=== PATIENT | female | born 1970 | race Caucasian/White ===

== ENCOUNTER 2020-04-22 13:24 | Emergency (ER) | payer OTHER, SELFPAY ==
[2020-04-22 13:35] VITALS: BP 143/100; PULSE 86; RESP 16; TEMP 36.2; O2SAT 100
--- NOTE | 2020-04-22 13:54 | ECG_ITS ---
Measurements Intervals [place] Rate: 85 P: 34 UT: 135 QRS: 2 QRSD: 84 T: -4 QT: 379 QTc: 453 Interpretive Statements SINUS RHYTHM POSSIBLE LEFT ATRIAL ENLARGEMENT BORDERLINE ST-T WAVE ABNORMALITY- DIFFUSE LEADS BORDERLINE ECG Electronically Signed On 04-22-2020 15:18:04 CDT by Deandre Garcia D.O.
--- NOTE | 2020-04-22 13:56 | ED.CHESTPAIN ---
HPI - Chest Pain General Chief Complaint: Chest Pain Stated Complaint: hpb/r arm tingling/blurred vision Time Seen by Provider: 04/22/20 13:40 Source: patient and RN notes reviewed Mode of arrival: ambulatory Limitations: no limitations History of Present Illness HPI narrative: 50-year-old female who presents to express care with complaints of tightness and tingling in chest with heart racing for the past 4 days and intermittent blurry vision. She states that today she had sudden symptoms of migraine type head pain with tingling and numbness down her left arm, states she took goody powder. Patient does have a history of hypertension, asthma, and also states a long history of alcohol use and had been dry for 18 days but relapsed after drinking some wine.Patient denies any pain or visual disturbances at this time MD complaint: chest pain and other (tingling and numbness down left arm) Pertinent past history: other (hypertension, migraine, asthma) Onset (ago): day(s) (4) Timing of current episode: episodic and other (no pain or any tingling or numbness at present time) Prior episodes: Yes Pain location: left chest Pain radiation: left arm Quality: tightness Relieving factors: nothing Exacerbating factors: nothing Associated symptoms: palpitations Treatment prior to arrival: other (goody powder) Risk Factors Coronary artery disease risk factors: hypertension Thoracic aortic dissection risk factors: none Related Data Home Medications Medication Instructions Recorded Confirmed bupropion HCl 150 mg PO DAILY 04/22/20 04/22/20 bupropion HCl 300 mg PO DAILY 04/22/20 04/22/20 metoprolol succinate 50 mg PO DAILY 04/22/20 04/22/20 metoprolol succinate [Toprol XL] 100 mg PO DAILY 04/22/20 04/22/20 Allergies Allergy/AdvReac Type Severity Reaction Status Date / Time erythromycin base Allergy Mild Unknown Verified 04/22/20 15:26 Sulfa (Sulfonamide Allergy Mild Unknown Verified 04/22/20 15:26 Antibiotics) Review of Systems Review of Systems: Narrative: CONSTITUTIONAL: Denies fever, chills, or sweats. EYES: Denies visual changes, redness, or discharge. ENT: Denies rhinorrhea, congestion, sore throat, or otalgia. CARDIOVASCULAR: positive left chest pain, palpitations, no edema. RESPIRATORY: Denies cough or dyspnea. GASTROINTESTINAL: Denies abdominal pain, nausea, vomiting, or diarrhea. GENITOURINARY: Denies dysuria or hematuria. SKIN: Denies rash or itching. MUSCULOSKELETAL: Denies back pain, joint pain, or myalgia. NEUROLOGIC: intermittent headache, left arm numbness and tingling intermittent, or weakness. PSYCHIATRIC: Positiveanxiety or depression. All systems reviewed & are unremarkable except as noted in HPI and below PMFSH Past Medical History Medical History (Updated 04/24/20 @ 15:39 by Ashley Frederick NP) ADHD Alcohol use Asthma History of anxiety History of depression History of hypertension Migraines With left sided aura Scoliosis Social History Social History (Updated 04/23/20 @ 16:44 by Sabrina Stover PA-C) Social History: The patient was adopted and only aware of her grandmother having a CVA. Smoking packs per day: 1 Smoking cigarettes per day: 20.0 Years smoked: 18 Smoking pack-years: 18.00 Smoking status: Former smoker Tobacco type: cigarettes Alcohol intake: current Drinks per week: 24 Alcohol use details: She has been drinking for about 7 years. Most recently she has been drinking 1 bottle of wine per night for 3.5 weeks. Substance use: never Substance use type: does not use Living arrangements: with family Occupation/Education: occupation Gender identity (if verbalized by the patient): Female Spiritual care concerns: No Comments At time of signature, agree with nursing past medical, surgical, social and family history. There is no relevant family history pertinent to the presenting complaint Exam Narrative: Exam Narrative: GENERAL: well appearing, wel
--- NOTE | 2020-04-22 14:14 | PC.NURSE ---
[facility] called to transfer to [facility].
== END 2020-04-22 14:17 | disposition short-term general hospital (02) ==
LOC: EXPCOLL 13:28
PROVIDERS: Emergency Provider Registered Nurse; PCP Family Medicine
DX: R07.9 Chest pain, unspecified (principal); R51 Headache; Z87.891 Personal history of nicotine dependence; J45.909 Unspecified asthma, uncomplicated; F32.9 Major depressive disorder, single episode, unspecified; I10 Essential (primary) hypertension
CPT/HCPCS: 93005; 99215; G0463

== ENCOUNTER 2020-04-22 14:46 | Observation (INO) | payer OTHER, SELFPAY ==
[2020-04-22] VITALS (23 sets, daily range): BP systolic 119–207; BP diastolic 97–170; PULSE 78–101; RESP 16–24; TEMP 36.1–36.8; O2SAT 94–100; BMI 25.9; BMI 26.3
--- NOTE | ~2020-04-22 | XR_ITS ---
EXAMINATION: XR chest 2V DATE: 04/22/2020 16:10 INDICATION: Left upper back pain. Hypertension. TECHNIQUE: Frontal and lateral views of the chest were obtained. COMPARISON: Chest 2 views 01/18/2009 CT abdomen and pelvis 10/08/2013 FINDINGS: There are airspace opacities in left lower lung zone. No pleural effusion or pneumothorax. The heart size is normal. There is a moderate-sized hiatal hernia. IMPRESSION: 1. Airspace opacities in left lower lung zone, consistent with atelectasis versus pneumonia. 2. Moderate-sized hiatal hernia. Reviewed, dictated and finalized at location A. IMPRESSION: 1. Airspace opacities in left lower lung zone, consistent with atelectasis vers us pneumonia. 2. Moderate-sized hiatal hernia.
--- NOTE | ~2020-04-22 | CT_ITS ---
EXAMINATION: CT brain wo con DATE: 04/22/2020 16:08 INDICATION: Headache. Dizziness. TECHNIQUE: Computed tomography (CT) of the head was performed without intravenous contrast. The mA wa s adjusted according to patient size. Iterative reconstruction technique was employed. The dose-lengt h product was 605.33 mGy-cm. COMPARISON: None FINDINGS: There is no intracranial hemorrhage, acute infarction, or abnormal intracranial mass lesion . The ventricles are normal in size. The paranasal sinuses are clear. The orbits are normal. The mast oid air cells are normal. IMPRESSION: 1. Normal brain. Reviewed, dictated and finalized at location A. IMPRESSION: 1. Normal brain.
--- NOTE | 2020-04-22 15:01 | ECG_ITS ---
Measurements Intervals [place] Rate: 78 P: 51 IN: 139 QRS: 11 QRSD: 87 T: 1 QT: 397 QTc: 453 Interpretive Statements SINUS RHYTHM POSSIBLE LEFT ATRIAL ENLARGEMENT BORDERLINE ST-T WAVE ABNORMALITY- DIFFUSE LEADS BORDERLINE ECG Electronically Signed On 04-22-2020 15:20:33 CDT by Deandre Garcia D.O.
[2020-04-22] MEDS: ASPIRIN 81 MG CHEWABLE TABLET 324 MG PO (15:54)
--- NOTE | 2020-04-22 15:55 | ED.GENADULT ---
HPI - General Adult General Chief complaint: Unspecified Stated complaint: CP/BLURRED VISION Time Seen by Provider: 04/22/20 15:38 Source: patient Mode of arrival: EMS Limitations: no limitations History of Present Illness HPI narrative: This is a 50 year old female that presents to the ER for intermittent chest pain over the last 4 days. Describes it as tingling and substernal. Associated with palpitations and tingling in her left arm. Also reports headaches. Reports today she noted some blurry vision in the left eye which concerned her and prompted her to be seen. Reports she has been feeling dizzy. Denies fever, cough, shortness of breath, or current numbness or weakness. Related Data Home Medications Medication Instructions Recorded Confirmed bupropion HCl [Wellbutrin XL] 150 mg PO DAILY 04/22/20 04/22/20 metoprolol succinate [Toprol XL] 100 mg PO DAILY 04/22/20 04/22/20 Allergies Allergy/AdvReac Type Severity Reaction Status Date / Time erythromycin base Allergy Mild Unknown Verified 04/22/20 15:26 Sulfa (Sulfonamide Allergy Mild Unknown Verified 04/22/20 15:26 Antibiotics) Review of Systems Review of Systems: Narrative: CONSTITUTIONAL: Denies fever EYES: Reports visual changes CARDIOVASCULAR: Reports chest pain, palpitations. Denies edema. RESPIRATORY: Denies cough or dyspnea. NEUROLOGIC: Reports headache. Denies numbness, or weakness. All systems reviewed & are unremarkable except as noted in HPI and below PMFSH Past Medical History Medical History (Updated 04/22/20 @ 18:16 by Margy Whitt PA-C) History of anxiety History of depression History of hypertension Surgical History Surgical History (Updated 04/22/20 @ 16:02 by Margy Whitt PA-C) History of section History of hernia repair Social History Social History (Updated 04/22/20 @ 16:03 by Margy Whitt PA-C) Smoking status: Former smoker Alcohol intake: current Substance use: never Gender identity (if verbalized by the patient): Female Exam Narrative: Exam Narrative: GENERAL: Well-appearing, well-nourished, and in no acute distress. HEAD: Normocephalic, atraumatic. EYES: PERRLA and EOMI. ENT: Nares clear, no rhinorrhea or epistaxis. Mucous membranes moist. Oropharynx without tonsillar hypertrophy exudate or other lesions. Bilateral TMs pearly catherine non-bulging NECK: Supple. No adenopathy or masses. No carotid bruits or JVD CHEST: Clear to auscultation. No respiratory distress. No wheezes rales or rhonchi HEART: Regular rate and rhythm. No murmur heard. Normal peripheral pulses. EXTREMITIES: Normal range of motion. No edema. Strength equal in bilateral upper and lower extremities (5/5) SKIN: Warm, dry, no rash. NEURO: No focal deficits. Alert and oriented x3. Cranial nerves II through XII grossly intact. Normal [id number] PSYCH: Normal mood and affect Course Consultations Consultation #1: Spoke with hospitalist about patient and work-up who accepts admission Date: 04/22/20 Time: 18:17 Consultation #2: Spoke with plant taxonomy teacher, Dr. Ayers who reviewed EKG and will consult Date: 04/22/20 Time: 17:30 Vital Signs Vital signs: Vital Signs Temperature 98.3 F 04/22/20 14:52 Pulse Rate 86 04/22/20 14:52 Respiratory Rate 16 04/22/20 14:52 Blood Pressure 181/117 H 04/22/20 14:52 Pulse Oximetry 100 04/22/20 14:52 Temperature 98.3 F 04/22/20 14:52 Pulse Rate 80 04/22/20 17:51 Respiratory Rate 18 04/22/20 16:55 Blood Pressure 149/108 H 04/22/20 17:16 Pulse Oximetry 100 04/22/20 17:51 Medical Decision Making [facility] Narrative Medical decision making narrative: Patient presents to the emergency department with several complaints. Was reporting episodes of chest pain, dizziness, and tingling in the left arm, and headaches. She is afebrile and nontoxic-appearing. She is neurologically intact. Blood pressure elevated on arrival to 181/117. Given nitro and hydralazine with improve
[2020-04-22 16:38] LABS: Basophils Percent Auto 0.8 % (0.2-1.2); Eosinophils Absolute Auto 0.1 K/mm3 (0-0.3); Eosinophils Percent Auto 2.2 % (0-4.4); Hematocrit 43.8 % (37.0-47.0); Immature Granulocyte Absolute 0.01 K/mm3 (0.00-0.031); Immature Granulocyte Percent A 0.2 % (0-0.5); Lymphocytes Absolute Auto 1.15 K/mm3 (0.9-3.2); Lymphocytes Percent Auto 23.3 % (18.3-44.2); Mean Corpuscular HGB Conc 34.2 g/dl (32-36); Mean Corpuscular Hemoglobin 33.2 pg (26-34); Mean Corpuscular Volume 96.9 fl (80-100); Mean Platelet Volume 9.7 fl (7.4-10.4); Monocytes Absolute Auto 0.3 K/mm3 (0.1-0.6); Monocytes Percent Auto 5.3 % (2.6-8.5); Neutrophils Absolute Auto 3.4 K/mm3 (1.3-6.7); Neutrophils Percent Auto 68.2 % (45.5-73.1); Platelet Count Result 207 k/mm3 (150-375); Red Blood Count 4.52 M/mm3 (4.2-5.4); White Blood Count 4.9 K/mm3 (4.5-10.0)
[2020-04-22 16:41] LABS: Add Urine Microscopic? NO; Appearance Urine Clear (Clear); Bilirubin Urine Negative (Negative); Blood Urine Negative (Negative); Color Urine Yellow (Yellow); Glucose Urine UA Negative (Negative); Ketones Urine Negative (Negative); Leukocyte Esterase Ur Negative LEU/UL (Negative); Nitrate Urine Negative (Negative); Protein Urine Negative (Negative); Urobilinogen Urine Negative mg/dL (<2.0)
[2020-04-22] MEDS: NITROGLYCERIN SL 0.4 MG TABLET SUBLINGUAL ×2 (16:46→16:53)
--- NOTE | 2020-04-22 16:46 | PC.NURSE ---
Pt given ntg sublingual for chest pain, states I don't feel right becomes slightly anxious, c/o worsening chest pressure to the middle of her chest. Repeat EKG ordered.
[2020-04-22 16:48] LABS: Partial Thromboplastin Time 22.3 SECONDS (22.3-36.8); Prothrombin Time 12.8 Seconds (11.1-14.7)
--- NOTE | 2020-04-22 16:49 | ECG_ITS ---
Measurements Intervals [place] Rate: 92 P: 22 PA: 130 QRS: -2 QRSD: 89 T: -4 QT: 366 QTc: 455 Interpretive Statements SINUS RHYTHM BORDERLINE ST-T WAVE ABNORMALITY- ANT/INF LEADS BORDERLINE ECG Electronically Signed On 04-22-2020 16:55:50 CDT by Deandre Garcia D.O.
[2020-04-22 16:51] LABS: D Dimer 0.29 ug/mL (<0.48)
--- NOTE | 2020-04-22 16:53 | PC.NURSE ---
Repeat NTG given for chest pain 10/26. Pt becoming more anxious, is concerned about her ride and visitors.
[2020-04-22 16:54] LABS: Amphetamine Screen Urine Negative (Negative); Barbiturate Screen Urine Negative (Negative); Benzodiazepines Screen Urine Negative (Negative); Cannabinoid Screen Urine Negative (Negative); Cocaine Screen Urine Negative (Negative); Methadone Screen Urine Negative (Negative); Opiate Screen Urine Negative (Negative); Phencyclidine Screen Urine Negative (Negative)
--- NOTE | 2020-04-22 16:58 | PC.NURSE ---
Pt states thinks the pain is moving down now from her chest.
[2020-04-22 17:02] LABS: Anion Gap 10 mmol/L (8-16); Blood Urea Nitrogen 18 mg/dL (7-17); Calcium 9.7 mg/dL (8.4-10.2); Carbon Dioxide 26 mmol/L (22-30); Chloride 101 mmol/L (98-107); Estimated CRCL calculation 57 ml/min; Estimated Glomerular Filt Rate > 60; Glucose 106 mg/dL (65-105); Potassium 3.9 mmol/L (3.4-5.0); Sodium 137 mmol/L (137-145)
[2020-04-22 17:03] LABS: Alanine Aminotransferase 24 U/L (4-35); Albumin Level 4.8 g/dL (3.5-5.1); Alkaline Phosphatase 70 U/L (38-126); Aspartate Amino Transferase 29 U/L (14-36); Bilirubin,Total 0.6 mg/dL (0.2-1.3)
[2020-04-22 17:07] LABS: Ethanol < 10 mg/dL (<10)
[2020-04-22 17:14] LABS: Troponin I < 0.012 ng/mL (0.000-0.034)
[2020-04-22] MEDS: SODIUM CHLORIDE 0.9% IV 1,000 ML 999 ML IV CONT (17:48)
[2020-04-22] MEDS: hydrALAZINE HCL 20 MG/ML VIAL 10 MG IV PUSH (18:22)
--- NOTE | 2020-04-22 18:25 | PC.NURSE ---
Pt states that her midsternal chest pain is completely gone at present. States left sided chest pain continues and has been unchanged. States headache has also improved from the tylenol, but that it still remains behind her eyes a bit. Additional medication given IVP for high bp.
[2020-04-22 19:17] LABS: Troponin I < 0.012 ng/mL (0.000-0.034)
--- NOTE | 2020-04-22 20:07 | PC.NURSE ---
This patient, Daniela Pringle, was admitted to IMU Room 214-01 at 1938 on 04/22/20. Patient/family oriented to hospital policies and general routines including ID bracelet, bed and alarms, visiting hours, pain management, procedures, bathroom and other care routines, personal items, smoking policy, room service/diet, and visiting hours. Valuables list has been completed. Information on how to activate the Rapid Response Team has been discussed. Patient/Family are encouraged to report perceived risks to care and to ask questions if they do not understand what they are told or what they should do.
[2020-04-22 22:07] LABS: Troponin I < 0.012 ng/mL (0.000-0.034)
[2020-04-23] VITALS (23 sets, daily range): BP systolic 93–160; BP diastolic 60–111; PULSE 75–95; RESP 16–20; TEMP 35.9–36.6; O2SAT 97–100
--- NOTE | 2020-04-23 | ECHO_ITS ---
Patient Info Name: Daniela Pringle Age: 50 years : 1970 Gender: Female Ht: 64 in Wt: 153 lbs BSA: 1.79 m2 HR: 80 bpm BP: 159 / 106 mmHg Heart Rhythm: Sinus Rhythm Exam Date: 04/23/2020 2:30 PM Exam Location: [facility] Pulmonary Patient Status: Outpatient Admit Date: 04/22/2020 Staff Ordering Physician: Sabrina Stover PA-C Topographical Field Assistant: Santa Petty RDCS Attending Provider: Sabrina Stover PA-C Referring Physician: Ck JASSO; Exam Type: CA echo doppler color flow Study Info Complete two-dimensional, color flow and Doppler transthoracic echocardiogram is performed. Summary 1. Complete two-dimensional, color flow and Doppler transthoracic echocardiogram is performed. 2. Left ventricular chamber dimension is normal. 3. Left ventricular systolic function is normal, estimated at 65-70%. 4. There is mildly increased left ventricular wall thickness. 5. Left ventricular septal wall motion is normal. 6. The left ventricular diastolic function is normal. 7. Left atrial chamber dimension is mildly enlarged. 8. There is mild to moderate mitral valve regurgitation. 9. There is mild to moderate tricuspid valve regurgitation. 10. Mild pulmonary hypertension, estimated pulmonary arterial systolic pressure is 41 mmHg. 11. There is mild pulmonic regurgitation. Left Ventricle Left ventricular chamber dimension is normal. Left ventricular systolic function is normal, estimated at 65-70%. There is mildly increased left ventricular wall thickness. Left ventricular septal wall motion is normal. The left ventricular diastolic function is normal. Right Ventricle Right ventricular chamber dimension is normal. Right ventricular systolic function is normal. Left Atria Left atrial chamber dimension is mildly enlarged. Right Atria Right atrial chamber dimension is normal. Atrial Septum Intact interatrial septum visualized by color flow imaging. Aortic Valve The aortic valve is trileaflet. There is mild aortic valve sclerosis. There is no aortic valve stenosis. There is trace aortic valve regurgitation. Pulmonic Valve The pulmonic valve is normal. There is no pulmonic valve stenosis. There is mild pulmonic regurgitation. Mitral Valve The mitral valve has thickened leaflets. There is no mitral valve stenosis. There is mild to moderate mitral valve regurgitation. Tricuspid Valve The tricuspid valve leaflets are normal. There is no significant tricuspid valve stenosis. There is mild to moderate tricuspid valve regurgitation. Mild pulmonary hypertension, estimated pulmonary arterial systolic pressure is 41 mmHg. Pericardium/Pleural The pericardium appears normal. There is no pericardial effusion. Inferior Vena Cava Normal inferior vena cava with >50% collapse upon inspiration consistent with normal right atrial pressure, 5 mmHg. Aorta The aortic root size at the sinus of Valsalva is normal. The prox ascending aorta size is normal. Left Ventricular Outflow Tract Name Value Normal LVOT 2D LVOT Diameter 1.9 cm LVOT Doppler LVOT Peak Gradient 4 mmHg
[2020-04-23] MEDS: LORazepam 1 MG TABLET PO ×2 (00:06→13:56)
[2020-04-23] MEDS: ACETAMINOPHEN 325 MG TABLET 650 MG PO ×3 (00:07→21:52)
[2020-04-23] MEDS: METOPROLOL SUCCINATE EXT REL 100 MG TABCR PO (10:08)
[2020-04-23] MEDS: METOPROLOL SUCCINATE EXT REL 50 MG TABCR PO (10:09)
[2020-04-23] MEDS: buPROPion HCL XL (24 HR) 150 MG TABCR 300 MG PO (10:09)
[2020-04-23] MEDS: buPROPion HCL XL (24 HR) 150 MG TABCR PO (10:10)
--- NOTE | 2020-04-23 12:30 | PM.CNCAR ---
Assessment and Plan Assessment and plan (1) Lightheadedness: Code(s): R42 - Dizziness and giddiness Status: Acute Assessment and Plan: probably related to market hypertension (2) Alcohol use: Code(s): Z72.89 - Other problems related to lifestyle Status: Acute Assessment and Plan: Intermittently drinking up to 1 bottle wine per night (3) Hypertensive urgency: Code(s): I16.0 - Hypertensive urgency Status: Acute Assessment and Plan: likely the cause of her lightheadedness.continue metoprolol. Will add losartan. Up titrate had as needed (4) Chest pain: Qualifiers: Chest pain type: unspecified Qualified Code(s): R07.9 - Chest pain, unspecified Code(s): R07.9 - Chest pain, unspecified Status: Acute Assessment and Plan: Chest pain is atypical. She has various chest pain symptoms /syndrome including a chest tightness/squeezing that has been present for the past couple months. She also has a low a different type of left-sided chest tightness. And she had the 2 types of chest pain that occurred yesterday in the ER. none of these though are related to exertion. She also has same fluttering and some tingling in the left side of her chest also. Some of these sensations may be related to markedly elevated high blood pressure versus anxiety but cannot exclude angina especially given her abnormal EKG. Start her on aspirin 81 mg p.o. daily. Continue metoprolol. Will initiate losartan therapy 25 mg p.o. daily. EKG will be reordered today and a 2D echocardiogram Doppler was also ordered. She does need a stress test which likely will occur as an outpatient Depending on the results of the above workup. Will check a lipid panel (5) History of anxiety: Code(s): Z86.59 - Personal history of other mental and behavioral disorders Status: Acute (6) Abnormal EKG: Code(s): R94.31 - Abnormal electrocardiogram [ECG] [EKG] Status: Acute Assessment and Plan: will repeat EKG now. History of Present Illness History of Present Illness Consult date/time: 04/23/20 12:30 Requesting physician: Sabrina Stover PA-C Consult reason: chest pain Reason For Visit: Chest pain/hypertensive urgency Narrative: Date of service 04/23/2020 Reason for consultation chest pain History: Patient is a 50-year-old female who does not have known cardiac history. She does have a history of high blood pressure and depression. She came to the hospital because of some dizziness, high blood pressure and Blurry vision in her left eye. She states that her left eye felt as if she was having aura of a migraine which he sometimes has. while in the emergency department she did have an episode of some left-sided, under the breast, chest pain. She was then given nitroglycerin and had anterior chest pressure. She states that it felt as if something was pushing on her. That symptom lasted for about 15 minutes and had waxing waning discomfort that would occur last for about 10-15 seconds at a time. She then later to redevelop the tightness involving the left side and also had some fluttering and butterfly sensation. She does describe some occasional flutters in her chest. Additionally she has a different type of chest discomfort that occurs intermittently on the left side as well as a tightness that she thinks may be related to her back or musculoskeletal. It has been present for the past couple of months and she does say that it is a squeezing sensation but is not brought on with exertion and not associated with other symptoms. She denies any syncope, presyncope, paroxysmal nocturnal dyspnea, orthopnea, edema. Her blood pressure at home was as high is nearly 190 systolic. She currently has no chest pain. Troponins were negative. EKG showed some anteroseptal ST and T-wave abnormalities, consider ischemia Review of Systems Review of Systems: All syste
--- NOTE | 2020-04-23 12:43 | ECG_ITS ---
Measurements Intervals [place] Rate: 71 P: 45 [place]: 127 QRS: 24 QRSD: 90 T: 29 QT: 426 QTc: 465 Interpretive Statements SINUS RHYTHM POSSIBLE LEFT ATRIAL ENLARGEMENT ST-T WAVE ABNORMALITY IN ANTERIOR LEADS- CONSIDER ISCHEMIA ABNORMAL ECG Electronically Signed On 04-23-2020 15:18:33 CDT by Deandre Garica D.O.
[2020-04-23 13:43] LABS: Cholesterol 310 mg/dL (0-200); HDL Direct 72 mg/dL; Triglycerides 187 mg/dL (<150)
[2020-04-23 13:53] LABS: LDL Cholesterol Direct 207 mg/dL
[2020-04-23] MEDS: LOSARTAN POTASSIUM 25 MG TABLET PO (13:56)
[2020-04-23] MEDS: ASPIRIN 81 MG ENTERIC TABLET PO (14:18)
--- NOTE | 2020-04-23 16:34 | PM.IMHP ---
H&P: HPI History of Present Illness Date/Time: 04/23/20 16:34 Chief complaint: Chest pain/hypertensive urgency Narrative: Daniela Pringle is a 50 year old female with a history anxiety, ADHD, who presents to the emergency department after having an episode intermittent sharp, jabbing chest pain to her left chest wall. The patient states for the last few days she has been feeling ?strange?. She has been having the feeling of ?head pressure?, lightheadedness and palpitations with an occasional extra beat. This is worse with activity and or stressful situations. She has also been checking her blood pressure and his been more elevated than normal. Prior to arrival she was swimming and when to walk a hill into her kitchen and had a sudden episode of left-sided blurry vision along with lightheadedness. She took a dose of Excedrin powder with some improvement of her vision but she continued to have some lightheadedness and was having some chest discomfort so decided to come to the hospital to be evaluated. While she was in the ER she reported upper chest sternal pressure with associated lightheadedness. She also has occasional pressure to her bilateral ribs and some numbness and tingling at times. She denies any associated shortness of breath, cough, fevers, chills, nausea, vomiting, abdominal pain, diarrhea, fever, chills, sick contacts, urinary symptoms, leg swelling, calf pain, syncope, or any other symptoms at this time. She does not know her family history because she was adopted. She has never had a cardiac workup before. Code status: Full code PCP: Dr. Lo Review of Systems Review of Systems: All systems reviewed & are unremarkable except as noted in HPI and below PMFSH Past Medical History Medical History (Updated 04/23/20 @ 16:42 by Sabrina Stover PA-C) ADHD Alcohol use Asthma History of anxiety History of depression History of hypertension Migraines With left sided aura Scoliosis Surgical History Surgical History History of section History of hernia repair Hx of colonoscopy Family History Family History Grandparent Cerebrovascular accident Social History Social History (Updated 04/23/20 @ 16:44 by Sabrina Stover PA-C) Social History: The patient was adopted and only aware of her grandmother having a CVA. Smoking packs per day: 1 Smoking cigarettes per day: 20.0 Years smoked: 18 Smoking pack-years: 18.00 Smoking status: Former smoker Tobacco type: cigarettes Alcohol intake: current Drinks per week: 24 Alcohol use details: She has been drinking for about 7 years. Most recently she has been drinking 1 bottle of wine per night for 3.5 weeks. Substance use: never Substance use type: does not use Living arrangements: with family Occupation/Education: occupation Gender identity (if verbalized by the patient): Female Spiritual care concerns: No Meds Home Medications and Allergies Home Medications Medication Instructions Recorded Confirmed Type bupropion HCl 150 mg PO DAILY 04/22/20 04/22/20 History bupropion HCl 300 mg PO DAILY 04/22/20 04/22/20 History metoprolol succinate 50 mg PO DAILY 04/22/20 04/22/20 History metoprolol succinate [Toprol XL] 100 mg PO DAILY 04/22/20 04/22/20 History Allergies Allergy/AdvReac Type Severity Reaction Status Date / Time erythromycin base Allergy Mild Unknown Verified 04/22/20 15:26 Sulfa (Sulfonamide Allergy Mild Unknown Verified 04/22/20 15:26 Antibiotics) Vital Signs Vital Signs - 24 hr 04/22/20 16:46 04/22/20 16:55 04/22/20 17:09 Temperature Pulse Rate 80 91 95 Pulse Rate [Monitor] Respiratory Rate 18 Blood Pressure 179/129 H 147/117 H 138/107 H Pulse Oximetry 99 94 04/22/20 17:10 04/22/20 17:11 04/22/20 17:12 Temperature Pulse Rate 89 92 101 H Pul
[2020-04-23] MEDS: hydrALAZINE HCL 20 MG/ML VIAL 10 MG IV PUSH (20:54)
--- NOTE | 2020-04-23 22:34 | PC.NURSE ---
Pt put sound person light and stated I feel dizzy after I ate When RN went down to speak to pt, she stated she had eaten and gotten up to go to the bathroom and felt dizzy and pressure in her head. RN advised pt not to get up by herself any more without calling for help. BP was 113/77. Pt has been hypertensive and received 10mg hydralazine fitting the parameters with a diastolic of 104. Advised her that it's likely her body adjusting to a normal blood pressure and the medications. Will recheck BP.
[2020-04-24] VITALS (12 sets, daily range): BP systolic 105–140; BP diastolic 80–94; PULSE 72–90; RESP 16–20; TEMP 35.5–36.8; O2SAT 99
[2020-04-24] MEDS: ACETAMINOPHEN 325 MG TABLET 650 MG PO (04:35)
[2020-04-24] MEDS: LORazepam 1 MG TABLET PO (08:39)
[2020-04-24] MEDS: buPROPion HCL XL (24 HR) 150 MG TABCR 300 MG PO (08:40)
[2020-04-24] MEDS: buPROPion HCL XL (24 HR) 150 MG TABCR PO (08:40)
[2020-04-24] MEDS: METOPROLOL SUCCINATE EXT REL 100 MG TABCR PO (08:40)
[2020-04-24] MEDS: ASPIRIN 81 MG ENTERIC TABLET PO (08:41)
[2020-04-24] MEDS: METOPROLOL SUCCINATE EXT REL 50 MG TABCR PO (08:41)
[2020-04-24] MEDS: LOSARTAN POTASSIUM 25 MG TABLET PO (08:42)
--- NOTE | 2020-04-24 12:17 | PM.PNCARD ---
Progress Note: A&P Assessment and Plan (1) Lightheadedness: Code(s): R42 - Dizziness and giddiness Status: Acute Assessment and Plan: Resolved with blood pressure control (2) Alcohol use: Code(s): Z72.89 - Other problems related to lifestyle Status: Acute Assessment and Plan: Intermittently drinking up to 1 bottle wine per night (3) Hypertensive urgency: Code(s): I16.0 - Hypertensive urgency Status: Acute Assessment and Plan: likely the cause of her lightheadedness.continue metoprolol. blood pressure is improved. Continue losartan and metoprolol. Up titrate had as needed (4) Chest pain: Qualifiers: Chest pain type: unspecified Qualified Code(s): R07.9 - Chest pain, unspecified Code(s): R07.9 - Chest pain, unspecified Status: Acute Assessment and Plan: Chest pain is atypical. She has various chest pain symptoms /syndrome including a chest tightness/squeezing that has been present for the past couple months. She also has a low a different type of left-sided chest tightness. And she had the 2 types of chest pain that occurred yesterday in the ER. none of these though are related to exertion. She also has same fluttering and some tingling in the left side of her chest also. Some of these sensations may be related to markedly elevated high blood pressure versus anxiety but cannot exclude angina especially given her abnormal EKG. Continue aspirin, metoprolol, statin, losartan. She should be discharged on p.r.n. nitroglycerin 0.4 mg sublingual chest pain. Outpatient stress test will be scheduled. she will also be discharged on a PPI in the form of omeprazole 20 mg daily (5) History of anxiety: Code(s): Z86.59 - Personal history of other mental and behavioral disorders Status: Acute Assessment and Plan: Needs treatment (6) Abnormal EKG: Code(s): R94.31 - Abnormal electrocardiogram [ECG] [EKG] Status: Acute Assessment and Plan: abnormal and still concerning for anteroseptal ischemia (7) Hyperlipidemia: Code(s): E78.5 - Hyperlipidemia, unspecified Status: Acute Assessment and Plan: will start rosuvastatin 20 mg daily. I did talked about the risks of muscle aches, muscle tissue breakdown, liver dysfunction. She verbalizes understanding Subjective Date/time seen: 04/24/20 12:17 Interval history: 50-year-old mid for hypertension, chest pain and abnormal EKG. Date of service 04/24/2020: She currently has no chest pain, shortness of breath. Echocardiogram read yesterday with normal EF and no wall motion abnormalities. Blood pressure is better. Review of Systems Review of Systems: All systems reviewed & are unremarkable except as noted in HPI and below Constitutional: Constitutional: Denies fatigue, Denies headache(s) and Denies weakness Eyes: Eyes: Reports blurry vision ENT: Reports Normal hearing present, Denies headache(s) and Denies lip swelling Cardiovascular: Cardiovascular: Reports chest pain and Denies dyspnea Respiratory: Respiratory: Denies dyspnea Gastrointestinal: Gastrointestinal: Denies abdominal pain Genitourinary: Genitourinary: Denies hematuria Musculoskeletal: Musculoskeletal: Reports back pain Integumentary/Breasts: Skin/Breast: Denies dry skin Neurologic: Reports Normal hearing present, Denies headache(s) and Denies weakness Psychiatric: Psychiatric: Reports anxiety Endocrine: Endocrine: Denies fatigue Hematologic/Lymphatic: Hematologic/Lymphatic: Denies easy bleeding Allergic/Immunologic: Allergic/Immunologic: Denies GI upset with certain foods and Denies lip swelling Exam Narrative: Exam Narrative: patient is alert oriented. Pleasant but anxious Const: General: no acute distress HENMT: General nose exam: Normal nares present Eyes: Sclera: sclerae normal Neck: Neck: supple and no JVD Chest: Other: no
--- NOTE | 2020-04-24 13:29 | PM.DS ---
DS: Admitting Diagnosis Admitting Diagnosis Admitting Diagnosis: Chest pain/hypertensive urgency DS: Discharge Diagnosis Discharge Diagnosis (1) Chest pain: Qualifiers: Chest pain type: unspecified Qualified Code(s): R07.9 - Chest pain, unspecified Code(s): R07.9 - Chest pain, unspecified Status: Acute Assessment and Plan: Patient presented with atypical chest pain and was found to have an abnormal EKG was admitted for further telemetry, cardiac workup and cardiology evaluation. Troponins were negative x3. Normal chest x-ray. Echocardiogram showed Left ventricular chamber dimension is normal. Left ventricular systolic function is normal, estimated at 65-70%. There is mildly increased left ventricular wall thickness. Left ventricular septal wall motion is normal. The left ventricular diastolic function is normal. BP is improved after starting new medication. Cardiology would like to start the patient on Aspirin 81 mg, Statin, and discharge on Nitro SL PRN for chest pain. Continue Metoprolol. She will be scheduled for out patient stress test. Return to ER warnings given. Cardiology evaluated the patient and recommended starting 81 mg aspirin daily Continue monitoring the patient's chest pain in telemetry. Cardiology's input is greatly appreciated. (2) Abnormal EKG: Code(s): R94.31 - Abnormal electrocardiogram [ECG] [EKG] Status: Acute Assessment and Plan: EKG is abnormal showing possible atrial enlargement and ST T-wave abnormality in anterior leads. At this time troponins are normal. Cardiology would like stress test as an outpatient and will be discharged with nitroglycerin to take as needed for chest pain. She is not have any chest pain at this time (3) Hypertensive urgency: Code(s): I16.0 - Hypertensive urgency Status: Acute Assessment and Plan: Patient's blood pressure is been uncontrolled while she has been here 150 systolic and 100 diastolic. Continue losartan 25 mg (4) Alcohol use: Code(s): Z72.89 - Other problems related to lifestyle Status: Acute Assessment and Plan: Patient has been drinking 1 bottle 1 at night for the last 3-1/2 weeks. Last night her CIWA was 9 and she was given IV Ativan. Her CIWA today has been stable and most of her symptoms have been her underlying Anxiety which IV Ativan has helped. Educated patient to quit drinking alcohol to prevent further issues in the future. (5) Lightheadedness: Code(s): R42 - Dizziness and giddiness Status: Acute Assessment and Plan: Asymptomatic during hospitalization. Most likely secondary to uncontrolled high blood pressure. (6) History of anxiety: Code(s): Z86.59 - Personal history of other mental and behavioral disorders Status: Acute Assessment and Plan: Has a history of anxiety in the past. She states she had been on benzos and was weaned off over time after having withdrawal symptoms. She asked me about prescribing her something for anxiety and I suggested prescribing her BuSpar but she states she has taken in the past without any improvement. I told her this is something that she will need to talk to her primary care provider about and see what they would like to prescribe DS: Summary Hospital Course Reason for hospitalization: Daniela Pringle is a 50 year old female with a history anxiety, ADHD, who presents to the emergency department after having an episode intermittent sharp, jabbing chest pain to her left chest wall. The patient states for the last few days she has been feeling ?strange?. She has been having the feeling of ?head pressure?
== END 2020-04-24 15:10 | disposition home or self-care (01) ==
LOC: ANHED 18:16 → ANHIMU 18:46
PROVIDERS: Internal Medicine Cardiovascular Disease; Physician Assistant; Admitting Provider Family Medicine; Emergency Provider Emergency Medicine; PCP Family Medicine; Visit Provider Internal Medicine
DX: R07.9 Chest pain, unspecified (principal); R94.31 Abnormal electrocardiogram [ECG] [EKG]; I16.0 Hypertensive urgency; Z72.89 Other problems related to lifestyle; R42 Dizziness and giddiness; Z86.59 Personal history of other mental and behavioral disorders; Z87.891 Personal history of nicotine dependence; E78.5 Hyperlipidemia, unspecified
CPT/HCPCS: 36415; 70450; 71046; 80048; 80061; 80076; 80307; 81003; 84484; 85025; 85380; 85610; 85730; 93005; 93306; 96361; 96365; 96374; 96375; 99285; A9270; G0378; G0379; J0131; J0360; J7030

== ENCOUNTER 2020-11-01 10:07 | Outpatient (CLI) | payer OTHER, SELFPAY ==
--- NOTE | 2020-11-04 12:46 | WPDHOLTEREM ---
Holter/Event Monitor Holter/Event Monitor Date of procedure: 11/01/20 Procedure Type: 48 hour holter monitor Indications: Palpitations Conclusion: 1. 48 hour holter monitor on 11/01/20. 2. Underlying rhythm is sinus rhythm. HR range 66-125 bpm; average HR 88 bpm. 3. There are 47 premature supraventricular complexes. No supraventricular tachycardia. 4. No premature ventricular complexes. No ventricular tachycardia. 5. No sinoatrial or atrioventricular blocks. No significant pauses greater than 2 seconds. 6. Patient reports symptoms of heart racing, palpitations which demonstrate sinus rhythm, HR range 75-105 bpm.
== END 2020-11-01 10:08 | disposition home or self-care (01) ==
PROVIDERS: PCP Family Medicine; Visit Provider Family Medicine
DX: R00.2 Palpitations (principal)
CPT/HCPCS: 86706; 93225; 93226

== ENCOUNTER 2022-05-15 12:03 | Emergency (ER) | payer OTHER, SELFPAY ==
--- NOTE | ~2022-05-15 | US_ITS ---
EXAMINATION: US pelvic complete w TV DATE: 05/15/2022 15:28 INDICATION: Right adnexal cyst seen on CT Comparison:CT dated 05/15/2022 TECHNIQUE: Multiple transabdominal and endovaginal sonographic images of the pelvis performed. FINDINGS: The uterus measures 6.6 x 3.2 x 3 cm. The endometrial complex measures 7 mm. The right ovary measures 1.9 x 2 x 1.5 cm. There is a 1.5 cm hypoechoic mass of the right ovary, like ly complicated cyst. The left ovary is not visualized. There is no free fluid in the pelvis. There are no abnormal masses seen on either side. IMPRESSION: 1. Right ovarian hypoechoic mass measuring 1.5 cm, likely complicated cysts. Recommend follow-up ultr asound in 4-6 weeks. Reviewed, dictated and finalized at location B. IMPRESSION: 1. Right ovarian hypoechoic mass measuring 1.5 cm, likely complicated cysts. Re commend follow-up ultrasound in 4-6 weeks.
--- NOTE | ~2022-05-15 | CT_ITS ---
EXAMINATION: CT abdomen pelvis w con DATE: 05/15/2022 13:38 INDICATION: Right lower quadrant pain TECHNIQUE: Computed tomography (CT) of the abdomen and pelvis was performed with 100 cc Omnipaque 350 intravenous contrast. The dose-length product was 315.04 mGy-cm. Automated exposure control and iter ative reconstruction technique were employed. COMPARISON: CT dated 10/08/2013 FINDINGS: There is a large hiatal hernia. Heart size normal. No significant pleural or pericardial ef fusion. No significant pleural or pericardial effusion. No significant vascular abnormality. No lymph adenopathy. Normal appendix. There is a 1.9 cm cyst in the right adnexa, likely ovarian. Nonobstructi ve bowel gas pattern. The liver, spleen, pancreas, adrenal glands and left kidney are unremarkable. There is a small subcen timeter hypodensity in the right kidney, most likely benign. No free air or free fluid. Gallbladder i s present. Bladder is unremarkable. There is scoliosis. Moderate lumbar spondylosis. IMPRESSION: 1. Right adnexal cyst measuring 1.9 cm, likely ovarian. Reviewed, dictated and finalized at location B.
[2022-05-15 12:11] VITALS: BP 122/80; PULSE 107; RESP 18; TEMP 36.7; O2SAT 99
[2022-05-15 12:25] LABS: Basophils Absolute Auto 0.1 K/mm3 (0.0-0.1); Basophils Percent Auto 1.3 % (0.2-1.2); Eosinophils Percent Auto 0.8 % (0-4.4); Hemoglobin 13.3 g/dL (12.0-15.0); Immature Granulocyte Absolute 0.01 K/mm3 (0.00-0.031); Immature Granulocyte Percent A 0.2 % (0-0.5); Lymphocytes Absolute Auto 1.16 K/mm3 (0.9-3.2); Lymphocytes Percent Auto 24.3 % (18.3-44.2); Mean Corpuscular Hemoglobin 33.6 pg (26-34); Mean Platelet Volume 9.1 fl (7.4-10.4); Monocytes Absolute Auto 0.3 K/mm3 (0.1-0.6); Monocytes Percent Auto 7.1 % (2.6-8.5); Neutrophils Absolute Auto 3.2 K/mm3 (1.3-6.7); Neutrophils Percent Auto 66.3 % (45.5-73.1); Platelet Count Result 270 k/mm3 (150-375); Red Blood Count 3.96 M/mm3 (4.2-5.4); Red Cell Distribution Width 11.9 % (11.5-14.5); White Blood Count 4.8 K/mm3 (4.5-10.0)
[2022-05-15 12:38] LABS: Appearance Urine Cloudy (Clear); Bilirubin Urine 1+ (Negative); Blood Urine Negative (Negative); Color Urine Yellow (Yellow); Glucose Urine UA Negative (Negative); Ketones Urine Negative (Negative); Leukocyte Esterase Ur Negative LEU/UL (Negative); Nitrate Urine Negative (Negative); Protein Urine Negative (Negative); Urobilinogen Urine 0.2 mg/dL (<2.0); pH Urine 5.5 (5.0-9.0)
[2022-05-15 12:44] LABS: Bacteria Urine 4+ /hpf; Mucus Urine Few /lpf; Squamous Epithelial Cell Urine Many /hpf (Few); WBC Urine 16-20 /hpf
[2022-05-15 12:45] LABS: Add Urine Microscopic? YES
[2022-05-15 12:47] LABS: Alanine Aminotransferase 74 U/L (6-35); Albumin Level 4.8 g/dL (3.5-5.1); Alkaline Phosphatase 108 U/L (38-126); Anion Gap 16 mmol/L (8-16); Aspartate Amino Transferase 103 U/L (14-36); Bilirubin,Total 1.6 mg/dL (0.2-1.3); Blood Urea Nitrogen 22 mg/dL (7-17); Calcium 10.7 mg/dL (8.4-10.2); Carbon Dioxide 18 mmol/L (22-30); Chloride 101 mmol/L (98-107); Estimated CRCL calculation 37 ml/min; Estimated Glomerular Filt Rate 40; Glucose 139 mg/dL (65-110); Lipase 599 U/L (23-300); Potassium 4.7 mmol/L (3.4-5.0); Sodium 135 mmol/L (137-145)
[2022-05-15 13:01] VITALS: BP 110/81; PULSE 87; RESP 16; O2SAT 99
[2022-05-15 15:38] VITALS: BP 112/84; PULSE 86; RESP 14; O2SAT 99
--- NOTE | 2022-05-15 16:27 | ED.ABDPAIN ---
HPI - Abdominal Pain General Chief Complaint: Abdominal Pain Stated Complaint: r abd pain Time Seen by Provider: 05/15/22 12:56 History of Present Illness HPI narrative: Patient is a 52-year-old female who presents ER with right lower quadrant abdominal pain. Ongoing for 4 days. Aching. Nonradiating. No urinary frequency urgency or dysuria. No vaginal bleeding. She is without diarrhea. Has been having increased pain with palpation certain movements. Referred here from urgent care. No history of appendectomy. Related Data Home Medications Medication Instructions Recorded Confirmed bupropion HCl 150 mg 24 hr tablet, 150 mg PO DAILY 04/22/20 04/22/20 extended release bupropion HCl 300 mg 24 hr tablet, 300 mg PO DAILY 04/22/20 04/22/20 extended release metoprolol succinate 100 mg 100 mg PO DAILY 04/22/20 04/22/20 tablet,extended release 24 hr (Toprol XL) metoprolol succinate 50 mg 50 mg PO DAILY 04/22/20 04/22/20 tablet,extended release 24 hr Allergies Allergy/AdvReac Type Severity Reaction Status Date / Time erythromycin base Allergy Mild Unknown Verified 05/15/22 12:14 Sulfa (Sulfonamide Allergy Mild Unknown Verified 05/15/22 12:14 Antibiotics) [facility] Past Medical History Medical History (Updated 05/15/22 @ 16:28 by Cornel Morillo MD) ADHD Alcohol use Asthma History of anxiety History of depression History of hypertension Migraines With left sided aura Scoliosis Surgical History Surgical History History of section History of hernia repair Hx of colonoscopy Family History Family History Grandparent Cerebrovascular accident Social History Social History (Updated 04/23/20 @ 16:44 by Sabrina Chang PA-C) Social History: The patient was adopted and only aware of her grandmother having a CVA. Smoking packs per day: 1 Smoking cigarettes per day: 20.0 Years smoked: 18 Smoking pack-years: 18.00 Smoking status: Former smoker Tobacco type: cigarettes Alcohol intake: current Drinks per week: 24 Alcohol use details: She has been drinking for about 7 years. Most recently she has been drinking 1 bottle of wine per night for 3.5 weeks. Substance use: never Substance use type: does not use Gender identity (if verbalized by the patient): Female Spiritual care concerns: No Exam Narrative: GENERAL: Well-appearing, well-nourished, and in no acute distress. HEAD: Normocephalic, atraumatic. EYES: PERRL and EOMI. ENT: Mucous membranes moist. CHEST: Clear to auscultation. No respiratory distress. HEART: Regular rate and rhythm. Normal peripheral pulses. ABDOMEN: Soft, tender palpation right lower quadrant without guarding, nondistended. EXTREMITIES: Normal range of motion. No edema. SKIN: Warm, dry, no rash. Bruising over the right lower quadrant in the shape of fingerprints from patient's repeated palpation. NEURO: Alert and oriented x3. PSYCH: Normal mood and affect. Course Course Emergency Course: Patient informed of results. Discussed follow-up plans and patient verbalized understanding. Discharge home. Vital Signs Vital signs: Vital Signs Temperature 98.0 F 05/15/22 12:11 Pulse Rate 107 H 05/15/22 12:11 Respiratory Rate 18 05/15/22 12:11 Blood Pressure 122/80 05/15/22 12:11 Pulse Oximetry 99 05/15/22 12:11 Oxygen Delivery Room Air 05/15/22 12:11 Temperature 98.0 F 05/15/22 12:11 Pulse Rate 86 05/15/22 15:38 Respiratory Rate 14 05/15/22 15:38 Blood Pressure 112/84 05/15/22 15:38 Pulse Oximetry 99 05/15/22 15:38 Oxygen Delivery Room Air 05/15/22 12:11 MDM - Abdominal Pain Lab Data Result diagrams: 05/15/22 12:17 05/15/22 12:17 Labs: Lab Results 05/15/22 05/15/22 05/15/22 Range/Units 12:17 12:17 12:32 WBC 4.8 (4.5-10.0) K/mm3
[2022-05-15 16:44] VITALS: BP 112/82; PULSE 88; RESP 18; O2SAT 98
== END 2022-05-15 16:45 | disposition home or self-care (01) ==
PROVIDERS: Emergency Provider Emergency Medicine; PCP Family Medicine
DX: N83.201 Unspecified ovarian cyst, right side (principal); I10 Essential (primary) hypertension; J45.909 Unspecified asthma, uncomplicated; F41.9 Anxiety disorder, unspecified; F32.A Depression, unspecified; F90.9 Attention-deficit hyperactivity disorder, unspecified type; Z87.891 Personal history of nicotine dependence
CPT/HCPCS: 36415; 74177; 76830; 76856; 80053; 81001; 83690; 85025; 87086; 87088; 99284; Q9967

== ENCOUNTER 2022-11-15 17:02 | Outpatient (CLI) | payer OTHER, SELFPAY ==
--- NOTE | ~2022-11-15 | MM_ITS ---
EXAMINATION: MM screening beto BI w larry HISTORY: Screening TECHNIQUE: Craniocaudal and mediolateral oblique 3-D tomosynthesis images were obtained and synthetic 2-D images were generated. CAD analysis was submitted and interpreted. COMPARISON: No prior mammogram is available for comparison at this institution. BREAST PARENCHYMAL COMPOSITION: There are scattered areas of fibroglandular density. FINDINGS: There is no evidence of suspicious mass, calcification, or architectural distortion to sugg est malignancy in either breast. There has been no suspicious interval change. IMPRESSION: 1. No mammographic evidence of malignancy. 2. Recommend routine screening mammography in one year. BI-RADS Category 1: Negative Reviewed, dictated and finalized at location A.
== END 2022-11-15 17:03 | disposition home or self-care (01) ==
PROVIDERS: PCP Family Medicine; Visit Provider Nurse Practitioner
DX: Z12.31 Encounter for screening mammogram for malignant neoplasm of breast (principal)
CPT/HCPCS: 77063; 77067

== ENCOUNTER 2022-11-29 10:33 | Outpatient (CLI) | payer OTHER, SELFPAY ==
--- NOTE | ~2022-11-29 | XR_ITS ---
Clinical Indication: Chest pain PA and lateral views of the chest: Comparison: 04/22/2020 Findings: The lungs are clear, without evidence of focal consolidation or pleural effusion. Cardiome diastinal silhouette is within normal limits. Moderate to large hiatal hernia again present. Stable d extroscoliosis of the thoracic spine. Impression: Clear lungs. Stable moderate to large hiatal hernia. Stable dextroscoliosis of the thoracic spine. Reviewed, dictated and finalized at location M. Impression: Clear lungs. Stable moderate to large hiatal hernia. Stable dextroscoliosis of the thoracic spine.
--- NOTE | ~2022-11-29 | XR_ITS ---
Cervical Spine: AP, lateral, open-mouth views Clinical History: Pain Findings: The normal lordotic curve is maintained. No fracture or subluxation seen. There is advanced degenerative disc narrowing at C4-C5 and C5-C6. There is associated uncovertebral degenerative crystal e at these levels. Pre-vertebral soft tissues are unremarkable. Impression: Advanced degenerative disc narrowing at C4-C5 and C5-C6, with uncovertebral degenerative change at th patel levels. Reviewed, dictated and finalized at location . Impression: Advanced degenerative disc narrowing at C4-C5 and C5-C6, with uncovertebral deg enerative change at these levels.
== END 2022-11-29 10:34 | disposition home or self-care (01) ==
PROVIDERS: PCP Family Medicine; Visit Provider Family Medicine
DX: R07.9 Chest pain, unspecified (principal); K44.9 Diaphragmatic hernia without obstruction or gangrene; M41.9 Scoliosis, unspecified; M50.321 Other cervical disc degeneration at C4-C5 level; M50.322 Other cervical disc degeneration at C5-C6 level
CPT/HCPCS: 71046; 72040

== ENCOUNTER 2023-01-17 01:20 | Day surgery (SDC) | payer OTHER, SELFPAY ==
[2022-12-31 12:11] VITALS: BMI 24.1
[2023-01-17 07:19] VITALS: BP 125/85; PULSE 75; RESP 18; TEMP 36.4; O2SAT 99
[2023-01-17] MEDS: LACTATED RINGERS 1,000 ML 150 ML IV CONT (07:37)
--- NOTE | 2023-01-17 07:48 | PM.HPGS ---
History of Present Illness History of Present Illness Consent: Risks, benefits, and alternatives have been discussed and questions answered. Patient agrees to proceed with procedure. Chief complaint: neoplasm screening, diaphragmatic hernia Narrative: Daniela Pringle is a 53 year old female Referred for both colonoscopy an EGD. Patient desires neoplasia screening. Her current weight appetite and bowel movements are normal. Patient denies abdominal pain. She has had no bleeding. Family history noncontributory. Additionally patient known to have a sliding hiatal hernia. EGD is requested to assess the status of this hernia. She does complain of occasional heartburn. Appears well controlled currently taking omeprazole 20mg p.o. daily. Family history noncontributory. Patient denies any dysphagia. She has had no weight loss or bleeding. Review of Systems Review of Systems: Review of systems noncontributory. [facility] Past Medical History Medical History (Updated 01/17/23 @ 07:50 by Edouard Obrien MD) ADHD Alcohol use Asthma History of anxiety History of depression History of hypertension Migraines With left sided aura Scoliosis Surgical History Surgical History History of section History of hernia repair Hx of colonoscopy Family History Family History Grandparent Cerebrovascular accident Social History Social History (Updated 04/23/20 @ 16:44 by Sabrina Chang, PAZaireC) Social History: The patient was adopted and only aware of her grandmother having a CVA. Smoking packs per day: 1 Smoking cigarettes per day: 20.0 Years smoked: 18 Smoking pack-years: 18.00 Smoking status: Former smoker Tobacco type: cigarettes Alcohol intake: current Drinks per week: 24 Alcohol use details: rarely Substance use: current Substance use type: marijuana Last use: nightly Living arrangements: with family Occupation/Education: occupation Gender identity (if verbalized by the patient): Female Spiritual care concerns: No Meds Home Medications and Allergies Home Medications Medication Instructions Recorded Confirmed Type bupropion HCl 150 mg 24 hr tablet, 150 mg PO DAILY 04/22/20 12/31/22 History extended release bupropion HCl 300 mg 24 hr tablet, 300 mg PO DAILY 04/22/20 12/31/22 History extended release metoprolol succinate 100 mg 100 mg PO DAILY 04/22/20 01/17/23 History tablet,extended release 24 hr (Toprol XL) metoprolol succinate 50 mg 50 mg PO DAILY 04/22/20 12/31/22 History tablet,extended release 24 hr aspirin 81 mg tablet,delayed 81 mg PO QAM #30 tabs 04/23/20 12/31/22 Rx release rosuvastatin 10 mg tablet (Crestor) 20 mg PO QAM #30 tabs 04/24/20 12/31/22 Rx albuterol sulfate 90 mcg/actuation 2 inh inhalation Q4H PRN Shortness 12/31/22 12/31/22 History aerosol inhaler Of Breath amlodipine 5 mg tablet 5 mg PO DAILY 12/31/22 12/31/22 History lorazepam 0.5 mg tablet 0.5 mg PO TID PRN Anxiety 12/31/22 12/31/22 History losartan 100 mg tablet 100 mg PO DAILY 12/31/22 12/31/22 History Allergies Allergy/AdvReac Type Severity Reaction Status Date / Time erythromycin base Allergy Mild Unknown Verified 01/17/23 07:18 Sulfa (Sulfonamide Allergy Mild Unknown Verified 01/17/23 07:18 Antibiotics) Vital Signs Vital Signs - 24 hr 01/17/23 07:19 Temperature 97.5 F L Pulse Rate 75 Respiratory Rate 18 Blood Pressure 125/85 Pulse Oximetry 99 Oxygen Delivery Room Air Exam Narrative: Physical exam reveals patient to be alert. Vital signs stable. HEENT exam is unremarkable. Patient is anicteric. Lungs are clear to auscultation and percussion. Heart is without murmur or extra sounds. Abdomen bowel sounds are present soft nontender with no organomegaly. Digital external rectal exam is normal. Ass
--- NOTE | 2023-01-17 08:01 | WPDANESEPPF ---
Anes - Initial Pre Proc Eval Procedure: Operation Date: 01/17/23 08:30 Proposed Procedures p Esophagogastroduodenoscopy & Screening Colonoscopy - Edouard Obrien MD Date/Time: 01/17/23 08:01 Surgeon: Edouard Obrien MD Pre Op Diagnosis: neoplasm screening, diaphragmatic hernia Patient Data Age: 53 Gender: F Height: 1.63 m Weight: 63.7 kg Last Vital Signs Temp 97.5 F L 01/17/23 07:19 Pulse 75 01/17/23 07:19 Resp 18 01/17/23 07:19 BP 125/85 01/17/23 07:19 Pulse Ox 99 01/17/23 07:19 O2 Del Method Room Air 01/17/23 07:19 Allergies Allergy/AdvReac Type Severity Reaction Status Date / Time erythromycin base Allergy Mild Unknown Verified 01/17/23 07:18 Sulfa (Sulfonamide Allergy Mild Unknown Verified 01/17/23 07:18 Antibiotics) Home Medications Medication Instructions Recorded Confirmed Type bupropion HCl 150 mg 24 hr tablet, 150 mg PO DAILY 04/22/20 12/31/22 History extended release bupropion HCl 300 mg 24 hr tablet, 300 mg PO DAILY 04/22/20 12/31/22 History extended release metoprolol succinate 100 mg 100 mg PO DAILY 04/22/20 01/17/23 History tablet,extended release 24 hr (Toprol XL) metoprolol succinate 50 mg 50 mg PO DAILY 04/22/20 12/31/22 History tablet,extended release 24 hr aspirin 81 mg tablet,delayed 81 mg PO QAM #30 tabs 04/23/20 12/31/22 Rx release rosuvastatin 10 mg tablet (Crestor) 20 mg PO QAM #30 tabs 04/24/20 12/31/22 Rx albuterol sulfate 90 mcg/actuation 2 inh inhalation Q4H PRN Shortness 12/31/22 12/31/22 History aerosol inhaler Of Breath amlodipine 5 mg tablet 5 mg PO DAILY 12/31/22 12/31/22 History lorazepam 0.5 mg tablet 0.5 mg PO TID PRN Anxiety 12/31/22 12/31/22 History losartan 100 mg tablet 100 mg PO DAILY 12/31/22 12/31/22 History Patient hx anesthesia problems: none Family hx anesthesia problems: none Results Review: All pre-operative results and documents have been reviewed as part of the pre-operative evaluation. [facility] Past Medical History Medical History (Updated 01/17/23 @ 07:50 by Edouard Obrien MD) ADHD Alcohol use Asthma History of anxiety History of depression History of hypertension Migraines With left sided aura Scoliosis Surgical History Surgical History History of section History of hernia repair Hx of colonoscopy Family History Family History Grandparent Cerebrovascular accident Social History Social History (Updated 04/23/20 @ 16:44 by Sabrina Chang, JENNIE) Social History: The patient was adopted and only aware of her grandmother having a CVA. Smoking packs per day: 1 Smoking cigarettes per day: 20.0 Years smoked: 18 Smoking pack-years: 18.00 Smoking status: Former smoker Tobacco type: cigarettes Alcohol intake: current Drinks per week: 24 Alcohol use details: rarely Substance use: current Substance use type: marijuana Last use: nightly Living arrangements: with family Occupation/Education: occupation Gender identity (if verbalized by the patient): Female Spiritual care concerns: No Anes - Eval Final PreProcedure Day of Procedure 01/17/23 08:01 Patient weight: normal Heart: regular rate and rhythm Lungs: clear to auscultation Airway: Mallampati scale class II Neurological: alert and oriented Last oral intake: >/= 8 hours ASA classification: III Emergent: no Anesthetic plan: proceed Anesthesia type and monitoring: general GIVS and standard monitoring Results Review: All pre-operative results and documents have been reviewed as part of the pre-operative evaluation. Informed Consent: The patient's anesthetic plan and its attendant risks and benefits were discussed with the patient/family/POA. Questions were solicited and answers provided to the satisfaction of the patient/family/POA.
--- NOTE | 2023-01-17 08:41 | SUR.OPER ---
EGD ended 834 colonoscopy started 840
[2023-01-17 08:56] VITALS: BP 112/81; PULSE 81; RESP 16; O2SAT 98
[2023-01-17 09:06] VITALS: BP 112/66; PULSE 86; RESP 16; O2SAT 98
[2023-01-17 09:16] VITALS: BP 124/68; PULSE 84; RESP 18; O2SAT 99
== END 2023-01-17 09:30 | disposition home or self-care (01) ==
PROVIDERS: PCP Family Medicine; Visit Provider Internal Medicine Gastroenterology
PROC: 0DJ08ZZ Inspection of Upper Intestinal Tract, Via Natural or Artificial Opening Endoscopic (ICD-10-PCS; CPT 43235; principal; 2023-01-17 08:30)
DX: Z12.11 Encounter for screening for malignant neoplasm of colon (principal); K44.9 Diaphragmatic hernia without obstruction or gangrene; F90.9 Attention-deficit hyperactivity disorder, unspecified type; J45.909 Unspecified asthma, uncomplicated; F41.9 Anxiety disorder, unspecified; F32.A Depression, unspecified; Z87.891 Personal history of nicotine dependence; F12.90 Cannabis use, unspecified, uncomplicated; Z79.82 Long term (current) use of aspirin; Z79.51 Long term (current) use of inhaled steroids
CPT/HCPCS: 45378; 43235; J2704; J7120

== ENCOUNTER 2023-06-11 16:36 | Emergency (ER) | payer OTHER, SELFPAY ==
--- NOTE | ~2023-06-11 | CT_ITS ---
EXAMINATION: CT abdomen pelvis w con DATE: 06/11/2023 23:25 INDICATION: Upper abdominal pain. TECHNIQUE: Computed tomography (CT) of the abdomen and pelvis was performed with 100 mL Omnipaque 350 intravenous contrast. Automated exposure control and iterative reconstruction technique were employe d. The dose-length product was 220.49 mGy-cm. COMPARISON: CT abdomen and pelvis 05/15/2022 FINDINGS: The visualized portions of the lung bases demonstrate mild atelectasis. No pleural effusion . There is a large sliding hiatal hernia. The heart size is normal. No pericardial effusion. The live r, gallbladder, spleen, pancreas, adrenal glands, and left kidney are normal. There is a 5 mm cyst in right kidney. There are no dilated loops of bowel. The appendix is normal. There is an anastomosis i n the sigmoid colon. Aortic atherosclerosis is noted. There are no pathologically enlarged lymph node s. There is no free intraperitoneal fluid. There is lumbar levoscoliosis and severe spondylosis. Ther e is thoracic dextroscoliosis and severe spondylosis. IMPRESSION: 1. Large sliding hiatal hernia. Reviewed, dictated and finalized at location E.
--- NOTE | ~2023-06-11 | XR_ITS ---
EXAMINATION: XR chest 2V DATE: 06/11/2023 16:51 INDICATION: Chest tightness. TECHNIQUE: Frontal and lateral views of the chest were obtained. COMPARISON: Chest 2 views 11/29/2022, CT abdomen and pelvis 05/15/2022 FINDINGS: There is mild atelectasis in left lower lobe. A calcified left lung nodule is consistent wi th old granulomatous disease. No pleural effusion or pneumothorax. The heart size is normal. There is a large hiatal hernia. IMPRESSION: 1. Mild atelectasis in left lower lobe. 2. Large hiatal hernia. Reviewed, dictated and finalized at location E.
--- NOTE | 2023-06-11 16:38 | ECG_ITS ---
Measurements Intervals [place] Rate: 94 P: 42 TX: 126 QRS: 5 QRSD: 80 T: 28 QT: 349 QTc: 437 Interpretive Statements SINUS RHYTHM POSSIBLE LEFT ATRIAL ENLARGEMENT [-0.1mV P WAVE IN V1/V2] LOW QRS VOLTAGE IN PRECORDIAL LEADS [QRS DEFLECTION < 1.0 mV IN CHEST LEADS] ST DEVIATION AND MODERATE T-WAVE ABNORMALITY, CONSIDER ANTERIOR ISCHEMIA [-0.1+ mV T WAVE IN V3/V4] COMPARED TO ECG 04/23/2020 12:56:39 NO SIGNIFICANT CHANGES Electronically Signed On 06-11-2023 20:01:30 CDT by Denise Styles M.D.
[2023-06-11 16:41] VITALS: BP 105/75; PULSE 100; RESP 20; TEMP 36.4; O2SAT 99
[2023-06-11 16:57] LABS: Basophils Absolute Auto 0.1 K/mm3 (0.0-0.1); Basophils Percent Auto 0.8 % (0.2-1.2); Eosinophils Absolute Auto 0.1 K/mm3 (0-0.3); Eosinophils Percent Auto 1.1 % (0-4.4); Hematocrit 38.7 % (37.0-47.0); Immature Granulocyte Absolute 0.03 K/mm3 (0.00-0.031); Immature Granulocyte Percent A 0.4 % (0-0.5); Lymphocytes Absolute Auto 2.33 K/mm3 (0.9-3.2); Lymphocytes Percent Auto 31.5 % (18.3-44.2); Mean Corpuscular HGB Conc 33.6 g/dl (32-36); Mean Corpuscular Hemoglobin 31.6 pg (26-34); Mean Corpuscular Volume 93.9 fl (80-100); Monocytes Absolute Auto 0.6 K/mm3 (0.1-0.6); Monocytes Percent Auto 8.4 % (2.6-8.5); Neutrophils Absolute Auto 4.3 K/mm3 (1.3-6.7); Neutrophils Percent Auto 57.8 % (45.5-73.1); Platelet Count Result 394 k/mm3 (150-375); Red Blood Count 4.12 M/mm3 (4.2-5.4); Red Cell Distribution Width 12.2 % (11.5-14.5); White Blood Count 7.4 K/mm3 (4.5-10.0)
[2023-06-11 17:07] LABS: INR 0.9
[2023-06-11 17:08] LABS: Partial Thromboplastin Time 22.9 SECONDS (22.3-36.8)
[2023-06-11 17:09] LABS: Alanine Aminotransferase 40 U/L (6-35); Albumin Level 4.5 g/dL (3.5-5.1); Alkaline Phosphatase 68 U/L (38-126); Anion Gap 10 mmol/L (8-16); Aspartate Amino Transferase 38 U/L (14-36); Bilirubin,Total 0.6 mg/dL (0.2-1.3); Blood Urea Nitrogen 13 mg/dL (7-17); Calcium 9.2 mg/dL (8.4-10.2); Carbon Dioxide 23 mmol/L (22-30); Chloride 105 mmol/L (98-107); Estimated CRCL calculation 42 ml/min; Estimated Glomerular Filt Rate 47; Glucose 101 mg/dL (65-110); Lipase 320 U/L (23-300); Potassium 3.8 mmol/L (3.4-5.0); Sodium 138 mmol/L (137-145)
[2023-06-11 17:23] LABS: Troponin I < 0.012 ng/mL (0.000-0.034)
[2023-06-11 17:51] VITALS: BP 115/84; PULSE 95; RESP 17; TEMP 36.1; O2SAT 98
--- NOTE | 2023-06-11 18:01 | ED.CHESTPAIN ---
HPI - Chest Pain General Chief Complaint: Chest Pain <Margy Whitt PA-C - Last Filed: 06/13/23 09:57> Stated Complaint: chest tightness <JENNIE Abreu Last Filed: 06/13/23 09:57> Time Seen by Provider: 06/11/23 21:28 <JENNIE Abreu Last Filed: 06/13/23 09:57> Source: patient <JENNIE Abreu Last Filed: 06/13/23 09:57> Mode of arrival: ambulatory <JENNIE Abreu Last Filed: 06/13/23 09:57> Limitations: no limitations <JENNIE Abreu Last Filed: 06/13/23 09:57> History of Present Illness HPI narrative: This is a 53 year old female that presents to the ER for chest tightness. Ongoing over the last couple of weeks. Reports she recently had COVID. Has had continued cough and chest discomfort. Denies shortness of breath. <Margy Whitt PA-C - Last Filed: 06/13/23 09:57> This is a 53 year old female that presents to the ER for chest tightness. Ongoing over the last couple of weeks. Reports she recently had COVID. Has had continued cough and chest discomfort. Denies shortness of breath. Reports chest tightness in R lower chest, has been constant over last few weeks. Denies SOB, TARANGO. Denies fevers. Denies N/V, abdominal pain. Feels like the chest tightness is related to acid reflux. She has not taken anything for acid reflux. She has not tried anything else for pain. <Melinda Mock PA-C - Last Filed: 06/12/23 01:15> Related Data Home Medications: Home Medications Medication Instructions Recorded Confirmed bupropion HCl 150 mg 24 hr tablet, 150 mg PO DAILY 04/22/20 12/31/22 extended release bupropion HCl 300 mg 24 hr tablet, 300 mg PO DAILY 04/22/20 12/31/22 extended release metoprolol succinate 100 mg 100 mg PO DAILY 04/22/20 01/17/23 tablet,extended release 24 hr (Toprol XL) metoprolol succinate 50 mg 50 mg PO DAILY 04/22/20 12/31/22 tablet,extended release 24 hr amlodipine 5 mg tablet 5 mg PO DAILY 12/31/22 12/31/22 lorazepam 0.5 mg tablet 0.5 mg PO TID PRN Anxiety 12/31/22 12/31/22 losartan 100 mg tablet 100 mg PO DAILY 12/31/22 12/31/22 <Margy Whitt PA-C - Last Filed: 06/13/23 09:57> Allergies/Adverse Reactions: Allergies Allergy/AdvReac Type Severity Reaction Status Date / Time erythromycin base Allergy Mild Unknown Verified 06/11/23 20:35 Sulfa (Sulfonamide Allergy Mild Unknown Verified 06/11/23 20:35 Antibiotics) <Margy Whitt PA-C - Last Filed: 06/13/23 09:57> Review of Systems Review of Systems: CONSTITUTIONAL: Denies fever CARDIOVASCULAR: Reports chest pain. Denies edema. RESPIRATORY: Reports cough. Denies dyspnea. <Margy Whitt PA-C - Last Filed: 06/13/23 09:57> All systems reviewed & are unremarkable except as noted in HPI and below <Margy Whitt PA-C - Last Filed: 06/13/23 09:57> [facility] Past Medical History Medical History: Medical History ADHD Alcohol use Asthma History of anxiety History of depression History of hypertension Migraines With left sided aura Scoliosis <Margy Whitt PA-C - Last Filed: 06/13/23 09:57> Surgical History Surgical History: Surgical History History of section History of hernia repair Hx of colonoscopy <Margy Whitt PA-C - Last Filed: 06/13/23 09:57> Family History Family History: Family History Grandparent Cerebrovascular accident <Margy Whitt PA-C - Last Filed: 06/13/23 09:57> Social History Social History: Social History Social History: The patient was adopted and only aware of her grandmother having a CVA. Smoking packs per day: 1 Smoking cigarettes per day: 20.0 Years smoked: 18 Smoking pack-years: 18.00
[2023-06-11 18:37] LABS: D Dimer 0.39 ug/mL (<0.48)
[2023-06-11 20:30] VITALS: BP 123/62; PULSE 82; RESP 14; O2SAT 99
[2023-06-11 21:41] LABS: Troponin I < 0.012 ng/mL (0.000-0.034)
[2023-06-11] MEDS: BELLADONNA ALK/PHENOB ELIX 10 ML, MAG HYDROX/ALUMINUM HYD/SIMETH 30 ML, LIDOCAINE HCL 2... PO (22:37)
[2023-06-12 00:20] VITALS: BP 127/72; PULSE 80; RESP 15; O2SAT 100
== END 2023-06-12 00:21 | disposition home or self-care (01) ==
PROVIDERS: Emergency Medicine; Physician Assistant; Emergency Provider Physician Assistant; PCP Family Medicine
DX: R07.89 Other chest pain (principal); K44.9 Diaphragmatic hernia without obstruction or gangrene; F90.9 Attention-deficit hyperactivity disorder, unspecified type; J45.909 Unspecified asthma, uncomplicated; F32.A Depression, unspecified
CPT/HCPCS: 36415; 71046; 74177; 80053; 83690; 84484; 85025; 85380; 85610; 85730; 93005; 99284; A9270; Q9967

== ENCOUNTER 2023-12-17 13:16 | Outpatient (CLI) | payer OTHER, SELFPAY ==
--- NOTE | ~2023-12-17 | MM_ITS ---
EXAMINATION: MM screening beto BI w larry HISTORY: Screening mammogram TECHNIQUE: Craniocaudal and mediolateral oblique 3-D tomosynthesis images were obtained and synthetic 2-D images were generated. CAD analysis was submitted and interpreted. COMPARISON: 11/15/2022 bilateral screening mammogram BREAST PARENCHYMAL COMPOSITION: The breasts are heterogeneously dense, which may obscure small masses . FINDINGS: There is focal asymmetry in the medial right breast in craniocaudad projection at mid depth . Diagnostic right mammogram is recommended, with ultrasound if required. Otherwise no suspicious mass, architectural distortion, malignant calcification, skin thickening or r etraction developing density of the breasts is noted. IMPRESSION: 1. Focal right mammographic asymmetry on CC view 2. Diagnostic right mammogram is recommended, ultrasound if required BI-RADS Category 0: Incomplete: Needs additional imaging evaluation. Reviewed, dictated and finalized at location A.
== END 2023-12-17 13:17 | disposition home or self-care (01) ==
LOC: CHSIMG 13:17
PROVIDERS: PCP Family Medicine; Visit Provider Obstetrics & Gynecology
DX: Z12.31 Encounter for screening mammogram for malignant neoplasm of breast (principal); R92.8 Other abnormal and inconclusive findings on diagnostic imaging of breast
CPT/HCPCS: 77063; 77067

== ENCOUNTER 2023-12-23 09:18 | Outpatient (CLI) | payer OTHER, SELFPAY ==
--- NOTE | 2023-12-23 09:36 | ECG_ITS ---
SEE SCANNED COPY FOR CONFIRMED REPORT MTDD
== END 2023-12-23 09:19 | disposition home or self-care (01) ==
LOC: ANHSURGERY 09:23
PROVIDERS: PCP Family Medicine; Visit Provider Obstetrics & Gynecology
DX: Z01.818 Encounter for other preprocedural examination (principal); R19.00 Intra-abdominal and pelvic swelling, mass and lump, unspecified site; Z86.79 Personal history of other diseases of the circulatory system
CPT/HCPCS: 36415; 86850; 86900; 86901; 93005

== ENCOUNTER 2023-12-25 01:14 | Day surgery (SDC) | payer OTHER, SELFPAY ==
[2023-12-18 11:36] VITALS: BMI 22.7
--- NOTE | 2023-12-18 11:45 | PC.NURSE ---
Report to the Outpatient Waiting Room, entrance under the green pavilion located off [facility], at time _0600_ on date _[id number]_. Planned Procedure Time: _0730_. Time changes happen often and if your time is changed the preop area will call you the afternoon before. - You and your visitor will be asked to self-screen and do not enter if you have any COVID symptoms. - A mask is optional within the hospital at this time. Patients may have clear liquids (water, carbonated beverages, clear teas, apple juice) until 3 hours prior to surgery with a maximum of 20 ounces. - No food from midnight until time of surgery Take the following medications with a SIP of water the morning of surgery: ___Metoprolol, Bupropion and Amlodipine DO NOT STOP ANY OF YOUR OTHER PRESCRIPTION MEDICATIONS PRIOR TO SURGERY ?EXCEPT THE FOLLOWING Medications to discontinue per physician Patient often forgets to take aspirin and is stopping it until after surgery. Date to take last dose Please no make-up, nail indonesian, hairspray, perfume, deodorant, or body powder the day of surgery. No jewelry (including any body piercings) or valuables the day of surgery, leave them at home. Please take a shower or bath the night before, or the morning of, surgery with an antibacterial soap. Wear comfortable, loose fitting clothing. - Jewelry must be removed prior to entering the operating room. Rings and piercings that are not removed may be cut off. - The hospital will not accept responsibility for valuables. - Please leave all valuables, including medications, at home the day of surgery. If you are going home after surgery, a licensed driver manager must drive you home. - NO public transportation without another adult if you receive anesthesia. - We recommend that an adult stay with you for 24 hours following discharge. - We also recommend that you do not drive, make important decision, drink alcoholic beverages, or take any drugs that were not prescribed by your health care provider for at least 24 hours after your discharge time. Follow any additional instructions given to you from your surgeon. If you or anyone in your household have experienced Covid symptoms in the past week, please notify your surgeon or the nurse liaison at the phone number below for possible testing. Telephone instructions given to _Daniela___and asked if any additional questions and then verbalized understanding. Patient advised to call surgeon office or pre surgery nurse liaison [phone] if any additional questions.
[2023-12-25] VITALS (8 sets, daily range): BP systolic 92–128; BP diastolic 60–80; PULSE 73–95; RESP 15–20; TEMP 36–37; O2SAT 96–100
[2023-12-25] MEDS: KETOROLAC 15 MG/ML VIAL (*BKC) IV PUSH (06:28)
[2023-12-25] MEDS: ACETAMINOPHEN 500 MG TABLET 1000 MG PO (06:28)
--- NOTE | 2023-12-25 07:15 | WPDHPUPDATE1 ---
History and Physical Update Update Date/Time: 12/25/23 07:15 History and Physical has been reviewed, including an updated exam of the patient. There are NO changes in the patient's condition. Risks, benefits, and alternatives have been discussed and questions answered. Patient agrees to proceed with procedure.
--- NOTE | 2023-12-25 07:16 | WPDANESEPPF ---
Anes - Initial Pre Proc Eval Procedure: Operation Date: 12/25/23 07:30 Proposed Procedures p Total Laparoscopic Hysterectomy with Bilateral Salpingo-oophorectomy - Germaine Ordonez MD Date/Time: 12/25/23 07:16 Surgeon: Germaine Ordonez MD Pre Op Diagnosis: Pelvic Mass Patient Data Age: 53 Gender: F Height: 1.6 m Weight: 58.9 kg Last Vital Signs Temp 96.8 F L 12/25/23 06:08 Pulse 89 12/25/23 06:08 Resp 18 12/25/23 06:08 BP 128/80 12/25/23 06:08 Pulse Ox 100 12/25/23 06:08 O2 Del Method Room Air 12/25/23 06:08 Allergies Allergy/AdvReac Type Severity Reaction Status Date / Time erythromycin base Allergy Mild Unknown Verified 12/25/23 06:53 Sulfa (Sulfonamide Allergy Mild Unknown Verified 12/25/23 06:53 Antibiotics) Home Medications Medication Instructions Recorded Confirmed Type bupropion HCl 150 mg 24 hr tablet, 150 mg PO DAILY 04/22/20 12/25/23 History extended release bupropion HCl 300 mg 24 hr tablet, 300 mg PO DAILY 04/22/20 12/25/23 History extended release metoprolol succinate 100 mg 100 mg PO DAILY 04/22/20 12/25/23 History tablet,extended release 24 hr (Toprol XL) metoprolol succinate 50 mg 50 mg PO DAILY 04/22/20 12/25/23 History tablet,extended release 24 hr aspirin 81 mg tablet,delayed 81 mg PO QAM #30 tabs 04/23/20 12/25/23 Rx release rosuvastatin 10 mg tablet (Crestor) 20 mg PO QAM #30 tabs 04/24/20 12/25/23 Rx amlodipine 5 mg tablet 5 mg PO DAILY 12/31/22 12/25/23 History lorazepam 0.5 mg tablet 0.5 mg PO TID PRN Anxiety 12/31/22 12/18/23 History losartan 100 mg tablet 100 mg PO DAILY 12/31/22 12/25/23 History omeprazole 10 mg capsule,delayed 10 mg PO DAILY #30 caps 06/11/23 12/25/23 Rx release estradiol 1 mg tablet 1 mg PO DAILY 12/18/23 12/25/23 History progesterone micronized 100 mg 100 mg PO DAILY 12/18/23 12/25/23 History capsule Patient hx anesthesia problems: none Family hx anesthesia problems: none Results Review: All pre-operative results and documents have been reviewed as part of the pre-operative evaluation. [facility] Past Medical History Medical History ADHD Alcohol use Asthma History of anxiety History of depression History of hypertension Migraines With left sided aura Scoliosis Surgical History Surgical History History of section History of hernia repair Hx of colonoscopy Family History Family History Grandparent Cerebrovascular accident Social History Social History Social History: The patient was adopted and only aware of her grandmother having a CVA. Smoking packs per day: 1 Smoking cigarettes per day: 20.0 Years smoked: 14 Smoking pack-years: 14.00 Smoking status: Former smoker Tobacco type: cigarettes Smoking end date: 12/18/03 Alcohol intake: current Drinks per week: 14 Alcohol use details: rarely Substance use: current Substance use type: marijuana Other substance usage details: Gummies a couple times a week. Last use: nightly Living arrangements: with family Occupation/Education: occupation Gender identity (if verbalized by the patient): Female Spiritual care concerns: No Anes - Eval Final PreProcedure Day of Procedure 12/25/23 07:16 Patient weight: normal Heart: regular rate and rhythm Lungs: clear to auscultation Airway: Mallampati scale class II Neurological: alert and oriented Last oral intake: >/= 8 hours ASA classification: III Emergent: no Anesthetic plan: proceed Anesthesia type and monitoring: general ETT and standard monitoring Results Review: All pre-operative results and documents have been reviewed as part of the pre-operative evaluation. Informed Consent: The patient's anes
--- NOTE | 2023-12-25 07:22 | PM.IMHP ---
H&P: HPI History of Present Illness Date/Time: 12/25/23 07:22 Chief Complaint: Pelvic mass Narrative: This patient is a 53-year-old female with a pelvic mass and strong family history of gynecologic cancer we agreed to perform total laparoscopic hysterectomy bilateral salpingo-oophorectomy she understands the procedure. It Has been explained to her in detail. for she understands the risks. She understands injuries may occur that could result in hospitalization, more surgery, and severe illness. She understands risk of hemorrhage infection. She denies any nausea, vomiting, fever, chills. She denies any chest pain or shortness of breath. Review of Systems Review of Systems: All systems reviewed & are unremarkable except as noted in HPI and below Constitutional: Constitutional: Denies chills, Denies fatigue, Denies fever(s) and Denies weakness Eyes: Eyes: Denies blurry vision, Denies change in vision, Denies loss of peripheral vision, Denies loss of vision, Denies other visual disturbances and Denies eye pain ENT: Denies vertigo, Denies dizziness, Denies hearing loss, Denies mouth pain, Denies nasal obstruction, Denies neck mass and Denies neck pain Cardiovascular: Cardiovascular: Denies chest pain, Denies diaphoresis, Denies syncope, Denies leg edema and Denies dyspnea Respiratory: Respiratory: Denies chest congestion, Denies cough, Denies hemoptysis, Denies dyspnea and Denies wheezing Gastrointestinal: Gastrointestinal: Denies abdominal pain, Denies constipation, Denies diarrhea, Denies nausea and Denies vomiting Genitourinary: Genitourinary: Denies hematuria, Denies change in libido, Denies nocturia, Denies genital lesions, Denies flank pain and Denies urinary urgency Musculoskeletal: Musculoskeletal: Denies abnormal gait, Denies back pain, Denies myalgias, Denies arthralgias, Denies joint swelling, Denies muscle weakness and Denies neck pain Integumentary/Breasts: Skin/Breast: Denies swelling, Denies breast pain, Denies breast mass, Denies dry skin, Denies nipple discharge, Denies unusual bruising and Denies jaundice Neurologic: Denies Neuro-related abnormal movements, Denies Abnormal speech present, Denies abnormal gait, Denies behavioral changes, Denies confusion, Denies vertigo, Denies dizziness, Denies syncope, Denies loss of vision, Denies memory loss, Denies convulsions and Denies weakness Psychiatric: Psychiatric: Denies abnormal sleep pattern, Denies behavioral changes, Denies change in libido, Denies confusion, Denies depression, Denies anhedonia and Denies memory loss Endocrine: Endocrine: Reports no additional endocrine complaints, Denies change in libido and Denies fatigue Hematologic/Lymphatic: Hematologic/Lymphatic: Reports no additional hematologic/lymphatic complaints Allergic/Immunologic: Allergic/Immunologic: Reports no additional allergic/immunologic complaints and Denies wheezing PMFSH Past Medical History Medical History ADHD Alcohol use Asthma History of anxiety History of depression History of hypertension Migraines With left sided aura Scoliosis Surgical History Surgical History History of section History of hernia repair Hx of colonoscopy Family History Family History Grandparent Cerebrovascular accident Social History Social History Social History: The patient was adopted and only aware of her grandmother having a CVA. Smoking packs per day: 1 Smoking cigarettes per day: 20.0 Years smoked: 14 Smoking pack-years: 14.00 Smoking status: Former smoker Tobacco type: cigarettes Smoking end date: 12/18/03 Alcohol intake: current Drinks per week: 14 Alcohol use details: rarely Substance use: current Substance use type
[2023-12-25] MEDS: ceFAZolin 2 GM/D5W 50 ML 2 GM/50 ML BAG IVPB (07:30)
[2023-12-25] MEDS: ceFAZolin SODIUM 1 GM VIAL (08:09)
[2023-12-25] MEDS: LACTATED RINGERS 1,000 ML 30 ML IV CONT ×2 (09:05)
[2023-12-25] MEDS: fentaNYL CITRATE INJ (*CRX) 100 MCG/2 ML VIAL 25 MCG IV PUSH ×5 (09:17→09:52)
[2023-12-25] MEDS: HYDROcodone/acetaminophen (*CRX) 10-325 MG TABLET 1 TAB PO ×4 (10:27→21:24)
[2023-12-25] MEDS: DEXTROSE 5%/0.45% SOD CHL 1,000 ML 125 ML IV CONT (10:27)
[2023-12-25] MEDS: DOCUSATE SODIUM 100 MG CAPSULE PO (10:27)
[2023-12-25] MEDS: SIMETHICONE 80 MG TAB.CHEW PO ×2 (10:28→16:37)
[2023-12-25] MEDS: DOCUSATE SODIUM 100 MG CAPSULE (10:28)
--- NOTE | 2023-12-25 11:22 | W.PM.PROC2 ---
Procedure Note - Detailed Date of Procedure 12/25/23 Pre-op Diagnosis Pelvic Mass Post-op Diagnosis Same Procedure Performed Total laparoscopic hysterectomy and bilateral salpingo-oophorectomy. Surgeon Germaine Ordonez MD Anesthesia General Indications Pelvic pain and mass Findings large dilated ovarian vein plexus right pelvis - leading to an surrounding the right over, otherwise normal-appearing uterus tubes and ovaries. Description of Procedure This patient was taken to the operating room. She was prepped and draped in the dorsal lithotomy position after induction of general anesthesia. The uterine manipulator and Sergye cup were placed. This was done with a speculum and tenaculum. The speculum was placed. The cervix was grasped with a tenaculum. The stay sutures were placed at 3 and 9:00 a.m.. The stay sutures of 0 Vicryl were brought through the appropriately sized Sergey cup. The tip of the SIOBHAN manipulator was placed in the intrauterine cavity. The cup was slid into place around the cervix and into the fornices. It was locked into place. The sutures were then wrapped around the handle and tied under tension. A 5 mm skin incision was made in the left upper quadrant the abdomen. A 5 mm trocar was inserted into the intrauterine cavity under direct visualization of the scope. Pneumoperitoneum was achieved. A left lower quadrant 11 mm incision was made with scalpel. An 11 mm trocar was inserted into the anterior abdominal cavity under direct visualization the scope. A 5 mm infraumbilical incision was made with a scalpel and a 5 mm trocar was inserted the intra-abdominal cavity under direct visualization of the scope. Bilateral ureteral lysis was performed. This was done from the pelvic brim down to the uterine artery. This was done with careful dissection using sharp and blunt dissection. The infundibulopelvic ligaments were isolated after identification of the ureters bilaterally. These infundibulopelvic ligaments were cauterized and transected with LigaSure cautery. The para ovarian tissue was cauterized and transected with LigaSure cautery bilaterally. Moving around the ovary into the broad ligament the tissue was cauterized transected with LigaSure cautery. The round ligaments were cauterized transected with LigaSure cautery this was all done in a bilateral fashion. In a stepwise fashion along the lateral aspects of the uterus the round ligament and broad ligaments were cauterized transected down to the level of the uterine arteries. A bladder flap was created in the bladder was moved distally to the end of the cervix and over the Sergey cup. The bilateral uterine arteries were cauterized and transected. Colpotomy was then performed. In a circumferential fashion the vagina was transected using unipolar cautery. The incision was made down on the Sergey cup. The uterus, cervix, fallopian tubes and ovaries were taken out through the vagina. A pneumo occluder was placed in the vagina. The vaginal cuff was closed with a 0 V lock suture in a running fashion. The pelvis was irrigated with copious amounts antibiotic irrigation. The ureters were again examined and found to be intact and flowing freely under the uterine arteries into the bladder. Cystoscopy was performed. The cystoscope was inserted in the ureteral orifices were examined. methylene blue had been previously given was seen to egress from both ureteral orifices. The bladder was intact . The cystoscope was withdrawn. The vagina was irrigated with Betadine solution after removal of the Pneumo occluder. The patient was taken to recovery room. She was stable condition. Sponge lap and needle counts were correct x2. Drains Yes Packing No Pathology Yes Complications No immediate complications Condition Stable Disposition Floor
[2023-12-25] MEDS: KETOROLAC 30 MG/ML VIAL (*BKC) IV PUSH ×2 (12:15→18:03)
[2023-12-26] MEDS: KETOROLAC 30 MG/ML VIAL (*BKC) IV PUSH (04:45)
[2023-12-26] MEDS: HYDROcodone/acetaminophen (*CRX) 10-325 MG TABLET 1 TAB PO ×2 (04:45→10:57)
[2023-12-26] MEDS: SIMETHICONE 80 MG TAB.CHEW PO ×2 (04:45→10:57)
[2023-12-26 05:05] VITALS: BP 112/75; PULSE 86; RESP 18; TEMP 36.8; O2SAT 96
[2023-12-26 08:30] VITALS: BP 103/75; PULSE 77; RESP 18; TEMP 37.2; O2SAT 99
[2023-12-26] MEDS: PANTOPRAZOLE SOD SESQUIHYDRATE 20 MG TAB PO (09:20)
[2023-12-26] MEDS: amLODIPine BESYLATE 5 MG TABLET PO (09:21)
[2023-12-26] MEDS: METOPROLOL SUCCINATE EXT REL 100 MG TABCR PO (09:21)
[2023-12-26] MEDS: ROSUVASTATIN 20 MG TABLET PO (09:21)
[2023-12-26] MEDS: ASPIRIN 81 MG ENTERIC TABLET PO (09:21)
[2023-12-26] MEDS: buPROPion HCL XL (24 HR) 150 MG TABCR 450 MG PO (09:22)
[2023-12-26] MEDS: METOPROLOL SUCCINATE EXT REL 50 MG TABCR PO (09:22)
[2023-12-26] MEDS: LOSARTAN POTASSIUM 100 MG TABLET PO (09:25)
[2023-12-26] MEDS: estradioL 1 MG TABLET PO (09:25)
[2023-12-26] MEDS: DOCUSATE SODIUM 100 MG CAPSULE PO (09:28)
[2023-12-26] MEDS: IBUPROFEN 600 MG TABLET PO (10:56)
--- NOTE | 2023-12-26 12:33 | WPDANESPN ---
Anes - Prog Note Post-Op Date/Time: 12/26/23 12:33 Cardiovascular status: normal Respiratory status: normal Airway patency: baseline Mental status: baseline Post-Op hydration status: normal Vital Signs: Last Vital Signs Temp 98.9 F 12/26/23 08:30 Pulse 77 12/26/23 08:30 Resp 18 12/26/23 08:30 BP 103/75 12/26/23 08:30 Pulse Ox 99 12/26/23 08:30 O2 Del Method Room Air 12/25/23 15:22 O2 Flow Rate 8 12/25/23 09:05 Pain Score (VAS): 0/10 Post-procedural complaints: none Patient Feedback: Patient satisfied with anesthetic care.
--- NOTE | 2023-12-26 13:02 | PM.GYNPNOP ---
RETORT PRE COOKER - A/P Postoperative Procedures: Procedures Operation Date: 12/25/23 07:30 Actual Procedure Side Surgeon p Total Laparoscopic Hysterectomy with Bilateral Salpingo-oophorectomy Raul Ordonez MD Postoperative day: 1 Postoperative status: doing well Postoperative plan: see orders Time Spent With Patient Time: Total time spent is greater than 50% in coordination of care (as documented) at patient's floor/unit and/or counseling patient: Time with patient: less than 15 minutes RETORT PRE COOKER- PN:Subj Post-Op Subjective Date/time seen: 12/26/23 13:02 Subjective: patient reports feeling better, patient has no complaints and pain is well controlled Exam Const: General: healthy appearing, comfortable and no acute distress Resp: Auscultation: clear to auscultation bilaterally, no rales, no rhonchi and no wheezes Cardio: Rate: regular rate Heart sounds: no click, no murmurs and no rubs GI: Inspection: non-distended Auscultation: normal bowel sounds Extrem: General: normal to inspection, no pedal edema and no calf tenderness RETORT PRE COOKER - PN: Obj Data Vital Signs Vital Signs: Vital Signs - 24 hr 12/25/23 15:22 12/25/23 15:22 12/25/23 21:25 Temperature 98.6 F 97.9 F Pulse Rate 89 95 Respiratory Rate 16 20 Blood Pressure 98/68 L 95/65 L Pulse Oximetry 96 98 Oxygen Delivery Room Air 12/26/23 05:05 12/26/23 08:30 Temperature 98.2 F 98.9 F Pulse Rate 86 77 Respiratory Rate 18 18 Blood Pressure 112/75 103/75 Pulse Oximetry 96 99 Oxygen Delivery Intake/Output Intake/Output: Intake & Output 12/23/23 12/24/23 12/25/23 12/26/23 23:59 23:59 23:59 23:59 Intake Total 1200 Output Total 300 Balance 900 Meds/Results Medications: Active Medications Generic Name Dose Route Start Last Admin Trade Name Freq PRN Reason Stop Dose Admin Hydrocodone Bitart/Acetaminophen 1 tab 12/25/23 10:03 Hydrocodone/Acetaminophen (*Crx) 5-325 Mg Tablet PO Q3H PRN Pain Rated 5 or Less Hydrocodone Bitart/Acetaminophen 1 tab 12/25/23 10:03 12/26/23 10:57 Hydrocodone/Acetaminophen (*Crx) 10-325 Mg Tablet PO 1 tab Q3H PRN Administration Pain Rated 6 or Greater Amlodipine Besylate 5 mg 12/26/23 09:00 12/26/23 09:21 Amlodipine Besylate 5 Mg Tablet PO 5 mg DAILY LAUREN Administration Aspirin 81 mg 12/26/23 09:00 12/26/23 09:21 Aspirin 81 Mg Enteric Tablet PO 81 mg QAM LAUREN Administration Bupropion HCl 450 mg 12/26/23 09:00 12/26/23 09:22 Bupropion Hcl Xl (24 Hr) 150 Mg Tabcr PO 450 mg DAILY LAUREN Administration Docusate Sodium 100 mg 12/25/23 11:13 12/26/23 09:28 Docusate Sodium 100 Mg Capsule PO 100 mg Q12H PRN Administration Constipation Estradiol 1 mg 12/26/23 09:00 12/26/23 09:25 Estradiol 1 Mg Tablet PO 1 mg DAILY LAUREN Administration Dextrose/Sodium Chloride 1,000 mls @ 125 mls/hr 12/25/23 10:05 12/26/23 10:07 Dextrose 5% Sodium Chloride 0.45% IV CONT Not Given .Q8H LAUREN Ibuprofen 600 mg 12/25/23 10:03 12/26/23 10:56 Ibuprofen 600 Mg Tablet PO 600 mg Q6H PRN Administration Cramping Ketorolac Tromethamine 30 mg 12/25/23 10:03 12/26/23 04:45 Ketorolac 30 Mg/Ml Vial (*Bkc) IV PUSH 12/30/23 10:02 30 mg Q6H PRN Administration Pain Rated 4-6 Lorazepam 0.5 mg 12/25/23 10:03 Lorazepam (*Crx) 0.5 Mg Tablet PO TID PRN Anxiety Losartan Potassium 100 mg 12/26/23 09:00 12/26/23 09:25 Losartan Potassium 100 Mg Tablet PO 100 mg DAILY LAUREN Administration Metoprolol Succinate 50 mg 12/26/23 09:00 12/26/23 09:22 Metoprolol Succinate Ext Rel 50 Mg Tabcr PO 50 mg DAILY LAUREN Administration Metoprolol Succinate 100 mg 12/26/23 09:00 12/26/23 09:21 Metoprolol Succinate Ext Rel 100 Mg Tabcr PO 100 mg DAILY LAUREN Administration Naloxone HCl 0.1 mg 12/25/23 10:03 Naloxone Hcl 0.4 Mg/Ml Vial IV PUSH Q2M PRN Respiratory rate less than 10
--- NOTE | 2023-12-26 13:05 | WPDANESPN ---
Anes - Prog Note Post-Op Date/Time: 12/26/23 13:05 Cardiovascular status: normal Respiratory status: normal Airway patency: baseline Mental status: baseline Post-Op hydration status: normal Vital Signs: Last Vital Signs Temp 37.2 C 12/26/23 08:30 Pulse 77 12/26/23 08:30 Resp 18 12/26/23 08:30 BP 103/75 12/26/23 08:30 Pulse Ox 99 12/26/23 08:30 O2 Del Method Room Air 12/25/23 15:22 O2 Flow Rate 8 12/25/23 09:05 Pain Score (VAS): 4/10 Post-procedural complaints: none Patient Feedback: Patient satisfied with anesthetic care.
== END 2023-12-26 14:52 | disposition home or self-care (01) ==
LOC: ANHSURGERY 06:00 → ANHOB2 10:06
PROVIDERS: PCP Family Medicine; Visit Provider Obstetrics & Gynecology
PROC: 0UT9FZZ Resection of Uterus, Via Natural or Artificial Opening With Percutaneous Endoscopic Assistance (ICD-10-PCS; CPT 58571; principal; 2023-12-25 07:30)
DX: N84.0 Polyp of corpus uteri (principal); N80.03 Adenomyosis of the uterus; N83.02 Follicular cyst of left ovary; N83.291 Other ovarian cyst, right side; I10 Essential (primary) hypertension; F90.9 Attention-deficit hyperactivity disorder, unspecified type; J45.909 Unspecified asthma, uncomplicated; F41.9 Anxiety disorder, unspecified; F32.A Depression, unspecified; F12.90 Cannabis use, unspecified, uncomplicated; M41.9 Scoliosis, unspecified; Z79.82 Long term (current) use of aspirin; Z98.890 Other specified postprocedural states; Z87.891 Personal history of nicotine dependence; Z82.49 Family history of ischemic heart disease and other diseases of the circulatory system; Z80.49 Family history of malignant neoplasm of other genital organs
CPT/HCPCS: 58571; 74018; 88307; 99199; 99283; A9270; J0690; J1100; J1170; J1885; J2250; J2371; J2405; J2704; J3010; J7120; Q9968

== ENCOUNTER 2023-12-26 20:06 | Emergency (ER) | payer OTHER, SELFPAY ==
--- NOTE | ~2023-12-26 | XR_ITS ---
EXAMINATION: XR abdomen/kub 1V DATE: 12/26/2023 20:52 INDICATION: Assess for foreign body TECHNIQUE: A supine view of the abdomen on 2 radiographs was obtained. COMPARISON: CT dated 06/11/2023 FINDINGS: Normal amount of gas and stool scattered throughout the colon. No dilated loops of gas-filled bowel t o suggest obstruction. Ringlike anastomotic suture line in the left pelvis. Additional small linear s uture line in the left lower quadrant slightly to the left of L4-L5. No other radiopaque foreign bodi es. 25 degrees lumbar levoscoliosis with severe spondylosis. IMPRESSION: 1. Suture lines in the left pelvis and left lower quadrant. No other radiopaque foreign bodies. Reviewed, dictated and finalized at location A.
[2023-12-26 20:12] VITALS: BP 93/40; PULSE 88; RESP 18; TEMP 36.1; O2SAT 99
--- NOTE | 2023-12-26 21:30 | ED.GENADULT ---
HPI - General Adult General Chief complaint: Skin/Abscess/Foreign Body Stated complaint: foreign body Time Seen by Provider: 12/26/23 21:18 Source: patient Mode of arrival: ambulatory History of Present Illness HPI narrative: 53-year-old female. Who had hysterectomy yesterday. At a periumbilical wound that was closed with glue. Put in her belly piercing in thinks she might have lost the piercing inside of the wound. No pain. Related Data Home Medications Medication Instructions Recorded Confirmed bupropion HCl 150 mg 24 hr tablet, 150 mg PO DAILY 04/22/20 12/25/23 extended release bupropion HCl 300 mg 24 hr tablet, 300 mg PO DAILY 04/22/20 12/25/23 extended release metoprolol succinate 100 mg 100 mg PO DAILY 04/22/20 12/25/23 tablet,extended release 24 hr (Toprol XL) metoprolol succinate 50 mg 50 mg PO DAILY 04/22/20 12/25/23 tablet,extended release 24 hr amlodipine 5 mg tablet 5 mg PO DAILY 12/31/22 12/25/23 lorazepam 0.5 mg tablet 0.5 mg PO TID PRN Anxiety 12/31/22 12/18/23 losartan 100 mg tablet 100 mg PO DAILY 12/31/22 12/25/23 estradiol 1 mg tablet 1 mg PO DAILY 12/18/23 12/25/23 progesterone micronized 100 mg 100 mg PO DAILY 12/18/23 12/25/23 capsule Allergies Allergy/AdvReac Type Severity Reaction Status Date / Time erythromycin base Allergy Mild Unknown Verified 12/25/23 06:53 Sulfa (Sulfonamide Allergy Mild Unknown Verified 12/25/23 06:53 Antibiotics) Review of Systems Review of Systems: All systems reviewed & are unremarkable except as noted in HPI and below PMFSH Past Medical History Medical History ADHD Alcohol use Asthma History of anxiety History of depression History of hypertension Migraines With left sided aura Scoliosis Surgical History Surgical History History of section History of hernia repair Hx of colonoscopy Family History Family History Grandparent Cerebrovascular accident Social History Social History Social History: The patient was adopted and only aware of her grandmother having a CVA. Smoking packs per day: 1 Smoking cigarettes per day: 20.0 Years smoked: 14 Smoking pack-years: 14.00 Smoking status: Former smoker Tobacco type: cigarettes Smoking end date: 12/18/03 Alcohol intake: current Drinks per week: 14 Alcohol use details: rarely Substance use: current Substance use type: marijuana Other substance usage details: Gummies a couple times a week. Last use: nightly Living arrangements: with family Occupation/Education: occupation Gender identity (if verbalized by the patient): Female Spiritual care concerns: No Exam Narrative: Constitutional: Generally well appearing, no acute distress Head: Atraumatic, no deformities. Eyes: Pupils equal, round, and reactive to light. Neck: Supple, no tracheal deviation, no JVD. ENMT: Mucous membranes moist Cardiovascular: S1, S2 auscultated. No murmurs, rubs, or gallops. No S3/S4. Normal Distal pulses. No peripheral edema. Respiratory: Lung sounds equal. No wheezes, rales, or rhonchi. Gastrointestinal: Abdomen was soft, nondistended Musculoskeletal: Normal muscle tone and bulk. No obvious deformities over extremities. Skin: No rashes. Abdominal wounds from surgery are closed, glued, well-appearing. No visible foreign body Neurological: Strength 5/5 in extremities. Distal sensation intact. Mental Status: Awake, alert and oriented x3. Follows commands Course Vital Signs Vital signs: Vital Signs Temperature 36.1 C L 12/26/23 20:12 Pulse Rate 88 12/26/23 20:12 Respiratory Rate 18 12/26/23 20:12 Blood Pressure 93/40 L 12/26/23 20:12 Pulse Oximetry 99 12/26/23 20:12 Oxygen Delivery Room Air 12/26/23 20:
== END 2023-12-26 21:43 | disposition home or self-care (01) ==
PROVIDERS: Emergency Provider Emergency Medicine; PCP Family Medicine
DX: G89.18 Other acute postprocedural pain (principal); Z90.710 Acquired absence of both cervix and uterus; I10 Essential (primary) hypertension; F90.9 Attention-deficit hyperactivity disorder, unspecified type; F41.9 Anxiety disorder, unspecified; F32.A Depression, unspecified; Z87.891 Personal history of nicotine dependence
CPT/HCPCS: 74018; 99283

== ENCOUNTER 2024-01-02 08:29 | Outpatient (CLI) | payer OTHER, SELFPAY ==
--- NOTE | ~2024-01-02 | MMUS_ITS ---
EXAMINATION: MM diagnostic beto RT w larry, US breast RT complete HISTORY: Focal asymmetry reported in the medial right breast at mid depth on December 17, 2023 screening mammogram TECHNIQUE: Additional 3-D tomosynthesis images of the right breast were performed and synthetic 2-D i mages were generated. CAD analysis was submitted and interpreted. High resolution complete right melany st ultrasound examination including all 4 quadrants and subareolar area was performed. COMPARISON: December 17, 2023 bilateral screening mammogram FINDINGS: MAMMOGRAPHIC FINDINGS: No suspicious mass or architectural distortion, malignant constipation, skin thickening or retraction is evident. The area in question along the medial aspect of the breast at mid depth appears to be composite shado wing of fibroglandular tissue. The heterogeneously dense fibroglandular stroma may obscure masses. Complete rest ultrasound examinat ion was performed. ULTRASOUND: No suspicious mass or shadowing, cyst or other significant sonographic normality is noted. IMPRESSION: 1. No evidence of malignancy 2. Routine annual mammographic screening is recommended. BI-RADS Category 1: Negative Reviewed, dictated and finalized at location C. IMPRESSION: 1. No evidence of malignancy 2. Routine annual mammographic screening is recommended. BI-RADS Category 1: Negative
== END 2024-01-02 08:30 | disposition home or self-care (01) ==
LOC: CHSIMG 08:31
PROVIDERS: PCP Family Medicine; Visit Provider Obstetrics & Gynecology
DX: R92.8 Other abnormal and inconclusive findings on diagnostic imaging of breast (principal)
CPT/HCPCS: 76641; 77061; 77065; G0279

== ENCOUNTER 2025-01-05 16:10 | Outpatient (CLI) | payer OTHER, SELFPAY ==
--- NOTE | ~2025-01-05 | MM_ITS ---
EXAMINATION: MM screening beto BI w larry HISTORY: Screening TECHNIQUE: Craniocaudal and mediolateral oblique 3-D tomosynthesis images were obtained and synthetic 2-D images were generated. CAD analysis was submitted and interpreted. COMPARISON: Comparison to multiple prior studies sequentially, with oldest reviewed study dated 11/15. BREAST PARENCHYMAL COMPOSITION: Dense: The breasts are heterogeneously dense, which may obscure small masses FINDINGS: There are multiple developing masses in the medial aspect of the right breast seen on CC vi ew only, obscured by dense fibroglandular tissue on MLO view. There are focal masses laterally in the left breast which are obscured by fibroglandular tissue on MLO view. IMPRESSION: 1. New bilateral breast masses. 2. Additional mammographic views and possible breast ultrasound are recommended. BI-RADS Category 0: Incomplete: Needs additional imaging evaluation. Reviewed, dictated and finalized at location B. IMPRESSION: 1. New bilateral breast masses. 2. Additional mammographic views and possible breast ultrasound are recommended . BI-RADS Category 0: Incomplete: Needs additional imaging evaluation.
--- OUTSIDE RECORDS SUMMARY | 2025-01-05 16:17 | XMS_ITS | Referral Summary ---
Author Organization [facility] [address] Address [address] [place] [address] Care Team Providers Care Television Newscast Director Name Role Phone Maria Luz Lo MD Primary Care Provider + Allergies Active Allergy Reactions Criticality Noted Date Comments Azithromycin Rash Medium 05/04/2020 Erythromycin Unknown 05/12/2020 Sulfa (Sulfonamide Antibiotics) Rash Medium 04/19 Medications aspirin 81 mg enteric coated tablet Take 81 mg by mouth every morning 0 Active buPROPion XL (WELLBUTRIN XL) 150 mg 24 hr tablet TAKE 1 TABLET EVERY MORNING WITH 300 MG TAB 0 Active metoprolol XL (TOPROL-XL) 100 mg 24 hr tablet 0 Active metoprolol XL (TOPROL-XL) 50 mg extended release tablet 0 Active buPROPion XL (WELLBUTRIN XL) 300 mg 24 hr tablet TAKE 1 TABLET DAILY WITH 150 MG TAB 0 Active omeprazole (PriLOSEC) 20 mg capsule Take by mouth daily 0 Active rosuvastatin (CRESTOR) 20 mg tablet Take 20 mg by mouth daily 0 Active nitroglycerin (NITROSTAT) 0.4 mg SL tablet PLEASE SEE ATTACHED FOR DETAILED DIRECTIONS 0 Active LORazepam (ATIVAN) 0.5 mg tablet TAKE 1 TABLET BY MOUTH 3 TIMES A DAY NEEDED FOR STRESS 0 Active albuterol HFA (PROVENTIL HFA,VENTOLIN HFA,PROAIR HFA) 90 mcg/actuation inhaler Inhale 2 puffs every 6 (six) hours as needed for wheezing Active losartan (COZAAR) 50 mg tabletIndications :Essential hypertension Take 1 tablet (50 mg total) by mouth daily 30 tablet 11 0 Active Active Problems No known active problems Social History Tobacco Use Types Packs/Day Years Used Date Smoking Tobacco: Never Alcohol Use Standard Drinks/Week Comments Yes 20 (1 standard drink = 0.6 oz pu re alcohol) Comments Unknown Sex and Gender Information Value Date Recorded Sex Assigned at Not on file Legal 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 Gender Identity Not on file Sexual Orientation Not on file Last Filed Vital Signs Vital Sign Reading Time Taken Comments Blood Pressure 110/88 05/12/2020 2:02 PM CDT Pulse 96 05/12/2020 2:02 PM CDT Temperature - - Respiratory Rate - - Oxygen Saturation 97% 05/12/2020 2:02 PM CDT Inhaled Oxygen Concentration - - Weight 67.6 kg (149 lb) 05/12/2020 2:02 PM CDT Height 164.1 cm (5' 4.6 ) 05/12/2020 2:02 PM CDT Body Mass Index 25.1 05/12/2020 2:02 PM CDT Plan of Treatment Not on file Insurance ([employer]) [id number] Care Teams Television Newscast Director Relationship Specialty Start Date End Date Maria Luz Lo MD [address] [place] [address] [place] [id number] PCP - General Family Medicine 04/22/20
--- OUTSIDE RECORDS SUMMARY | 2025-01-05 16:17 | XMS_ITS | Data Portability ---
Author Organization [facility], Main Office Address [address] [place] [address] Assessment No assessment recorded. Plan of Treatment Reminders Order Date Submit Date Provider Last Modified By Organization Details Last Modified Time Details Appointments Follow Up 2024 10:15A Austin Moreland NP Not available Not available Not available Follow Up 2024 10:15A Austin Moreland NP Not available Not available Not available Lab drug of abuse panel, urine 2024 025 [facility] (Lab), [address] [place], [address], 12/03/2024 08:56:50 drug of abuse panel, urine 2023 024 [email or web address] [facility] (Lab), [address] [place], [address], 05/19/2024 08:13:47 vitami n D, 1,25-d ihydro xy, serum 2023 024 JESUS [facility] (Lab), [address] [place], [address], 05/18/2024 12:22:23 TSH, serum or plasma 2023 024 [id number] [facility] (Lab), [address] [place], [address], 05/19/2024 08:13:46 glycoh emoglo bin, total, blood 2023 024 [id number] [facility] (Lab), [address] [place], [address], 05/19/2024 08:13:46 CMP, serum or plasma 2023 024 [facility] (Lab), [address] [place], [address], 05/12/2024 23:37:10 hepati c functi on panel, serum 2023 024 [id number] [facility] (Lab), [address] [place], [address], 05/19/2024 08:13:47 CBC w/ auto diff 2023 024 [email or web address] [facility] (Lab), [address] [place], [address], 05/19/2024 08:13:46 lipid panel, serum [id number] [place] [address] (Lab), [address] [place], [address], 05/19/2024 08:13:46 Referral None record ed. Procedures None record ed. Surgeries None record ed. Imaging MAMMO, screen ing, digita l, bilate ral [facility]24 [email or web address] [address] [place], [address], 11/26/2024 10:20:26 Medication Orders methyl predni solone 4 mg tablet s in a dose pack 2024 025 [facility]/Pharmacy #[id number], [address] [place], [address], 11/26/2024 09:59:37 Addera ll 10 mg tablet 2024 025 [facility]/Pharmacy #2510, [address] [place] [address], [address], 11/26/2024 09:59:37 Medrol (Andreas) 4 mg tablet s in a dose pack 2023 024 [email or web address] [facility]/Pharmacy #2510, [address] [place] [address], [id number], 11/26/2024 09:47:06 loraze mckenna 0.5 mg tablet 2023 024 [facility]/Pharmacy #2510, [address] [place] [address], [id number], 08/06/2024 11:07:15 buprop ion HCl XL 150 mg 24 hr tablet , extend ed releas e 2023 024 [facility]/Pharmacy #2510, [address] [place] [address], [address], 08/06/2024 11:07:11 buprop ion HCl XL 300 mg 24 hr tablet , extend ed releas e 2023 024 [facility]/Pharmacy #2510, [address] [place] [address], [address], 08/06/2024 11:07:13 Medrol (Andreas) 4 mg tablet s in a dose pack 2023 024 [facility]/Pharmacy #2510, [address] [place] [address], [address], 11/26/2024 09:20:06 rosuva statin 20 mg tablet 2023 024 [facility]/Pharmacy #2510, [address] [place] [address], [address], 05/12/2024 11:17:37 cyclob enzapr ine 10 mg tablet 2023 024 [facility]/Pharmacy #2510, [address] [place] [address], [id number], 11/26/2024 09:19:49 omepra zole 20 mg capsul e,elif yed releas e 2023 Ray zamudio [facility][id number], [address] [place], [address], 11/26/2024 09:20:59 Patient TargetsNo targets recorded. Patient InstructionsNo instructions recorded. Reason for Referral None Reported. Results Created Date Observation Date Name Description Value Unit Range Abnormal Flag Note LastModifiedBy Organization Detail LastModifiedTime 06/11/2006/11/2023 XR, chest , 2 view No observ ation record ed. [address], [address], 06/12/2023 07:47:51 06/12/2006/11/2023 CT, abdom en + pelvi s, w/ contr ast No observ ation record ed. [address] [address], [place], [address], 06/12/2023 07:39:03 12/17/19 24 12/17/2023 MAMMO , scree lakshmi, digit al, bilat eral No observ ation record ed. [address] [place], [address], 01/02/2024 15:10:53 12/26/19 24 12/26/2023 XR, abdom en No observ ation record ed. [address], [address], 01/02/2024 15:11:17 01/02/20 24 01/02/2024 MAMMO , diagn ostic , unila teral No observ ation record ed. [address] [place], [address], 01/02/2024 15:11:41 07/03/20 24 07/03/2024 exerc ise stres s test No observ ation record ed. [email or web address] [facility] [address], [place], [address], 07/08/2024 22:16:43 07/09/20 24 07/09/2024 US, echoc ardio gram No observ ation record ed. [email or web address] [facility] [address], [place], [address], 07/10/2024 12:45:13 07/09/20 24 07/09/2024 US, duple x, carot id arter y No observ ation record ed. [email or web address] [facility] [address], [place], [address], 07/10/2024 12:45:44 08/31/19 25 08/31/2024 home sleep study No observ ation record ed. [email or web address] [facility] [address], [place], [address], 09/01/2024 14:37:15 09/14/19 25 09/14/2024 exerc ise stres s test No observ ation record ed. [email or web address] [facility] [address], [place], [address], 09/14/2024 21:33:14 Result Notes None recorded. Problems Name Problem SNOMED Code Status Onset Date Resolution Date Notes Provider Name and Address Organization Details Recorded Time Adult health examination Active 2022 Maria Luz Lo MD [address] [facility], [address] [address], [place], [address] , [place] - [facility] [employer] 3 12:07:54 Abnormal weight gain 807736860 Active Not Available [facility] 3 02:55:16 Idiopathic scoliosis 416585425 Active Not Available [employer] 3 02:55:16 Abdominal pain 62100147 Active Not Available [employer] 3 02:55:16 Sciatica 67155791 Active Not Available [facility] 3 02:55:16 Essential hypertension 62104306 Active Not Available [facility] 3 02:55:17 Allergic rhinitis 60439786 Active Not Available [facility] 3 02:55:17 Chest pain 21506336 Active 2022 Maria Luz Lo MD [address], [address], [place], [address] , [place] [facility] [place] [facility] 3 11:08:29 Neck pain 53874890 Active 2022 Maria Luz Lo MD [address], [address], [place], [address] , [place] [facility] [place] [facility] 3 11:09:44 Hiatal hernia 61700890 Active 2022 Maria Luz Lo MD [address], [address], [place], [address] , [place] [facility] 3 12:16:53 Anxiety 79565337 Active 2022 Maria Luz Lo MD [address], [address], [place], [address] , [employer] [place] [facility] [employer] [facility] 3 11:57:12 COVID-19 334959889 Active 2022 Maria Luz Lo MD [address], [address], [place], [address] , [place] [facility] [place] [facility] 3 14:19:19 Sciatica 93911833 Active 2023 DHARMESH Ku [address], [address], [place], [address] , [place] [facility] 4 11:12:30 Gastroesophag eal reflux disease without esophagitis 014312452 Active 2023 DHARMESH Ku [address], [address], [place], [address] , [place] [facility] 4 11:14:39 Attention deficit hyperactivity disorder 805983901 Active 2024 DHARMESH Ku [address] [facility], [address], [place], [address] , [facility] [employer] [facility] 09:56:56 Problem Notes None recorded. Procedures Surgical History Date Name Laterality Status Provider Name and Address Organization Details Recorded Time 3 EGD completed Garima Riley LPN [place] [employer] [facility] 01/17/2023 10:24:34 3 colonoscopy completed Garima Riley LPN [facility] 01/17/2023 10:25:21 Hysterectomy completed Merna Garcia MA [facility] [employer] [facility] 11/26/2024 09:24:53 Imaging Results Imaging Date Name Status LastModified by Organization Details LastModified Time 06/11/2023 XR, chest, 2 view completed [address], [address], 06/12/2023 07:47:51 06/11/2023 CT, abdomen + pelvis, w/ contrast completed [address], [address], 06/12/2023 07:39:03 12/17/2023 MAMMO, screening, digital, bilateral completed [address] [place], [address], 01/02/2024 15:10:53 12/26/2023 XR, abdomen completed [address], [address], 01/02/2024 15:11:17 01/02/2024 MAMMO, diagnostic, unilateral completed [address] [place], [address], 01/02/2024 15:11:41 07/03/2024 exercise stress test completed [address] [facility] [address], [place], [address], 07/08/2024 22:16:43 07/09/2024 US, echocardiogram completed [email or web address] [facility] [address], [place], [address], 07/10/2024 12:45:13 07/09/2024 US, duplex, carotid artery completed [email or web address] [facility] [address], [place], [address], 07/10/2024 12:45:44 08/31/2024 home sleep study completed [email or web address] [facility] [address], [place], [address], 09/01/2024 14:37:15 09/14/2024 exercise stress test completed [email or web address] [facility] [address], [place], [address], 09/14/2024 21:33:14 Procedure Notes None recorded. Medical Equipment None Reported. Allergies Allergen ID Allergen Name Allergen Category Reaction Reaction Severity Criticality Documentation Date Start Date Code Code System Note Provider Name and Address Organization Details Recorded Time 4843 Substance with sulfonami de structure and antibacte rial mechanism of action (substanc e) medicatio n hives Not available Not available 10/17/2022 18094 8003 SNOMED Not Available [facility] 3 03:04:06 4844 erythromy gloria medicatio n hives Not available Not available 10/17/2022 4053 RxNorm Not Available [facility] 3 03:04:06 Medications Name Sig Start Date Stop Date Status Note LastModified by Organization Details LastModified Time losartan 50 mg tablet TAKE 1 TABLET BY MOUTH EVERY DAY 08/15 completed Not Available Not Available Not Available cyclobenz aprine 10 mg tablet TAKE 1 TABLET BY MOUTH THREE TIMES A DAY 11/26 completed Not Available Not Available Not Available dicloxaci llin 500 mg capsule 11/26 completed Not Available Not Available Not Available bupropion HCl SR 150 mg tablet,12 hr sustained -release TAKE 1 TABLET BY MOUTH TWICE A DAY active Not Available Not Available No t Available promethaz ine-DM 6.25 mg-15 mg/5 mL oral syrup 04/27 completed Not Available Not Available Not Available clonidine HCl 0.1 mg tablet Take 1 tablet 3 times a day by oral route as needed for 10 days. 05/12 completed Not Available Not Available Not Available trazodone 50 mg tablet TAKE 1 TABLET BY MOUTH AT BEDTIME 11/26 completed Not Available Not Available Not Available cetirizin e 10 mg tablet TAKE 1 TABLET BY MOUTH EVERY DAY 04/27 completed Not Available Not Available Not Available tizanidin e 4 mg tablet Take 1 tablet 3 times a day by oral route as needed. active Not Available Not Available No t Available metoprolo l succinate ER 50 mg tablet,ex tended release 24 hr TAKE 1 TABLET BY MOUTH EVERY DAY ALONG WITH THE 100 MG TABLET 11/26 completed Not Available Not Available Not Available chlorzoxa zone 500 mg tablet TAKE 1 TABLET BY MOUTH 4 TIMES A DAY UNTIL FINISHED 04/27 completed Not Available Not Available Not Available valacyclo vir 1 gram tablet TAKE 1 TABLET BY MOUTH EVERY DAY active Not Available Not Available No t Available hydrocodo ne 5 mg-acetam inophen 325 mg tablet Take 1 tablet every 6 hours by oral route as needed. 05/12 completed Not Available Not Available Not Available prednison e 20 mg tablet TAKE 2 TABLETS BY MOUTH EVERY DAY X 5 DAYS WITH FOOD 11/26 completed Not Available Not Available Not Available metoprolo l succinate ER 100 mg tablet,ex tended release 24 hr TAKE 1 TABLET BY MOUTH EVERY DAY WITH THE 50MG TABLET 11/26 completed Not Available Not Available Not Available Advair Diskus 100 mcg-50 mcg/dose powder for inhalatio n Inhale 1 puff twice a day by inhalati on route. 11/26 completed Not Available Not Available Not Available amlodipin e 5 mg tablet TAKE 1 TABLET BY MOUTH EVERY DAY 05/20 completed low BP 90/60 at home, 100/60 in office Not Available Not Available Not Available doxepin 10 mg capsule TAKE 1 TO 2 CAPSULES AT BEDTIME NEEDED active Not Available Not Available No t Available peg-elect rolyte solution 420 gram oral solution 05/12 completed Not Available Not Available Not Available aspirin 81 mg tablet,de layed release TAKE 1 TABLET BY MOUTH EVERY DAY active Not Available Not Available No t Available tramadol 50 mg tablet TAKE 1-2 TABLETS BY MOUTH EVERY 4-6 HOURS NEEDED 06/28 completed Not Available Not Available Not Available oxycodone -acetamin ophen 5 mg-325 mg tablet TAKE 1 TABLET BY MOUTH EVERY 4 HOURS NEEDED FOR PAIN 05/12 completed Not Available Not Available Not Available amoxicill in 875 mg tablet TAKE 1 TABLET ORAL ROUTE EVERY 12 HOURS FOR 10 DAYS 11/26 completed Not Available Not Available Not Available prednisol one acetate 1 % eye drops,kim pension INSTILL 1 DROP INTO LEFT EYE 4 TIMES A DAY FOR 4 DAYS 11/26 completed Not Available Not Available Not Available lorazepam 0.5 mg tablet TAKE 1 TABLET BY MOUTH 3 TIMES A DAY NEEDED FOR STRESS active Not Available Not Available No t Available estradiol 1 mg tablet TAKE 1 TABLET BY MOUTH EVERY DAY (PT NEED APPOINTM ENT FOR WELL WOMEN BEFORE NEXT REFILL) active Not Available Not Available No t Available Depo-Prov era 150 mg/mL intramusc ular suspensio n Inject 1 mL every 3 months by intramus cular route. 11/26 completed Not Available Not Available Not Available benzonata te 100 mg capsule TAKE 2 CAPSULES BY MOUTH EVERY 8 HOURS NEEDED 11/26 completed Not Available Not Available Not Available doxycycli ne monohydra te 100 mg capsule 11/26 completed Not Available Not Available Not Available cephalexi n 500 mg capsule TAKE 2 CAPSULES BY MOUTH NOW AND TAKE TAKE 1 CAPSULE EVERY 8 HOURS UNTIL FINISHED 01/02 completed Not Available Not Available Not Available dextroamp hetamine- amphetami ne 20 mg tablet TAKE 1 TABLET BY MOUTH TWICE A DAY 04/27 completed Not Available Not Available Not Available losartan 25 mg tablet Take 1 tablet every day by oral route. 06/07 completed Not Available Not Available Not Available nitroglyc anastasia 0.4 mg sublingua l tablet Take 0.3 mg SL q5min; Max: 3 doses w/in 15min 05/12 completed Not Available Not Available Not Available omeprazol e 20 mg capsule,d elayed release TAKE 1 CAPSULE BY MOUTH EVERY DAY 11/26 completed Not Available Not Available Not Available diclofena c sodium 75 mg tablet,de layed release TAKE 1 TABLET BY MOUTH TWICE DAILY NEEDED active approved Not Available Not Available No t Available cephalexi n 500 mg tablet Take 1 tablet twice a day by oral route for 7 days. 04/27 completed Not Available Not Available Not Available codeine 10 mg-guaife nesin 100 mg/5 mL oral liquid TAKE 5 ML (CC) BY MOUTH AT BEDTIME 11/26 completed Not Available Not Available Not Available methylpre dnisolone 4 mg tablets in a dose pack TAKE 6 TABLETS ON DAY 1 DIRECTED ON PACKAGE AND DECREASE BY 1 TAB EACH DAY FOR A TOTAL OF 6 DAYS active Not Available Not Available No t Available albuterol sulfate HFA 90 mcg/actua tion aerosol inhaler INHALE 2 PUFFS INHALATI ON ROUTE 4 TIMES PER DAY active Not Available Not Available No t Available losartan 100 mg tablet TAKE 1 TABLET BY MOUTH EVERY DAY 11/26 completed Not Available Not Available Not Available naproxen sodium 275 mg tablet TAKE 1 TABLET BY MOUTH 3 TIMES A DAY active Not Available Not Available No t Available fluticaso ne propionat e 50 mcg/actua tion nasal spray,kim pension USE 2 SPRAYS IN EACH NOSTRIL EVERY DAY 04/27 completed Not Available Not Available Not Available doxycycli ne hyclate 100 mg tablet TAKE 1 TABLET BY MOUTH TWICE A DAY FOR 10 DAYS 05/12 completed Not Available Not Available Not Available diazepam 5 mg tablet TAKE 1 TABLET DAILY NEEDED active takes rarely, prescrib ed by psychiat ry Not Available Not Available Not Available progester one micronize d 100 mg capsule TAKE 1 CAPSULE BY MOUTH EVERY DAY 05/12 completed Not Available Not Available Not Available Adderall 10 mg tablet Take 1 tablet every day by oral route. 2024 active Not Available Not Available Not Avai lable hydroxyzi ne pamoate 25 mg capsule TAKE ONE CAPSULE BY MOUTH TWICE A DAY 11/26 completed Not Available Not Available Not Available Amphetami ne Salt Combo 20 mg tablet TAKE 1 TABLET BY MOUTH TWICE A DAY 11/26 completed Not Available Not Available Not Available azithromy gloria 500 mg tablet TAKE 1 TABLET EVERY DAY UNTIL FINISHED active Not Available Not Available No t Available cyclobenz aprine 5 mg tablet TAKE 1 TABLET BY MOUTH 3 TIMES A DAY NEEDED 05/12 completed Not Available Not Available Not Available rosuvasta tin 20 mg tablet TAKE 1 TABLET BY MOUTH EVERY DAY active Not Available Not Available No t Available bupropion HCl XL 300 mg 24 hr tablet, extended release TAKE 1 TABLET DAILY WITH 150 MG TABLET active Not Available Not Available No t Available bupropion HCl XL 150 mg 24 hr tablet, extended release TAKE 1 TABLET EVERY MORNING WITH 300 MG TABLET active Not Available Not Available No t Available Symbicort 80 mcg-4.5 mcg/actua tion HFA aerosol inhaler INHALE 2 PUFFS TWICE A DAY active Not Available Not Available No t Available metoprolo l succinate ER 50 mg capsule sprinkle, ext. release 24 hr Take 1 capsule every day by oral route. active Not Available Not Available No t Available Paxlovid 300 mg (150 mg x 2)-100 mg tablets in a dose pack TAKE DIRECTED 05/12 completed Not Available Not Available Not Available Vitals Date Recorded Body height Body mass index (BMI) Body weight Body temperature Heart rate Oxygen saturation Oxygen saturation in Arterial blood by Pulse oximetry Systolic blood pressure Diastolic blood pressure Provider Name and Address Organization Details Last Updated DateTime 3 163.83 cm 23.7 kg/m2 21944.9 3 g 97.4 [degF] 75 /min 98 % 98 % 118 mm[Hg] 72 mm[Hg] Annette Coffman RN [facility] [employer] [facility] 3 11:45:43 Date Recorded Body weight Heart rate Oxygen saturation Oxygen saturation in Arterial blood by Pulse oximetry Body temperature Systolic blood pressure Diastolic blood pressure Provider Name and Address Organization Details Last Updated DateTime 4 38529.5 6 g 66 /min 98 % 98 % 98.7 [degF] 110 mm[Hg] 70 mm[Hg] Annette Coffman RN [facility] [employer] [facility] 4 10:44:14 Date Recorded Body weight Body temperature Heart rate Oxygen saturation Oxygen saturation in Arterial blood by Pulse oximetry Systolic blood pressure Diastolic blood pressure Provider Name and Address Organization Details Last Updated DateTime 4 65484.3 g 97.3 [degF] 87 /min 97 % 97 % 114 mm[Hg] 86 mm[Hg] Annette Coffman RN [facility] [employer] [facility] 4 10:33:52 Date Recorded Body height Body mass index (BMI) Body weight Body temperature Heart rate Oxygen saturation Oxygen saturation in Arterial blood by Pulse oximetry Systolic blood pressure Diastolic blood pressure Provider Name and Address Organization Details Last Updated DateTime 5 163.83 cm 22 kg/m2 25410.0 1 g 97.2 [degF] 77 /min 95 % 95 % 106 mm[Hg] 78 mm[Hg] Merna Garcia MA [employer] 5 09:18:49 Date Recorded Systolic blood pressure Diastolic blood pressure Provider Name and Address Organization Details Last Updated DateTime 05/20/2024 100 mm[Hg] 60 mm[Hg] Tahmina Cobb RN [facility] [employer] 05/20/2024 17:22:29 Social History Question Answer Notes LastModified by Organization Details LastModified Time Tobacco Smoking Status Former Smoker Merna Garcia MA null, [employer] [facility] [employer] 11/26/2024 09:23:05 What Is Your Level Of Caffeine Consumption? Occasional Information not available 11/26/2024 In The 14 Days Before Symptom Onset, Have You Had Close Contact With A Laboratory-confi rmed COVID-19 While That Case Was Ill? No Information not available 11/26/2024 In The 14 Days Before Symptom Onset, Have You Had Close Contact With A Person Who Is Under Investigation For COVID-19 While That Person Was Ill? No Information not available 11/26/2024 What Type Of Diet Are You Following? REGULAR Low Red Meat Information not available 11/26/2024 Which Illicit Or Recreational Drugs Have You Used? THC Gummies At Bedtime Information not available 11/26/2024 Have There Been Any Changes To Your Family Or Social Situation? No Information not available 11/26/2024 When Did You Quit Smoking? 16+yearssincelastci chelsi Information not available 11/26/2024 Do You Use Insect Repellent Routinely? No Information not available 11/26/2024 Where Do You Live? SingleLevelHouse Information not available 11/26/2024 What Was The Date Of Your Most Recent Tobacco Screening? 11/26/2024 Quit 20+ Years Information not available 11/26/2024 How Many Children Do You Have? 1 Information not available 11/26/2024 Do You Have Any Pets? Yes Information not available 11/26/2024 What Is Your Relationship Status? Single Information not available 11/26/2024 Do You Use Your Seat Belt Or Car Seat Routinely? Yes Information not available 11/26/2024 Do You Have Smoke And Carbon Monoxide Detectors In Your Home? Yes Information not available 11/26/2024 At What Age Did You Start Smoking Tobacco? 16 Information not available 11/26/2024 Are You Passively Exposed To Smoke? No Information not available 11/26/2024 Are There Any Smokers In Your House? No Information not available 11/26/2024 How Much Tobacco Do You Smoke? 1 PPD Information not available 11/26/2024 Do You Participate In Social Media? Yes Information not available 11/26/2024 Do You Use Sunscreen Routinely? No Information not available 11/26/2024 Have You Recently Traveled Abroad? No Information not available 11/26/2024 Have You Used IV Drugs? No Information not available 11/26/2024 Are You Currently In School? No Information not available 11/26/2024 Do You Have Any Dietary Restrictions? No Information not available 11/26/2024 Sex: Unknown Functional Status Question Answer Note LastModified by Organizat ion Details LastModified Time Do you use any illicit or recreational drugs? Yes Information not available 11/26/2024 Do you or have you ever used any other forms of tobacco or nicotine? No Information not available 11/26/2024 What is your level of alcohol consumption? None Information not available 11/26/2024 Are you currently employed? No Retired Information not available 11/26/2024 What is your exercise level? Occasional Information not available 11/26/2024 Mental Status Question Answer Note LastModified by Organization D etails LastModified Time Do you feel stressed (tense, restless, nervous, or anxious, or unable to sleep at night)? [id number] Information not available 11/26/2024 Family History Relationship Description Onset Age of this Age Resolved Age Notes LastModified by Organization Details LastModified Time Father Disorder of thyroid gland [email or web address] Not available 2022 10:52:29 Father Essential hypertension [email or web address] Not available 10:52:36 Medical History No medical history recorded. Gynecological History Statement/Question Response How many live births 1 Date of Last Colonoscopy Most Recent Bone Density Date of LMP Date of Last Pap Smear Current Control Method Hysterectom y Most Recent Mammogram Obstetrics History GPAL:G 1 P 1 0 0 1 Type Value Multiple Births 0 Full Term 1 Induced 0 Spontaneous 0 Premature 0 Living 1 Ectopics 0 Total 1 Past Encounters Encounter ID Performer Location Encounter Start Date Encounter Closed Date Diagnosis/Indication Diagnosis SNOMED-CT Code Diagnosis ICD10 Code Diagnosis Note [id number] JAVON James [facility] Primary Care [facility] [address] [place] [address] 11/16/2022 10:11:15 11/16/2022 10:44:29 [id number] Maria Luz Lo MD [facility] Primary Care [facility] [address] [place] [address] 11/29/2022 10:40:32 11/29/2022 11:14:46 Adult health examination [id number] Z00.00 R53.83 Z13.220 Z13.1 N95.1 E55.9 colonoscop y referral givenmammo gram normal last weekfastin g labs up to daterecomm end shingles vaccine, yearly flu vaccine, covid booster Screening for malignant neoplasm of colon [id number] Z12.11 Chest pain 44006651 R07. 9 Neck pain 81339288 M54.2 [id number] Maria Luz Lo MD [facility] Primary Care [facility] [address] [place] [address] 01/02/2023 11:37:07 01/02/2023 12:21:46 Neck pain [id number] M54.2 improving, f/u prn Hiatal hernia 28008825 K 44.9 AH-needs EGDhas cscope scheduled on 01/17/23 (02/02/23) insurance ends [id number] DHARMESH Ku [facility] Primary Care [address] [place] [address] 05/12/2024 10:35:36 05/12/2024 11:41:13 Idiopathic scoliosis [id number] M41.119 Adult heal th examination [id number] Z00.00 Z00.01 Discussed medication compliance and routine follow up.Discuss ed healthy diet and routine exercise.R eviewed vaccine records and made recommenda tions as needed.Enc ouraged annual eye and dental exams, as well as twice yearly dental cleanings. Will check screening labs as listed below. Essential hypertension 11911234 I10 110/70 Sciatica 78543099 M54.32 Hyperlipidemia 03158256 E78.5 Gastroesop hageal reflux disease without esophagitis 851261431 K21.9 Anxiety 08777371 F41.9 VANITA-7 ()Tate es PRN Ativan.Jack s not need refill at this time.Discu ssed CSA agreement with patient, patient verbalized understand ing and is agreeable to routine drug screenings and follow up appts. [id number] ALICIA Rosenthal [facility] Primary Care [address] [place] [address] 05/20/2024 17:02:31 05/20/2024 17:25:27 [id number] DHARMESH Ku [facility] Primary Care [address] [place] [address] 08/06/2024 10:23:54 08/06/2024 12:01:36 Anxiety 54244074 F41.9 VANITA-7 ()Tate es PRN Ativan.Jack s not need refill at this time.Discu ssed CSA agreement with patient, patient verbalized understand ing and is agreeable to routine drug screenings and follow up appts. Renewal of prescription 023975340 Z76.0 Sciatica 88507271 M54.32 [id number] DHARMESH Ku [facility] Primary Care [facility] [address] [place] [address] 11/26/2024 09:09:42 11/26/2024 10:20:25 Long-term drug therapy [id number] Z79.891 Will update drug screen in office today Sciatica 33019640 M54.32 Will refill dose pack as listed below. Discussed with patient that she needs to see pain management or neurosurge ry due to chronic pain. Patient is agreeable but would like to wait for the referral to be placed because her insurance is switching next month. Screening mammography 24 649529 Z12.31 Attention deficit hyperactivity disorder 367439020 F90.9 Will start Adderall as listed below. Patient is aware of CSA, UDS will be updated today. Patient is aware that if dose needs to be changed she will need to be referred to psych. Health Concerns Section Related Observation LastModified by Organization Detai ls LastModified Time None Recorded Concern Status LastModified by Organization Details LastModified Time None Recorded Advance Directives Directive None Recorded Payers Encounter Date Sequence Insurance Name Policy Number Policy Aguirre Covered Member ID Aguirre Member ID Guarantor Name 01/02/2023 1 [facility] ON OR AFTER 02/16/21 (MEDICAID REPLACEMENT - HMO) Daniela Pringle [id number] Daniela Pringle 05/12/2024 1 [facility] - DOS ON OR AFTER 21 (MEDICAID REPLACEMENT - HMO) Daniela Pringle [id number] Daniela Pringle 05/20/2024 1 [facility] - DOS ON OR AFTER 21 (MEDICAID REPLACEMENT - HMO) Daniela Pringle [id number] Daniela Pringle 08/06/2024 1 [facility] - DOS ON OR AFTER 21 (MEDICAID REPLACEMENT - HMO) Daniela Pringle [id number] Daniela Pringle 11/26/2024 1 [facility] - DOS ON OR AFTER 21 (MEDICAID REPLACEMENT - HMO) Daniela Pringle [id number] Daniela Pringle Notes Date Note Type Note Provider Name and Address Organization Details Recorded Time 01/02/2023 text/html Here for check u p having pain right neck, front of the throat up to ear and into chest. She has been sitting propped awkwardly to watch tv and thinks this is contributing. No cough, no wheezing, no sob update 01/02/23: neck pain is improving, has colonoscopy scheduled for 01/17/23 Maria Luz Lo MD [address] [facility] [facility] [address], [place], [address], [employer] 01/15/2023 22:38:54 05/12/2024 text/html Patient is a 54 year old female that presents to the office for annual wellness. Patient reports she is doing well on current medications. Patient denies chest pain and shortness of breath, nausea vomiting and diarrhea. Patient reports her primary concern is that she is going to see her dad in [place] and the car ride is always aggravating due to her scoliosis and spondylosis. Patient reports she would typically take muscle relaxers to help with the discomfort when she arrived there. Patient also reports left low back pain that radiates down left leg. Patient denies numbness and tingling of left lower leg. Patient denies loss of bowel and bladder. Patient reports intermittent issues with sciatica. Patient reports history of alcohol dependence, has been sober for 2 weeks. labs-orderedMammogra r-KJSXVQ-wlwyfgvpbrf y in MayColonoscopy-UTD-- January 2023Flu-declinesCovi n-YEFZaby-boikpJsonp les-one dose DHARMESH Ku [address] [facility] [facility] [address], [place], [address], [employer] 05/12/2024 12:11:31 08/06/2024 text/html Patient is a 54 year old female that presents to the office for routine follow up. Patient reports she is doing well overall. Patient reports low back pain that has been ongoing for awhile, typically notices it when she sits for long periods of time (patient sits with her legs twisted). Patient reports pain occasionally radiates down legs. Patient denies numbness and tingling of bilateral lower extremities. Patient is 3 months sober. Patient reports she has a great support system and is doing well. 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 Patient denies chest pain and shortness of breath. DHARMESH Ku [address], [place], [address], [employer] 08/17/2024 13:45:29 11/26/2024 text/html Patient is here for 3 month follow up on medications. Patient reports she is doing well on current dose of Alprazolam. Patient also reports her current dose of Bupropion is working well for her. Will update UDS today. Patient reports continued chronic back pain due to scoliosis and sciatica. Patient reports experiencing a flare about every 3 months. Patient reports cardiac testing was normal, diagnosed with sleep apnea which patient believes was related to chronic alcohol use (now 6 months sober) and anxiety. Patient had a sleep study done. Patient was previously on Adderall 40mg daily for ADHD however they discontinued the medication due to her alcohol use. Patient has been sober for 6 months and would like to restart Adderall for ADHD. DHARMESH Mcconnell [address], [place], [address], [employer] 11/26/2024 10:26:37 OBGyn Episode No OBEpisode recorded.
--- OUTSIDE RECORDS SUMMARY | 2025-01-05 16:17 | XMS_ITS | Clinical Summary ---
Author Organization [facility] [address] Address [address] [place] [address] Care Team Providers Care Supercharger Mechanic Name Role Phone Maria Luz Lo MD [...] Active Active Problems No known active problems Surgical History Surgery Date Site/Laterality Comments SECTION HERNIA REPAIR RECTAL PROLAPSE REPAIR Medical History Medical History Date Comments Hyperlipidemia Hypertension Anxiety Adhd Seasonal asthma Hiatal hernia 04/22/2020 Seen on chest x- ray Family History Medical History Relation Name Comments Hyperlipidemia Father Hypertension Father Stroke Maternal Grandmother Parkinsonism Mother Cancer Paternal Grandfather Cancer Paternal Grandmother Relation Name Status Comments Father Alive Maternal Grandmother Mother Paternal Grandfather Paternal Grandmother Social History Tobacco Use Types Packs/Day Years Used Date Smoking Tobacco: Never Alcohol Use Standard Drinks/Week Comments Yes 20 (1 standard drink = 0.6 oz pu re alcohol) Comments Unknown Sex and Gender Information Value Date Recorded Sex Assigned at Not on file 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
--- OUTSIDE RECORDS SUMMARY | 2025-01-05 16:17 | XMS_ITS | Continuity of Care Document ---
Author Organization [facility] Address [address] [place] [address] [address] [place] [address] Phone Care Team Providers Care Cyanide Pot Hardener Name Role Phone Doisy, Edward Unavailable Unavailable Advance Directives Directive Yes / No Effective Date File Name No Information Encounters Encounter Description Practice Location Reason(s) For Visit Diagnoses Date Provider Providers Copied on Encounter [facility], [address], [place], [place], [id number], [place] tel:[phone] [facility] No Information [address] Doisy Edward. [address], [place], [address], [place]. tel:[phone] Family History Family Member Type Diagnosis Age At Onset No Information Payers Payer name Insurance type Covered democrat ID Authoriza tion(s) No Information Social History [...]
--- OUTSIDE RECORDS SUMMARY | 2025-01-05 16:17 | XMS_ITS | Clinical Summary ---
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 Gender Identity Not on file Sexual Orientation Not on file Plan of Treatment Health Maintenance Due Date Last Done Comments Hepatitis C Virus (HCV) Screening 1971 TdaP Immunization 1971 Hepatitis B Immunization (1 of 3 - 19+ 3-dose series) 1990 Pap Smear 01/15/1992 Cervical Cancer Screening (CCS) 2001 HPV/Cotest 2001 Colonoscopy 01/15/2016 Colorectal Cancer Screening 01/15/2016 Cologuard 2021 Immunochemical Fecal Occult Blood 2021 Mammogram 2021 Pneumococcal Immunization (5 0+ years) (1 of 1 - PCV) 2021 Zoster Immunization (1 of 2) 2021 Influenza Immunization (#1) 2024 08/07/2015 SARS-COV-2 Immunization ( - season) 2024 11/28/2020, 11/03/2020 Respiratory Syncytial Virus (RSV) Immunization (Adult) (1 - 1-dose 75+ series) 2046 Meningococcal Immunization (ACWY) Aged Out No longer eligible b ased on patient's age to complete this topic Pneumococcal Immunization Combined Aged Out No longer eligible b ased on patient's age to complete this topic Rotavirus Immunization Aged Out No lo nger eligible based on patient's age to complete this topic
--- OUTSIDE RECORDS SUMMARY | 2025-01-05 16:18 | XMS_ITS | Data Portability ---
Author Organization [facility] Address [address] [place] [address] [place] [address] Assessment No assessment recorded. Plan of Treatment Reminders Order Date Submit Date Provider Last Modified By Organization Details Last Modified Time Details Appointments None recorded. Lab None recorded. Referral None recorded. Procedures None recorded. Surgeries total hysterectom y, laparoscopi c, with bilateral salpingo-oo phorectomy (SURG) 2023 024 [facility], [address] [facility], [place], [address], 4 12:28:00 Imaging US, transvagina l 2023 024 [email or web address] [place], [address], [address], [place], [address], 4 19:29:56 Medication Orders estradiol 1 mg tablet 2023 024 [email or web address] [facility] #[id number], [address] [place], [address], 4 09:19:26 progesteron e micronized 100 mg capsule 2023 024 [facility] #[id number], [address] [place], [address], 4 11:35:00 Patient TargetsNo targets recorded. Patient InstructionsNo instructions recorded. Reason for Referral None Reported. Results Created Date Observation Date Name Description Value Unit Range Abnormal Flag Note LastModifiedBy Organization Detail LastModifiedTime 12/17/19 24 12/17/2023 CBC W/DIF F WBC 5.7 10'3/ uL 3.5-10 .5 Not Available [facility] (Lab) [address] , [place], [address], 12/18/2023 04:12:14 12/17/19 24 12/17/2023 CBC W/DIF F RBC 3.73 10'6/ uL (based on docume nted legal sex) 3.80-5 .20 low Not Available [facility] (Lab) [address] [facility], [place], [address], 12/18/2023 04:12:14 12/17/19 24 12/17/2023 CBC W/DIF F HGB 12.6 g/dL (based on docume nted legal sex) 11.6-1 5.4 Not Available [facility] (Lab) [address] [facility], [place], [address], 12/18/2023 04:12:14 12/17/19 24 12/17/2023 CBC W/DIF F HCT 38.0 % (based on docume nted legal sex) 34.0-4 5.0 Not Available [facility] (Lab) [address], [place], [address], 12/18/2023 04:12:14 12/17/19 24 12/17/2023 CBC W/DIF F MCV 101.9 fL 80.0-9 9.0 high Not Available [facility] (Lab) [address] [facility], [place], [address], 12/18/2023 04:12:14 12/17/19 24 12/17/2023 CBC W/DIF F MCH 33.8 pg 27.0-3 4.0 Not Available [facility] (Lab) [address], [place], [address], 12/18/2023 04:12:14 12/17/19 24 12/17/2023 CBC W/DIF F MCHC 33.2 g/dL 32.0-3 5.5 Not Available [facility] (Lab) [address] [facility], [place], [address], 12/18/2023 04:12:14 12/17/19 24 12/17/2023 CBC W/DIF F RDW 13.5 % 11.0-1 5.0 Not Available [facility] (Lab) [address] [facility], [place], [address], 12/18/2023 04:12:14 12/17/19 24 12/17/2023 CBC W/DIF F plt 269 10'3/ uL 150-40 0 Not Available [facility] (Lab) [address], [place], [address], 12/18/2023 04:12:14 12/17/19 24 12/17/2023 CBC W/DIF F MPV 9.5 fL 8.8-12 .1 Not Available [facility] (Lab) [address], [place], [address], 12/18/2023 04:12:14 12/17/19 24 12/17/2023 CBC W/DIF F NRBC's 0.0 % 0.0 Not Available [facility] (Lab) [address], [place], [address], 12/18/2023 04:12:14 12/17/19 24 12/17/2023 CBC W/DIF F absolute NRBCs 0.0 10'3/ uL no refere nce range establ ished Not Available [facility] (Lab) [address], [place], [address], 12/18/2023 04:12:14 12/17/19 24 12/17/2023 CBC W/DIF F neutrophils 64.7 % 34.0-7 3.0 Not Available [facility] (Lab) [address], [place], [address], 12/18/2023 04:12:14 12/17/19 24 12/17/2023 CBC W/DIF F lymphocytes 25.4 % 15.0-5 0.0 Not Available [facility] (Lab) [address] [place], [address], 12/18/2023 04:12:14 12/17/19 24 12/17/2023 CBC W/DIF F monocytes 7.4 % 1.0-15 .0 Not Available [facility] (Lab) [address], [place], [address], 12/18/2023 04:12:14 12/17/19 24 12/17/2023 CBC W/DIF F eosinophils 1.4 % 0.0-8. 0 Not Available [facility] (Lab) [address], [place], [address], 12/18/2023 04:12:14 12/17/19 24 12/17/2023 CBC W/DIF F basophils 0.9 % 0.0-2. 0 Not Available [facility] (Lab) [address], [place], [address], 12/18/2023 04:12:14 12/17/19 24 12/17/2023 CBC W/DIF F immature granulocytes 0.2 % no define d refere nce range Not Available [facility] (Lab) [address], [place], [address], 12/18/2023 04:12:14 12/17/19 24 12/17/2023 CBC W/DIF F absolute neutrophils 3.7 10'3/ uL 1.5-8. 0 Not Available [facility] (Lab) [address] [place], [address], 12/18/2023 04:12:14 12/17/19 24 12/17/2023 CBC W/DIF F absolute lymphocytes 1.5 10'3/ uL 1.0-4. 0 Not Available [facility] (Lab) [address] [place], [address], 12/18/2023 04:12:14 12/17/19 24 12/17/2023 CBC W/DIF F absolute monocytes 0.4 10'3/ uL 0.2-1. 0 Not Available [facility] (Lab) [address] [facility], [place], [address], 12/18/2023 04:12:14 12/17/19 24 12/17/2023 CBC W/DIF F absolute eosinophils 0.1 10'3/ uL 0.0-0. 6 Not Available [facility] (Lab) [address], [place], [address], 12/18/2023 04:12:14 12/17/19 24 12/17/2023 CBC W/DIF F absolute basophils 0.1 10'3/ uL 0.0-0. 3 Not Available [facility] (Lab) [address], [place], [address], 12/18/2023 04:12:14 12/17/19 24 12/17/2023 CBC W/DIF F absolute immature granulocytes 0.0 10'3/ uL 0.00-0 .10 024 1:54 AM: P indic ates parti al resul ts on a panel have been relea sed. Addit ional resul ts will follo w. 024 1:54 AM: This resul t has been final verif ied. No addit ional or crystal ed resul ts are expec naun. Not Available [facility] (Lab) [address], [place], [address], 12/18/2023 04:12:14 12/17/19 24 12/17/2023 LIPID PANEL ,AMA (LDL- CALC) total cholesterol 201 mg/dL 0-[address] [facility] (Lab) [address] [facility], [place], [address], 12/18/2023 04:12:15 12/17/19 24 12/17/2023 LIPID PANEL ,AMA (LDL- CALC) triglyceride s 324 mg/dL 0-150 high NCEP Refer ence Value s for Trigl yceri juan r: Trinidad l: <150 mg/dL Borde rline High: 150 - 199 mg/dL High: 200 - 499 mg/dL Very High: >/= 500 mg/dL Not Available [facility] (Lab) [address], [place], [address], 12/18/2023 04:12:15 12/17/19 24 12/17/2023 LIPID PANEL ,AMA (LDL- CALC) HDL cholesterol 83 mg/dL >[address] [facility] (Lab) [address], [place], [address], 12/18/2023 04:12:15 12/17/19 24 12/17/2023 LIPID PANEL ,AMA (LDL- CALC) LDL cholesterol 79 mg/dL 0-99 Cutof f value s recom kitty d by the Natio nal Karla stero l Educa tion Progr am: BISHOP ABLE: Karla stero l <200 mg/dL LDL <100 mg/dL BORDE RLINE : Karla stero l 200-2 39 mg/dL LDL 101-1 59 mg/dL HIGHE R RISK: Karla stero l >240 mg/dL LDL >160 mg/dL , HDL <40 mg/dL Not Available [facility] (Lab) [address], [place], [address], 12/18/2023 04:12:15 12/17/1912/17/2023 LIPID PANEL ,AMA (LDL- CALC) non-HDL cholesterol 118 mg/dL no refere nce range A reaso nable goal for non-H DL karla stero l is one that is 30 mg/dL highe r than the LDL karla stero l goal. Not Available [facility] (Lab) [address], [place], [address], 12/18/2023 04:12:15 12/17/19 24 12/17/2023 LIPID PANEL ,AMA (LDL- CALC) chol/HDL ratio 2.4 . 0.0-5. 0 On December 11, 2022, [facility] labor atori idnesh crystal ed the equat ion for calcu latin g estim ated low-d ensit y lipop rotei n-cho leste rol (LDL- C) from the Fried yuly equat ion to the In n/Hop siva equat ion. This new equat ion is only valid for lipid panel s with trigl yceri juan r < 400 mg/dL . Studi es have demon strat ed that this new equat ion will impro ve the accur acy of LDL-C , espec ially in scena harrell when LDL-C bob ntrat ions are relat ively low (< 100 mg/dL ), trigl yceri juan r are eleva naun, or patie nt is non-f astin g. Refer ences : - Ni desai, Wellington Hess, Chip Gonzalez , Terence garay, Enrike Lobo, Enrike thibodeaux, Juan Pablo barbosa , and Derek Acevedo . 2013. Comp ariso n of a Novel Metho d vs the Fried yuly Equat ion for Estim ating Low-D ensit y Lipop rotei n Karla stero l Level s from the Stand eleonora Lipid Profranjan le. HONG: The Journ al of the Ameri can Medic al Assoc iatio n 310 (19): 2060- . - Carmel ortiz V, Ximena J, Dinesh ar A, Ramos M, Mery e R, Irwin ortiz E, Abdoulaye barbosa RS, Curtis SR, Ni desai SS. Fast ing Versu s Nonfa sting and Low-D ensit y Lipop rotei n Karla stero l Accur acy. Circu latio n. 2017Aug 20;137 (1):1 0-19. Not Available [facility] (Lab) [address], [place], [address], 12/18/2023 04:12:15 12/17/19 24 12/17/2023 CMP(C OMPRE HENSI VE METAB OLIC PANEL ) sodium 138 mmol/ L 133-14 6 Not Available [facility] (Lab) [address] [place], [address], 12/18/2023 04:12:15 12/17/19 24 12/17/2023 CMP(C OMPRE HENSI VE METAB OLIC PANEL ) potassium 4.4 mmol/ L 3.5-5. 1 Not Available [facility] (Lab) [address], [place], [address], 12/18/2023 04:12:15 12/17/19 24 12/17/2023 CMP(C OMPRE HENSI VE METAB OLIC PANEL ) chloride 102 mmol/ L 98-107 Not Available [facility] (Lab) [address], [place], [address], 12/18/2023 04:12:15 12/17/19 24 12/17/2023 CMP(C OMPRE HENSI VE METAB OLIC PANEL ) carbon dioxide 24 mmol/ L 21-31 Not Available [facility] (Lab) [address], [place], [address], 12/18/2023 04:12:15 12/17/19 24 12/17/2023 CMP(C OMPRE HENSI VE METAB OLIC PANEL ) anion gap 12 mmol/ L 4-13 Not Available [facility] (Lab) [address], [place], [address], 12/18/2023 04:12:15 12/17/19 24 12/17/2023 CMP(C OMPRE HENSI VE METAB OLIC PANEL ) blood urea nitrogen 16 mg/dL 7-25 Not Available [facility] (Lab) [address], [place], [address], 12/18/2023 04:12:15 12/17/19 24 12/17/2023 CMP(C OMPRE HENSI VE METAB OLIC PANEL ) creatinine 0.80 mg/dL 0.60-1 .30 Not Available [facility] (Lab) [address] [place], [address], 12/18/2023 04:12:15 04/30/20 24 12/17/2023 CMP(C OMPRE HENSI VE METAB OLIC PANEL ) egfrcr (CKD-epi 2020) 89 mL/mi n/1.7 3_m2 >=60 Not Available [facility] (Lab) [address], [place], [address], 12/18/2023 04:12:15 12/17/19 24 12/17/2023 CMP(C OMPRE HENSI VE METAB OLIC PANEL ) calcium 9.6 mg/dL 8.3-10 .5 Not Available [facility] (Lab) [address], [place], [address], 12/18/2023 04:12:15 12/17/19 24 12/17/2023 CMP(C OMPRE HENSI VE METAB OLIC PANEL ) glucose 90 mg/dL 70-100 Not Available [facility] (Lab) [address], [place], [address], 12/18/2023 04:12:15 12/17/19 24 12/17/2023 CMP(C OMPRE HENSI VE METAB OLIC PANEL ) protein, total 6.8 g/dL 6.4-8. 3 Not Available [facility] (Lab) [address], [place], [address], 12/18/2023 04:12:15 12/17/19 24 12/17/2023 CMP(C OMPRE HENSI VE METAB OLIC PANEL ) albumin 4.2 g/dL 3.5-5. 0 Not Available [facility] (Lab) [address], [place], [address], 12/18/2023 04:12:15 12/17/19 24 12/17/2023 CMP(C OMPRE HENSI VE METAB OLIC PANEL ) ALT 19 units /L 9-43 Not Available [facility] (Lab) [address] [place], [address], 12/18/2023 04:12:15 12/17/19 24 12/17/2023 CMP(C OMPRE HENSI VE METAB OLIC PANEL ) alkaline phosphatase 59 units /L 34-104 Not Available [facility] (Lab) [address], [place], [address], 12/18/2023 04:12:15 12/17/19 24 12/17/2023 CMP(C OMPRE HENSI VE METAB OLIC PANEL ) AST 19 units /L 13-39 Not Available [facility] (Lab) [address], [place], [address], 12/18/2023 04:12:15 12/17/19 24 12/17/2023 CMP(C OMPRE HENSI VE METAB OLIC PANEL ) bilirubin, total 0.5 mg/dL 0.2-1. 2 Not Available [facility] (Lab) [address], [place], [address], 12/18/2023 04:12:15 12/17/19 24 12/17/2023 VITAM IN D, 25-OH (TOTA L D2/D3 ) vitamin D, 25-hydroxy, total 51.6 NG/mL 30.0-1 00.0 Sugge stive of Defic iency : <20 ng/mL Sugge stive of Insuf ficie ncy: 20-29 ng/mL Sugge stive of Suffi cienc y: 30-10 0 ng/mL Sugge stive of Toxic ity: >150 ng/mL Not Available [facility] (Lab) [address], [place], [address], 12/18/2023 04:12:16 04/19/20 23 04/19/2023 US, trans vagin al No observ ation record ed. [email or web address] [place] [address], [place], [address], 04/19/2023 13:50:45 04/19/20 23 04/19/2023 US, trans vagin al No observ ation record ed. [email or web address] [facility] [address], [place], [address], 04/19/2023 23:05:10 10/02/19 24 10/02/2023 US, trans vagin al No observ ation record ed. [email or web address] [place] [address], [place], [address], 10/02/2023 12:59:32 10/02/19 24 10/02/2023 US, trans vagin al No observ ation record ed. [email or web address] [address] [facility], [place], [address], 10/02/2023 20:48:31 12/17/19 24 12/17/2023 MAMMO , scree lakshmi, bilat eral No observ ation record ed. [facility] [address] [place], [address], 12/18/2023 09:25:27 01/02/20 24 01/02/2024 MAMMO , diagn ostic , digit al, unila teral No observ ation record ed. [facility] [address] [place], [address], 01/02/2024 22:42:54 Result Notes None recorded. Procedures Surgical History Date Name Laterality Status Provider Name and Address Organization Details Recorded Time 12/25/19 24 TOTAL HYSTERECTOMY, LAPAROSCOPIC, WITH BILATERAL SALPINGO-OOPHOR ECTOMY (SURG) completed Trav Neal [facility] 12/25/2023 12:42:13 11/16/19 23 Date of Last Pap Smear completed Romelia Basurto [facility] 11/14/2023 14:22:20 08/19/19 23 completed [facility] 05/03/2023 12:09:18 08/19/19 23 Date of Last Mammogram completed Shruthi Cordova [facility] 05/03/2023 12:09:18 08/19/19 23 Date of Last Colonoscopy completed Shruthi Cordova [facility] 05/03/2023 12:09:18 [facility] 11/15/2022 11:33:10 [facility] 11:33:10 Imaging Results Imaging Date Name Status LastModified by Organization Details LastModified Time 04/19/2023 US, transvaginal completed [email or web address] [facility] [address], [place], [address], 04/19/2023 13:50:45 04/19/2023 US, transvaginal completed [email or web address] [facility] [address], [place], [address], 04/19/2023 23:05:10 10/02/2023 US, transvaginal completed [email or web address] [address], [place], [address], 10/02/2023 12:59:32 10/02/2023 US, transvaginal completed [email or web address] [facility] [address], [place], [address], 10/02/2023 20:48:31 12/17/2023 MAMMO, screening, bilateral completed [facility] [address] [place], [address], 12/18/2023 09:25:27 01/02/2024 MAMMO, diagnostic, digital, unilateral completed [facility] [address] [place], [address], 01/02/2024 22:42:54 Procedure Notes None recorded. Medical Equipment None Reported. Allergies Allergen ID Allergen Name Allergen Category Reaction Reaction Severity Criticality Documentation Date Start Date Code Code System Note Provider Name and Address Organization Details Recorded Time Sulfite and/or sulfite derivativ e (substanc e) food,medi cation rash moderate Not available 11/15/2022 29225 [id number] SNOMED Barbi soriano [facility] 3 11:32:50 Medications Name Sig Start Date Stop Date Status Note LastModified by Organization Details LastModified Time metoprolol succinate ER 100 mg tablet,exte nded release 11/15 completed Not Available Not Available Not Available metoprolol succinate ER 50 mg tablet,exte nded release 24 hr TAKE 1 TABLET BY MOUTH EVERY DAY ALONG WITH THE 100 MG TABLET active Not Available Not Available No t Available valacyclovi r 1 gram tablet TAKE 1 TABLET BY MOUTH EVERY DAY active Not Available Not Available No t Available hydrocodone 5 mg-acetamin ophen 325 mg tablet 11/15 completed Not Available Not Available Not Available prednisone 20 mg tablet TAKE 3 TABLETS BY MOUTH ONCE DAILY FOR 5 DAYS 11/15 completed Not Available Not Available Not Available metoprolol succinate ER 100 mg tablet,exte nded release 24 hr TAKE 1 TABLET BY MOUTH EVERY DAY WITH THE 50MG TABLET active Not Available Not Available No t Available amlodipine 5 mg tablet TAKE 1 TABLET BY MOUTH EVERY DAY active Not Available Not Available No t Available peg-electro lyte solution 420 gram oral solution 11/13 completed Not Available Not Available Not Available aspirin 81 mg tablet,elif yed release TAKE 1 TABLET BY MOUTH EVERY DAY active Not Available Not Available No t Available oxycodone-a cetaminophe n 5 mg-325 mg tablet TAKE 1 TABLET BY MOUTH EVERY 4 HOURS NEEDED FOR PAIN 12/31 completed Not Available Not Available Not Available prednisolon e acetate 1 % eye drops,suspe nsion INSTILL 1 DROP INTO LEFT EYE 4 TIMES A DAY FOR 4 DAYS 11/15 completed Not Available Not Available Not Available lorazepam 0.5 mg tablet TAKE 1 TABLET BY MOUTH 3 TIMES A DAY NEEDED FOR STRESS. NEEDS APPT BEFORE NEXT REFILL active Not Available Not Available No t Available estradiol 1 mg tablet TAKE 1 TABLET BY MOUTH EVERY DAY (pt need appointme nt for [facility] before next refill) 2024 active Not Available Not Available Not Avai lable benzonatate 100 mg capsule TAKE 1 CAPSULE BY MOUTH EVERY 8 HOURS NEEDED 11/15 completed Not Available Not Available Not Available cephalexin 500 mg capsule TAKE 2 CAPSULES BY MOUTH NOW AND TAKE TAKE 1 CAPSULE EVERY 8 HOURS UNTIL FINISHED 11/15 completed Not Available Not Available Not Available albuterol sulfate HFA 90 mcg/actuati on aerosol inhaler INHALE 2 PUFFS EVERY 4 HOURS NEEDED FOR SHORTNESS OF BREATH 11/13 completed Not Available Not Available Not Available losartan 100 mg tablet TAKE 1 TABLET BY MOUTH EVERY DAY active Not Available Not Available No t Available doxycycline hyclate 100 mg tablet TAKE 1 TABLET BY MOUTH TWICE A DAY FOR 10 DAYS 11/15 completed Not Available Not Available Not Available progesteron e micronized 100 mg capsule TAKE 1 CAPSULE BY MOUTH EVERY DAY active Not Available Not Available No t Available rosuvastati n 20 mg tablet TAKE 1 TABLET BY [...] tablets in a dose pack TAKE DIRECTED 11/13 completed Not Available Not Available Not Available Vitals Date Recorded Body height Body mass index (BMI) Body weight Systolic blood pressure Diastolic blood pressure Provider Name and Address Organization Details Last Updated DateTime 05/03/2023 163.83 cm 22.1 kg/m2 17204.6 g 116 mm[Hg] 81 mm[Hg] Shruthi Cordova [facility] 3 12:09:05 Date Recorded Body height Body mass index (BMI) Body weight Systolic blood pressure Diastolic blood pressure Provider Name and Address Organization Details Last Updated DateTime 10/04/2023 163.83 cm 23.1 kg/m2 69299.72 g 122 mm[Hg] 85 mm[Hg] Sierra Moser [facility] 4 11:04:35 Date Recorded Body height Body mass index (BMI) Body weight Systolic blood pressure Diastolic blood pressure Provider Name and Address Organization Details Last Updated DateTime 11/14/2023 160.02 cm 23.7 kg/m2 70013.38 g 106 mm[Hg] 70 mm[Hg] Romelia Sb [facility] 4 14:20:09 Date Recorded Body height Body mass index (BMI) Body weight Systolic blood pressure Diastolic blood pressure Provider Name and Address Organization Details Last Updated DateTime 01/01/2024 160.02 cm 24.6 kg/m2 92418.34 g 117 mm[Hg] 63 mm[Hg] Mckenzie Sumner [facility] 4 14:32:16 Social History Question Answer Notes LastModified by Organizat ion Details LastModified Time Tobacco Smoking Status Never Smoker Shruthi Cordova bo, [facility] 05/03/2023 12:09:22 Are You Blind Or Do You Have Difficulty Seeing? No Information n ot available 11/15/2022 What Is Your Level Of Caffeine Consumption? Occasional Information not available 11/15/2022 How Much Tobacco Do You Chew? None Information not available 11/15/2022 In The 14 Days Before Symptom Onset, Have You Had Close Contact With A Laboratory-confirm ed COVID-19 While That Case Was Ill? No Information n ot available 11/15/2022 In The 14 Days Before Symptom Onset, Have You Had Close Contact With A Person Who Is Under Investigation For COVID-19 While That Person Was Ill? No Information not available 11/15/2022 Have You Been To An Area Known To Be High Risk For COVID-19? No Information not available 11/15/2022 Are You Deaf Or Do You Have Serious Difficulty Hearing? No Information not available 11/15/2022 What Type Of Diet Are You Following? REGULAR Information n ot available 11/15/2022 What Is The Highest Grade Or Level Of School You Have Completed Or The Highest Degree You Have Received? [id number] Information not available 11/15/2022 Are There Any Guns Present In Your Home? Yes Information not available 11/15/2022 Do You Use Protection During Sex? Always Information not available 11/15/2022 Do You Use Your Seat Belt Or Car Seat Routinely? Yes Information not available 11/15/2022 Do You Have Smoke And Carbon Monoxide Detectors In Your Home? Yes Information not available 11/15/2022 How Much Tobacco Do You Smoke? No Information not available 11/15/2022 Do You Use Sunscreen Routinely? No Information not available 11/15/2022 Have You Used IV Drugs? No Information not available 05/03/2023 Do You Have Difficulty Walking Or Climbing Stairs? No Information not available 05/03/2023 Sex: Unknown Functional Status Question Answer Note LastModified by Organizat ion Details LastModified Time Do you use any illicit or recreational drugs? No Information not available 11/15/2022 What is your level of alcohol consumption? Occasional [email or web address] Information not available 11/14/2023 Are you able to walk? YESWOREST Information not available 11/15/2022 Are you able to care for yourself? 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 No Information not available 05/03/2023 What is your exercise level? None Information not available 11/15/2022 Mental Status Question Answer Note LastModified by Organization D etails LastModified Time Do you feel stressed (tense, restless, nervous, or anxious, or unable to sleep at night)? [id number] Information not available 05/03/2023 Family History Nothing Reported. Medical History Condition Response Anxiety Disorder Y Allergies (Food, seasonal, environmental ) Y Other Y Hypertension Y GI Problems Y Depression/ depression Y High Cholesterol Y Gynecological History Statement/Question Response Abnormal Pap Y Date of Last Mammogram 08/19/2022 On BCP's at Conception? Y N Was last menstrual period normal N STIs/STDs Y HPV Vaccine N Current Control Method Menopause Age at First Child 34 If Post Menopausal, Age at Menopause 50 Are cycles usually normal N Date of Last Colonoscopy 08/19/2022 Sexually Active? N Menses Monthly N Age of first menstrual cycle 14 Date of Last Pap Smear 11/15/2022 Sexual Problems? N Desired Control Method Condoms LMP Unknown 08/19/2022 N Obstetrics History GPAL:G 1 P 0 0 0 1 Type Value Living 1 Total 1 Past Encounters Encounter ID Performer Location Encounter Start Date Encounter Closed Date Diagnosis/Indication Diagnosis SNOMED-CT Code Diagnosis ICD10 Code Diagnosis Note [id number] CAROL Ojeda [place] [address] [address] 11/15/2022 11:17:33 11/15/2022 12:13:08 Screening for malignant neoplasm of breast 695832868 Z12.39 Cyst of ovary [id number] N 83.209 Gynecologi c examination 37369447 Z01.419 Take Calcium with Vitamin D 12-1500mg daily. Do monthly self breast exams. It is advised to get annual flu shot in the fall and she could obtain at [facility] or [facility] care clinic. If you haven't received the Tdap vaccine in the last 10 years you should obtain one as well. Have mammogram yearly, bone density every 2-3 years and colonoscop y every 5-10 years depending on findings and history. Engage in daily exercise of low impact aerobic exercise 45-60 minutes 4-5 times weekly. Avoid tobacco and illicit drugs as well as using moderation with alcohol intake less than 1-2 8 oz beverages daily. This lifestyle behavior pattern will lead to less health conditions and longer life span. If BMI greater than 25 weight watchers or dietary consult advised. Questions have been answered. Patient appears to understand instructio ns, but if you have any further questions call or respond to this email WWEpostmen opausal since 50, no bleeding sinceSeen in the ER on 04/2022 for pelvic pain, found to have 1.5cm right ovarian cyst by TVUS. Report reviewed today. She is currently asymptomat ic. Order given for repeat pelvic u/s, encouraged her to schedule this.Hx of abnormal pap in the past, unsure when. Unsure how long ago last pap was, 5-10 years agopap done todaySTI testing declinedMa mmogram order givenunkno wn fam hx, patient was adoptednee ds colonoscop y, last 10 years ago - she will obtain order from [facility] in urine at ER visit, repeat UA orderedhas PCP appointmen t next week for routine labsRTC for pelvic u/s and f/u Microscopic hematuria 19 [id number] R31.29 [id number] Raul Ordonez MD [place] [address] [address] 11/16/2022 10:42:31 11/16/2022 11:40:01 Cyst of right ovary [id number] N83.201 [id number] CAROL Ojeda [place] [address],[place] [address] 11/28/2022 12:17:28 11/28/2022 13:20:03 Cyst of ovary [id number] N83.209 today we reviewed updated TVUS - small hemorrhagi c area seen on rt ovary, persistent since he is currently asymptomat icgiven she is postmenopa usal, recommende d ca 125 and consultshjose f will have ca 125 done todayMD consult scheduled Time spent in visit is a total of 15 mins with at least 50% of visit consisting of counseling and review of plan of care. [id number] Raul Ordonez MD [place] [address],[facility] [address] 12/27/2022 12:13:02 12/27/2022 14:44:30 Herpes simplex [id number] B00.9 Cyst of ovary [id number] N 83.209 52-year-ol d female who presents for follow-up on ovarian cyst. Reviewed the ultrasound today. She had an episode of severe pain several months ago. A follow-up ultrasound revealed a ovarian cyst. It was a hemorrhagi c cyst. Unusual for 52-year-ol d. We talked about that. She stopped having menses about a year ago. Reviewed images together. Talked about ovarian cyst and hemorrhagi c cyst. Spent over 20 minutes face-to-fa ce. More than 50% was counseling . We agreed to repeat ultrasound and discussed this findings. She also would like refills on her herpes prevention medication . She takes 1 g a day. [id number] Raul Ordonez MD [place] [address],[place] [address] 01/18/2023 10:48:23 01/18/2023 11:46:15 Ultrasound scan abnormal [id number] R93.89 [id number] Raul Ordonez MD [place] [address],[place] [address] 01/21/2023 11:05:39 01/21/2023 12:52:59 Mass of ovary [id number] R19.09 patient is a 53-year-ol d female presents for follow-up on ovarian lesion. The lesion is still present. It is unchanged in size. It is mildly suspicious . We discussed the ultrasound findings. I spent 20 minutes with the patient. More than 50% was counseling . We shared images together. We considered options. I think we should follow this 1 more time in 3 months. That was my recommenda tion. She agreed to that. She will follow-up in 3 months with repeat ultrasound to confirm that this is stable. It is stable in the interval from its last ultrasound several weeks ago. [id number] Raul Ordonez MD [place] [address],[place] [address] 04/19/2023 12:03:50 04/19/2023 14:19:59 Mass of ovary [id number] R19.09 [id number] Raul Ordonez MD [place] [address],[place] [address] 05/03/2023 11:47:08 05/03/2023 13:10:29 Mass of ovary [id number] R19.09 53-year-ol d female who presents for follow-up on ovarian mass. The ovarian masses stable. A cystic structure addition to has resolved. The mass is the same size and appears to be benign. We will continue to follow it. She will follow-up 3 months for ultrasound and discussion [id number] Raul Ordonez MD [place] [address],[place] [address] 10/02/2023 12:17:19 10/02/2023 13:03:55 Pelvic mass [id number] R19.00 R93.89 [id number] Raul Ordonez MD [place] [address] [address] 10/04/2023 10:43:09 10/04/2023 11:54:42 Menopausal symptom [id number] N95.1 this patient is a 53-year-ol d female presents for follow-up on ovarian mass. We reviewed her ultrasound results. Talked about different treatments . Talked about surgical treatment. We will continue with observatio n. Discussed hormone replacemen t therapy in detail. We spent over 40 minutes face-to-fa ce. More than 50% was counseling . We discussed ovarian mass, malignancy risks, follow-up, CA 125, various pathology associated with ovarian mass. We talked in detail about hormone replacemen t therapy. Risk versus benefit. Estrogen alone and estrogen and progestero ne together. We talked about discontinu ation time, dosing, changes in libido. we agreed to start 1 mg of estradiol and 100 mg of micronized progestero ne. We talked about side effects. Talked about testostero ne addition. Talked about decreased libido. That is a big problem for her. We agreed to hold off on that tell a trial of estrogen and progestero ne was able to have his affect. Lack of libido [id number] R68.82 [id number] Raul Ordonez MD [place] [address] [address] 11/14/2023 14:06:29 11/14/2023 15:16:45 Family history of malignant neoplasm of uterus [id number] Z80.49 Pelvic mass 74006173 R19 .00 R93.89 53-year-ol d female with persistent pelvic mass of the right ovary. Patient has a strong family history of gynecologi c history. We have discussed various treatment options. Patient would like to proceed with definitive surgical treatment for the mass, her pain, and the family history. We have agreed to total laparoscop ic hysterecto my bilateral salpingo-o ophorectom y she understand s risks, benefits, and alternativ es. She has completed the informed consent process and is ready to proceed. We had a lengthy discussion regarding risk. we made a decision to perform surgery today. Pain in pelvis [id number] R10.2 [id number] Raul Ordonez MD [place] [address] [address] 01/01/2024 14:07:28 01/02/2024 01:42:23 Postoperative care [id number] Z48.89 female Patient presents for postop follow-up. She is 1 week postop from a total laparoscop ic hysterecto my bilateral salpingect omaira And bilateral oophorecto my. She has no complaints . Her incisions are clean dry and intact. She is recovering normally. She will follow-up as needed. Health Concerns Section Related Observation LastModified by Organization Detai ls LastModified Time None Recorded Concern Status LastModified by Organization Details LastModified Time None Recorded Advance Directives Directive None Recorded Payers Encounter Date Sequence Insurance Name Policy Number Policy Aguirre Covered Member ID Aguirre Member ID Guarantor Name 05/03/2023 1 [facility] ON OR AFTER 02/16/21 (MEDICAID REPLACEMENT - HMO) Daniela Pringle [id number] Daniela Pringle 10/02/2023 1 [facility] ON OR AFTER 02/16/21 (MEDICAID REPLACEMENT - HMO) Daniela Pringle [id number] Daniela Pringle 10/04/2023 1 [facility] ON OR AFTER 02/16/21 (MEDICAID REPLACEMENT - HMO) Daniela Pringle [id number] Daniela Pringle 11/14/2023 1 [facility] ON OR AFTER 02/16/21 (MEDICAID REPLACEMENT - HMO) Daniela Pringle [id number] Daniela Pringle 01/01/2024 1 [facility] ON OR AFTER 02/16/21 (MEDICAID REPLACEMENT - HMO) Daniela Pringle [id number] Daniela Pringle Notes Date Note Type Note Provider Name and Address Organization Details Recorded Time 05/03/2023 text/html 53-year-old lila garcia who presents for follow-up on ovarian mass. The ovarian masses stable. A cystic structure addition to has resolved. The mass is the same size and appears to be benign. We will continue to follow it. She will follow-up 3 months for ultrasound and discussion Raul Ordonez MD [address], [place], [address], [facility] 05/03/2023 12:57:19 10/04/2023 text/html this patient is a 53-year-old female presents for follow-up on ovarian mass. We reviewed her ultrasound results. Talked about different treatments. Talked about surgical treatment. We will continue with observation. Discussed hormone replacement therapy in detail. We spent over 40 minutes [id number]. More than 50% was counseling. We discussed ovarian mass, malignancy risks, follow-up, CA 125, various pathology associated with ovarian mass. We talked in detail about hormone replacement therapy. Risk versus benefit. Estrogen alone and estrogen and progesterone together. We talked about discontinuation time, dosing, changes in libido. we agreed to start 1 mg of estradiol and 100 mg of micronized progesterone. We talked about side effects. Talked about testosterone addition. Talked about decreased libido. That is a big problem for her. We agreed to hold off on that tell a trial of estrogen and progesterone was able to have his affect. Raul Ordonez MD [address], [place], [address], [facility] 10/04/2023 11:54:32 11/14/2023 text/html 53-year-old fema le with persistent pelvic mass of the right ovary. Patient has a strong family history of gynecologic history. We have discussed various treatment options. Patient would like to proceed with definitive surgical treatment for the mass, her pain, and the family history. We have agreed to total laparoscopic hysterectomy bilateral salpingo-oophorecto my she understands risks, benefits, and alternatives. She has completed the informed consent process and is ready to proceed. We had a lengthy discussion regarding risk. we made a decision to perform surgery today. Raul Ordonez MD [address], [place], [address], [facility] 11/14/2023 18:49:57 01/01/2024 text/html female Patient presents for postop follow-up. She is 1 week postop from a total laparoscopic hysterectomy bilateral salpingectomy And bilateral oophorectomy. She has no complaints. Her incisions are clean dry and intact. She is recovering normally. She will follow-up as needed. Raul Ordonez MD [address], [place], [address], [facility] 01/01/2024 19:05:34 OBGyn Episode Ob Episode Information Episode Created Date Number of Fetuses Patient Bloodtype Patient rh Status Prepregnancy Weight lbs Domestic Partner Domestic Partner Phone Father Name Food And Beverage Analyst Status 11/16/19 23 1 CLOSED Fetus Data First Name Last Name Admitted to NICU Weight (g) Sex Living Outcome Pediatric Complications Fetus ID Race Codes Race Delivery Type M [id number] Primary John Calculation Initial John Date Initial Exam Date Initial Exam Provider Initial Ultrasound Date Last Menstrual Period Date Ultra Sound Weeks Gestation 0 Eighteen To Twenty Week John Update Ultra Sound Date Fundal Height At Umbil Quickening Date Ultra Sound Latest Weeks Gestation Final John Confirmed By Final John Confirmed Date Final John Date Ultra Sound Latest Days Gestation 0 0 Menstrual History Last Menstrual Date Menses Monthly On Bcp Conception Prior Menses Frequency Hcg Plus Date Menarche Onset Age Delivery Information Delivery Date Delivery Type Labor Anesthesia Weeks Gestation Incision Type Labor Labor Length Hrs Delivered By Post Complications Tubal Sterilization Discharge Date Comments 4 Discharge Information Feeding Method Contraceptive Method Maternal HG B and HCT Levels
== END 2025-01-05 16:11 | disposition home or self-care (01) ==
LOC: ANHIMG 16:13
PROVIDERS: PCP Family Medicine; Visit Provider Obstetrics & Gynecology
DX: Z12.31 Encounter for screening mammogram for malignant neoplasm of breast (principal); R92.8 Other abnormal and inconclusive findings on diagnostic imaging of breast
CPT/HCPCS: 77063; 77067

== ENCOUNTER 2025-01-29 12:06 | Outpatient (CLI) | payer OTHER, SELFPAY ==
--- NOTE | ~2025-01-29 | MMUS_ITS ---
EXAMINATION: MM diagnostic beto BI w larry, US breast BI complete HISTORY: Follow-up breast asymmetries TECHNIQUE: Additional 3-D tomosynthesis images of the breasts were performed and synthetic 2-D images were generated. CAD analysis was submitted and interpreted. High resolution bilateral complete breas t ultrasound was performed. COMPARISON: Comparison to multiple prior studies sequentially, with oldest reviewed study dated 11/15. BREAST PARENCHYMAL COMPOSITION: Dense: The breasts are heterogeneously dense, which may obscure small masses FINDINGS: MAMMOGRAPHIC FINDINGS: The breasts are stable. No new masses, calcifications or architectural distortion in either breast to suggest malignancy. ULTRASOUND: Complete US of all 4 quadrants of the breast/s and retroareolar region was reviewed. Right breast: At 4:00, 3 cm from the nipple there is an oval parallel oriented hypoechoic 3 mm mass w ithout internal vascularity or posterior features, likely benign. At 10:00 near the nipple there is a n oval parallel oriented circumscribed hypoechoic 8 x 5 x 4 mm mass without internal vascularity or p osterior features, likely benign. Left breast: In the subareolar location of the left breast there is a 5 mm cyst. No suspicious masses in the left breast to suggest malignancy. IMPRESSION: 1. No evidence for malignancy in the left breast. Probable benign right breast masses by ultrasound. 2. Recommend 6 month follow-up Limited right breast ultrasound BI-RADS category 3, probably benign findings. Reviewed, dictated and finalized at location B. IMPRESSION: 1. No evidence for malignancy in the left breast. Probable benign right breast masses by ultrasound. 2. Recommend 6 month follow-up Limited right breast ultrasound BI-RADS category 3, probably benign findings.
--- OUTSIDE RECORDS SUMMARY | 2025-01-29 12:13 | XMS_ITS | Referral Summary ---
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
--- OUTSIDE RECORDS SUMMARY | 2025-01-29 12:13 | XMS_ITS | Clinical Summary ---
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
--- OUTSIDE RECORDS SUMMARY | 2025-01-29 12:13 | XMS_ITS | Clinical Summary ---
Author Organization [facility] Care Team Providers Care Payroll Manager Name Role Phone Unavailable Primary Care Provider Unavailabl e Social History Tobacco Use Types Packs/Day Years Used Date Smoking Tobacco: Never Assessed Comments Unknown Sex and Gender Information Value Date Recorded Sex Assigned at Not on file Legal Sex Female 3:09 PM FORMER HAND Gender Identity Not on file Sexual Orientation [...]
== END 2025-01-29 12:07 | disposition home or self-care (01) ==
LOC: ANHIMG 12:10
PROVIDERS: PCP Family Medicine; Visit Provider Obstetrics & Gynecology
DX: N63.10 Unspecified lump in the right breast, unspecified quadrant (principal); N63.20 Unspecified lump in the left breast, unspecified quadrant; R92.8 Other abnormal and inconclusive findings on diagnostic imaging of breast
CPT/HCPCS: 76641; 77062; 77066; G0279

== ENCOUNTER 2025-06-23 14:01 | Outpatient (CLI) | payer OTHER, SELFPAY ==
--- OUTSIDE RECORDS SUMMARY | 2006-07-10 06:30 | XMS_ITS | Continuity of Care Document ---
Author Organization [facility] Address [id number] [place] [address] [address] [place] [address] Phone Care Team Providers Care Auditor In Charge Name Role Phone Doisy, Edward Unavailable Unavailable Advance Directives Directive Yes / No Effective Date File Name No Information Encounters Encounter Description Practice Location Reason(s) For Visit Diagnoses Date Provider Providers Copied on Encounter [facility], [address], [place], [place], [id number], [place] tel:[phone] [facility] No Information 2-200 6 Doisy Edward. [address] , [address], [place], [address], [place]. tel:[phone] Family History Family Member Type Diagnosis Age At Onset No Information Payers Payer name Insurance type Covered constitution party ID Authoriza tion(s) No Information Social History Type Description Quantity Date Captured Comments Sex Female Smoking Status No Information Chief Complaint And Reason For Visit No Information Reason For Referral Reason For Referral No Information History Of Present Illness Encounter Date Complaint History Of Prese nt Illness No Information Functional Status Date Functional Assessmen t No Information Instructions Date Instruction Additional Infor mation No Information Assessments Type Assessment Date No Information Patient Care Teams Name Effective Dates (start - stop) Status Members No Information
--- NOTE | ~2025-06-23 | US_ITS ---
US breast RT limited 06/23/2025 13:04 Indication: Follow-up right breast mass Procedure: High-resolution Limited ultrasound of the right breast Comparison: Ultrasound dated 01/29/2025 Findings: At 4:00, 3 cm from the nipple there is a stable oval 4 x 3 x 3 mm hypoechoic mass with parallel orientation, no posterior features and no internal vascularity, likely benign. At 10:00, near the areola there is no discrete mass. The area of abnormality seen on prior study not appreciated. Impression: 1: Probable benign right breast mass at 4:00, 3 cm from the nipple. BI-RADS CATEGORY 3-PROBABLY BENIGN FINDING RECOMMENDATION: Six-month follow-up bilateral diagnostic mammogram and Limited right breast ultrasound recommended. Reviewed, dictated and finalized at location C. TITY ACCESS MANAGEMENT ARCHITECT Impression: 1: Probable benign right breast mass at 4:00, 3 cm from the nipple. BI-RADS CATEGORY 3-PROBABLY BENIGN FINDING RECOMMENDATION: Six-month follow-up bilateral diagnostic mammogram and Limited right breast ultrasound recommended.
--- OUTSIDE RECORDS SUMMARY | 2025-06-24 13:33 | XMS_ITS | Data Portability ---
Author Organization [facility] [employer], Main Office Address [address] [place] [address] Assessment No assessment recorded. Plan of Treatment Reminders Order Date Submit Date Provider Last Modified By Organization Details Last Modified Time Details Appointments Follow Up 15 2024 10:15A Austin Moreland NP Not available Not available Not available Lab drug of abuse panel, urine 2024 025 [email or web address] [facility] (Lab), [address] [place], [address], 12/03/2024 08:56:50 drug of abuse panel, urine 2023 [email or web address] [place] [address] (Lab), [address] [place], [address], 05/19/2024 08:13:47 vitamin D, 1,25-dihy droxy, serum 2023 024 JESUS [facility] (Lab), [address] [place], [address], 05/18/2024 12:22:23 TSH, serum or plasma [address] [place] [address] (Lab), [address] [place], [address], 05/19/2024 08:13:46 glycohemo globin, total, blood [address] [place] [address] (Lab), [address] [place], [address], 05/19/2024 08:13:46 CMP, serum or plasma 2023 024 [facility] (Lab), [address] [place], [address], 05/12/2024 23:37:10 hepatic function panel, serum [address] (Lab), [address] [place], [address], 05/19/2024 08:13:47 CBC w/ auto diff [address] (Lab), [address] [place], [address], 05/19/2024 08:13:46 lipid panel, serum [address] (Lab), [address] [place], [address], 05/19/2024 08:13:46 Referral None recorded. Procedures None recorded. Surgeries None recorded. Imaging MAMMO, screening , digital, bilateral - Please call patient to schedule. 2024 025 [email or web address] [facility] (One Call Scheduling), [address] [place], [address], 02/16/2025 12:05:29 Medication Orders nitroglyc anastasia 0.4 mg sublingua l tablet [address] [facility]/Pharmacy #2510, [address] [place], [address], 03/09/2025 12:36:24 clonidine HCl 0.1 mg tablet 2024 025 [email or web address] [facility]/Pharmacy #2510, [address] [place], [address], 04/01/2025 13:01:52 Adderall 10 mg tablet 2024 025 [email or web address] [facility] [address] [place] [address], [address], 03/09/2025 12:44:26 methylpre dnisolone 4 mg tablets in a dose pack 2024 025 [address] [place] [address], [address], 03/09/2025 11:22:13 Adderall 10 mg tablet 2024 025 [facility] [address] [place] [address], [address], 11/26/2024 09:59:37 Medrol (Andreas) 4 mg tablets in a dose pack 2023 024 [address] [place] [address], [address], 03/09/2025 11:22:13 lorazepam 0.5 mg tablet 2023 024 [facility] [address] [place] [address], [address], 08/06/2024 11:07:15 bupropion HCl XL 150 mg 24 hr tablet, extended release 2023 024 [facility] [address] [place] [address], [address], 08/06/2024 11:07:11 bupropion HCl XL 300 mg 24 hr tablet, extended release 2023 024 [facility] [address] [place] [address], [address], 08/06/2024 11:07:13 Medrol (Andreas) 4 mg tablets in a dose pack 2023 024 [email or web address] [facility]10, [address] [place], [address], 03/09/2025 11:22:13 rosuvasta tin 20 mg tablet 2023 024 JESUS [facility]/Pharmacy #2510, [address] [place], [address], 05/12/2024 11:17:37 cyclobenz aprine 10 mg tablet 2023 024 [facility]/Pharmacy #2510, [address] [place], [address], 11/26/2024 09:19:49 omeprazol e 20 mg capsule,d elayed release 2023 024 [facility] [address] [place], [address], 11/26/2024 09:20:59 Patient TargetsNo targets recorded. Patient Instructions Encounter Date Encounter Id Patient Instructions Last Modified By Organization Details Last Modified Time 03/09/2025 [id number] Personalized [facility] lth Plan and Screening Recommendations Advance Directives - Do you have one? Advance Directives - Do we have your advance directive on file in your health record? Primary Prevention/Interven tion (prevents or decreases the chance of common diseases from occurring) Smoking Risk: Alcohol Misuse Screening: Weight: Physical activity: Nutrition: Fall Risk (screened today): Vaccines Pneumococcal: Influenza: Chronic Disease Risks Stroke: Active diagnosis, Continue current treatment plan Heart Attack: Active diagnosis, Continue current treatment plan Clogging of the Arteries: Active diagnosis, Continue current treatment plan Diabetes: Active diagnosis, Continue current treatment plan Secondary Prevention/Interven tion (detects treatable diseases before they may cause symptoms, disability, or ) Prostate Cancer Screening: Colon Cancer Screening: Date Screening Last Performed: Eye Disease Screening: Your next exam in: Dementia Risk: Depression Screening: Active diagnosis, Continue current treatment plan [email or web address] Not available 03/09/2025 11:18:42 Reason for Referral None Reported. Results Created Date Observation Date Name Description Value Unit Range Abnormal Flag Note LastModifiedBy Organization Detail LastModifiedTime 07/03/20 24 07/03/2024 exerc ise stres s test No observ ation record ed. [email or web address] [facility] [address], [place], [address], 07/08/2024 22:16:43 07/09/20 24 07/09/2024 US, echoc ardio gram No observ ation record ed. [email or web address] [facility] [address], [place], [address], 07/10/2024 12:45:13 07/09/20 24 07/09/2024 US, alexx x, mika id arter y No observ ation record ed. [email or web address] [facility] [address], [place], [address], 07/10/2024 12:45:44 08/31/19 25 08/31/2024 home sleep study No observ ation record ed. [email or web address] [facility] [address], [place], [address], 09/01/2024 14:37:15 09/14/19 25 09/14/2024 exerc ise stres s test No observ ation record ed. [email or web address] [facility] [address] , [place], [address], 09/14/2024 21:33:14 01/07/20 25 01/05/2025 imagi ng inter preta tion No observ ation record ed. [email or web address] [facility] [address], [place], [address], 06/03/2025 12:47:57 01/30/20 25 01/29/2025 MAMMO , scree lakshmi, digit al, bilat eral No observ ation record ed. [facility] [address] [facility] [address], [place], [address], 02/16/2025 12:11:03 Result Notes None recorded. Problems Name Problem SNOMED Code Status Onset Date Resolution Date Notes Provider Name and Address Organization Details Recorded Time Abnormal weight gain 922997086 Active Not Available [facility] 3 02:55:16 Idiopathic scoliosis 904746882 Active Not Available [facility] 3 02:55:16 Abdominal pain 54381844 Active Not Available [facility] 3 02:55:16 Sciatica 96044929 Active Not Available [facility] 3 02:55:16 Essential hypertensi on 09355574 Active DHARMESH Ku [address], [address], [place], [address] , [employer] 5 11:28:18 Allergic rhinitis 21887598 Active Not Available [facility] 3 02:55:17 Adult health examinatio n Active 2022 Maria Luz Lo MD [address], [address], [place], [address] , [employer] 3 12:07:54 Chest pain 18140752 Active 2022 Maria Luz Lo MD [address], [address], [place], [address] , [employer] 3 11:08:29 Neck pain 11457923 Active 2022 Maria Luz Lo MD [address], [address], [place], [address] , [employer] 3 11:09:44 Hiatal hernia 97690471 Active 2022 Maria Luz Lo MD [address], [address], [place], [address] , [employer] 3 12:16:53 Anxiety 36664855 Active 2022 Maria Luz Lo MD [address], [address], [place], [address] , [employer] 3 11:57:12 COVID-19 583424445 Active 2022 Maria Luz Lo MD [address], [address], [place], [address] , [facility] [employer] [facility] 3 14:19:19 Sciatica 98579264 Active 2023 DHARMESH Ku [address], [address], [place], [address] , [facility] [employer] [facility] [employer] [facility] 4 11:12:30 Gastroesop hageal reflux disease without esophagiti s 638315457 Active 2023 DHARMESH Ku [address], [address], [place], [address] , [facility] [employer] [facility] 4 11:14:39 Attention deficit hyperactiv ity disorder 554742884 Active 2024 DHARMESH Ku [address], [address], [place], [address] , [facility] [employer] [facility] [employer] [facility] 5 09:56:56 Lump in upper outer quadrant of right breast 9359966327715 08 Active 2024 DHARMESH Ku [address], [address], [place], [address] , [facility] [employer] [facility] 5 12:09:02 Problem Notes None recorded. Procedures Surgical History Date Name Laterality Status Provider Name and Address Organization Details Recorded Time 03/09/20 25 Medicare Wellness CPT Code, Initial completed PAN Kwan [facility] [employer] [facility] 03/09/2025 11:18:43 01/18/20 23 EGD completed Garima Riley LPN [facility] [employer] [facility] 01/17/2023 10:24:34 01/18/20 23 colonoscopy completed Garima Riley LPN [facility] [employer] [facility] 01/17/2023 10:25:21 Hysterectomy completed Merna Garcia MA [employer] [facility] [employer] [facility] 11/26/2024 09:24:53 Imaging Results None recorded. Procedure Notes None recorded. Medical Equipment None Reported. Allergies Allergen ID Allergen Name Allergen Category Reaction Reaction Severity Criticality Documentation Date Start Date Code Code System Note Provider Name and Address Organization Details Recorded Time 4843 Substance with sulfonami de structure and antibacte rial mechanism of action (substanc e) medicatio n hives Not available Not available 10/17/2022 77770 8003 SNOMED Not Available [facility] 3 03:04:06 4844 erythromy gloria medicatio n hives Not available Not available 10/17/2022 4053 RxNorm Not Available [facility] 3 03:04:06 Medications Name Sig Start Date [...] Not Available clonidine HCl 0.1 mg tablet TAKE 1 TABLET BY MOUTH DAILY NEEDED FOR ELEVATED BLOOD PRESSURE active Not Available Not Available No t Available trazodone 50 mg tablet TAKE 1 [...] Available Not Available dextroamp hetamine- amphetami ne 10 mg tablet TAKE 1 TABLET BY MOUTH EVERY DAY active Not Available Not Available No t Available metoprolo l succinate ER 100 mg [...] Available Not Available Not Available amoxicill in 500 mg tablet TAKE 1 TABLET 3 TIMES A DAY UNTIL FINISHED 03/09 completed Not Available Not Available Not Available [...] 3 TIMES A DAY NEEDED FOR STRESS. *MUST LAST 30 DAYS* active Not Available Not Available No t Available estradiol 1 mg tablet TAKE 1 TABLET BY MOUTH EVERY DAY (PT NEED APPOINTM ENT FOR WELL WOMEN BEFORE NEXT REFILL) 03/09 completed Not Available Not Available Not Available Depo-Prov era 150 mg/mL intramusc ular [...] Available cephalexi n 500 mg capsule TAKE 1 CAPSULE BY MOUTH EVERY 12 HOURS FOR 5 DAYS active Not Available Not Available No t Available dextroamp hetamine- amphetami ne 20 mg tablet TAKE 1 TABLET BY MOUTH TWICE A DAY 04/27 completed Not Available Not Available Not Available losartan 25 mg tablet Take 1 tablet every day by oral route. 06/07 completed Not Available Not Available Not Available nitroglyc anastasia 0.4 mg sublingua l tablet TAKE 0.3 MG SUBLINGU ALLY 5MIN MAX: 3 DOSES W/IN 15MIN active Not Available Not Available No t Available omeprazol e 20 mg capsule,d elayed [...] DAY FOR A TOTAL OF 6 DAYS 03/09 completed Not Available Not Available Not Available albuterol sulfate HFA 90 mcg/actua tion [...] completed Not Available Not Available Not Available hydroxyzi ne pamoate 25 mg capsule TAKE [...] Not Available Not Available No t Available nitrofura ntoin monohydra te/macroc rystals 100 mg capsule TAKE 1 CAPSULE BY MOUTH TWICE DAILY FOR 5 DAYS active Not Available Not Available No t Available amoxicill in active Not Available Not Available Not Available Symbicort 80 mcg-4.5 mcg/actua tion HFA aerosol inhaler INHALE 2 PUFFS TWICE A DAY active Not Available Not Available No t Available metoprolo l succinate ER 50 mg capsule sprinkle, ext. release 24 hr Take 1 capsule every day by oral route. active Not Available Not Available No t Available Lyllana 0.05 mg/24 hr transderm al patch APPLY 1 PATCH TRANSDER CANDIE TWICE A WEEK active Not Available Not Available No t Available Paxlovid 300 mg (150 mg x 2)-100 mg tablets in a dose pack TAKE DIRECTED 05/12 completed Not Available Not Available Not Available Vitals Date Recorded Body height Body mass index (BMI) Body weight Body temperature Heart rate Oxygen saturation Oxygen saturation in Arterial blood by Pulse oximetry Pain severity - 0-10 verbal numeric rating [Score] - Reported Systolic And Diastolic Provider Name and Address Organization Details Last Updated DateTime 5 163.83 cm 22 kg/m2 12734.0 1 g 97.2 [degF] 77 /min 95 % 95 % 0 106/78 mm[Hg] Merna Garcia MA [facility] [employer] [facility] 5 09:18:49 Date Recorded Body height Body mass index (BMI) Body weight Body temperature Oxygen saturation Oxygen saturation in Arterial blood by Pulse oximetry Heart rate Systolic And Diastolic Provider Name and Address Organization Details Last Updated DateTime 5 163.83 cm 21 kg/m2 76667.4 5 g 96.7 [degF] 98 % 98 % 86 /min 110/78 mm[Hg] JerryPAN Braga [facility] [employer] 5 11:24:53 Date Recorded Body weight Heart rate Oxygen saturation Oxygen saturation in Arterial blood by Pulse oximetry Body temperature Systolic And Diastolic Provider Name and Address Organization Details Last Updated DateTime 4 25186.5 6 g 66 /min 98 % 98 % 98.7 [degF] 110/70 mm[Hg] Annette Coffamn RN [facility] [employer] [facility] 4 10:44:14 Date Recorded Systolic And Diastolic Provider Name and Address Organization Details Last Updated DateTime 05/20/2024 100/60 mm[Hg] Tahmina Cobb RN [facility] [employer] 05/20/2024 17:22:29 Date Recorded Body weight Body temperature Heart rate Oxygen saturation Oxygen saturation in Arterial blood by Pulse oximetry Systolic And Diastolic Provider Name and Address Organization Details Last Updated DateTime 4 12870.3 g 97.3 [degF] 87 /min 97 % 97 % 114/86 mm[Hg] Annette Coffman RN [facility] [employer] 10:33:52 Social History Question Answer Notes LastModified by Organization Details LastModified Time Tobacco Smoking Status Former Smoker [facility] [place] [facility] [employer] 11/26/2024 09:23:05 What Is Your Level Of [...] 11/26/2024 When Did You Quit Smoking? 16+yearssincelastci garsuzy Information not available 11/26/2024 Do You Use [...] anxious, or unable to sleep at night)? [id number] Information not available 11/26/2024 Family History Relationship [...] Diagnosis SNOMED-CT Code Diagnosis ICD10 Code Diagnosis IMO Codes Diagnosis Note [id number] JAVON James [facility] [address] [place] [address] 11/16/2022 10:11:15 11/16/2022 10:44:29 [id number] Maria Luz Lo MD [facility] [address] [place] [address] 11/29/2022 10:40:32 11/29/2022 11:14:46 Adult health examination 461522106 Z00.00 R53.83 Z13.220 Z13.1 N95.1 E55.9 colonoscop y referral givenmammo gram normal last weekfastin g labs up to daterecomm end shingles vaccine, yearly flu vaccine, covid booster Screening for malignant neoplasm of colon 609852875 Z12.11 Chest pain 46288646 R07. 9 Neck pain 17261321 M54.2 [id number] Maria Luz Lo MD [facility] Primary [facility] [address] [place] [address] 01/02/2023 11:37:07 01/02/2023 12:21:46 Neck pain 20422792 M54.2 improving, f/u prn Hiatal hernia 67142625 K 44.9 AH-needs EGDhas cscope scheduled on 01/17/23 (02/02/23) insurance ends [id number] DHARMESH Ku [facility] [address] [place] [address] 05/12/2024 10:35:36 05/12/2024 11:41:13 Idiopathic scoliosis 905162499 M41.119 Adult heal th examination 787131576 Z00.00 Z00.01 Discussed medication compliance and routine follow up.Discuss ed healthy diet and routine exercise.Ez norirsiewed vaccine records and made recommenda tions as needed.[facility], as well as twice yearly dental cleanings. Will check screening labs as listed below. Essential hypertension 90846566 I10 110/70 Sciatica 77557626 M54.32 Hyperlipidemia 40251636 E78.5 Gastroesop hageal reflux disease without esophagitis 251480809 K21.9 Anxiety 83739893 F41.9 VANITA-7 ()Tate es PRN Ativan.Jack s not need refill at this time.Discu ssed CSA agreement with patient, patient verbalized understand ing and is agreeable to routine drug screenings and follow up appts. [id number] ALICIA Rosenthal [facility] [address] [place] [address] 05/20/2024 17:02:31 05/20/2024 17:25:27 [id number] JAVON KuCortney [facility] Primary Care [address] [address] 08/06/2024 10:23:54 08/06/2024 12:01:36 Anxiety 33972026 F41.9 VANITA-7 ()Tate es PRN Ativan.Jack s not need refill at this time.Discu ssed CSA agreement with patient, patient verbalized understand ing and is agreeable to routine drug screenings and follow up appts. Renewal of prescription 816664262 Z76.0 Sciatica 31615467 M54.32 [id number] DHARMESH Ku [facility] [address] [address] 11/26/2024 09:09:42 11/26/2024 10:20:25 Long-term drug therapy 317309449 Z79.891 Will update drug screen in office today Sciatica 01102325 M54.32 Will refill dose pack as listed below. Discussed with patient that she needs to see pain management or neurosurge ry due to chronic pain. Patient is agreeable but would like to wait for the referral to be placed because her insurance is switching next month. Screening mammography 24 508380 Z12.31 Attention deficit hyperactivity disorder 405504976 F90.9 Will start Adderall as listed below. Patient is aware of CSA, UDS will be updated today. Patient is aware that if dose needs to be changed she will need to be referred to psych. [id number] DHARMESH Ku [facility] Primary [facility] Ilda palmer [address] [facility] [address] [place] [address] 03/09/2025 10:59:38 03/09/2025 11:33:35 Attention deficit hyperactivity disorder 802754679 F90.9 Will start Adderall as listed below. Patient is aware of CSA, UDS will be updated today. Patient is aware that if dose needs to be changed she will need to be referred to psych. Essential hypertension 74329246 I10 64389 Chest pain 01474587 R07. 9 Health Concerns Section Related Observation LastModified by Organization Detai ls LastModified Time None Recorded Concern Status LastModified by Organization Details LastModified Time None Recorded Advance Directives Directive None Recorded Payers Insurance Date Sequence Insurance Name Policy Number Policy Aguirre Covered Member ID Aguirre Member ID Guarantor Name 03/15/2025 1 [facility] - DOS ON OR AFTER 21 (MEDICAID REPLACEMENT - HMO) Daniela Pringle [id number] Daniela Pringle 01/02/2023 1 [facility] PRIOR TO 02/16/2021 (MEDICAID REPLACEMENT - HMO) Daniela Pringle [id number] Daniela Pringle Notes Date Note Type Note Provider Name and Address Organization Details Recorded Time 05/12/2024 text/html ROS as noted in the HPI Patient is a 54 year old female that presents to the office for annual wellness. Patient reports she is doing well on current medications. Patient denies chest pain and shortness of breath, nausea vomiting and diarrhea. Patient reports her primary concern is that she is going to see her dad in [place] and the car ride is always aggravating [...] has been sober for 2 weeks. labs-orderedMammogra t-RAYSVS-mlianwtknnu y in MayColonoscopy-UTD-- January 2023Flu-declinesCovi v-EWBOegd-osdacSmjwd les-one dose DHARMESH Ku [address], [address], [place], [address], [employer] 05/12/2024 12:11:31 08/06/2024 text/html ROS as noted in the HPI Patient is a 54 year old female [...] is doing well. 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 Patient denies chest pain and shortness of breath. DHARMESH Ku [address], [address], [place], [address], [employer] 08/17/2024 13:45:29 11/26/2024 text/html ROS as noted in the HPI Patient is here for 3 month follow [...] for ADHD. DHARMESH Mcconnell [address], [facility] [address], [place], [address], [employer] [facility] 11/26/2024 10:26:37 03/09/2025 text/html ROS as noted in the HPI Patient is a 55 year old female that presents to the office for 3 month follow up. Patient reports she is doing well on current medications and has no concerns at this time. JAVON Ku-C [address], [facility] [address], [place], [address], [employer] [facility] 03/09/2025 12:45:14 OBGyn Episode No OBEpisode recorded.
--- OUTSIDE RECORDS SUMMARY | 2025-06-24 13:33 | XMS_ITS | Clinical Summary ---
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 Gender Identity Not on file Sexual Orientation Not on file Plan of Treatment Health Maintenance Due Date Last Done Comments Hepatitis C Virus (HCV) Screening 1971 TdaP Immunization 1971 Hepatitis B Immunization (1 of 3 - 19+ 3-dose series) 1990 Pap Smear 01/15/1992 Cervical Cancer Screening (CCS) 2001 HPV/Cotest 2001 Cologuard 01/15/2016 Colonoscopy 01/15/2016 Colorectal Cancer Screening 01/15/2016 Immunochemical Fecal Occult Blood 01/15/2016 Pneumococcal Immunization (5 0+ years) (1 of 1 - PCV) 2021 Zoster Immunization (1 of 2) 2021 Influenza Immunization (#1) 2025 08/07/2015 SARS-COV-2 Immunization (3 - season) 2025 11/28/2020, 11/03/2020 Respiratory Syncytial Virus (RSV) Immunization (Adult) (1 - 1-dose 75+ series) 2046 Human Papillomavirus (HPV) Immunization Aged Out No longer eligible b ased on patient's age to complete this topic Meningococcal Immunization (ACWY) Aged Out No longer eligible b ased on patient's age to complete this topic Rotavirus Immunization Aged Out No lo nger eligible based on patient's age to complete this topic
--- OUTSIDE RECORDS SUMMARY | 2025-06-24 13:33 | XMS_ITS | Clinical Summary ---
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
== END 2025-06-23 14:02 | disposition home or self-care (01) ==
LOC: ANHFOHIMG 14:02
PROVIDERS: PCP Family Medicine; Visit Provider Nurse Practitioner Family
DX: N63.11 Unspecified lump in the right breast, upper outer quadrant (principal); R92.8 Other abnormal and inconclusive findings on diagnostic imaging of breast
CPT/HCPCS: 76642